=== PATIENT | female | born 1970 | race Caucasian/White ===

== ENCOUNTER 2023-08-29 09:25 | Outpatient (AMB) | payer OTHER, SELFPAY ==
--- NOTE | 2023-08-29 09:13 | A.OFFPC_ITS ---
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 Intake Note: New patient visit Allergies No Known Allergies Allergy (Verified 08/29/23 09:55) Medication List - Last Reconciled 08/29/23 by Jeanie Orantes PA-C calcium carbonate 1,200 mg PO DAILY magnesium citrate 100 mg PO DAILY multivitamin 1 tab PO DAILY Tobacco use date assessed: 08/29/23 Dental Screening Dental Screen Date: 08/29/23 Did you have a dental visit in the last 12 months?: Yes Did you have a dental problem in the last 6 months where you did not have access to dental care?: No Was dental information given to patient?: Patient has dentist 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 She is transferring from [facility]. She used to follow with N[facility]. She has a significant past medical history of alcohol abuse, thrombocytopenia, leukopenia, cirrhosis, oesteopenia, menopause, and insomnia. She states that she can not recall the she had labs. -she made this appointment today because she thinks she needs her blood checked. She does report easy bruising. She states in the last two months she has noted the increased easy bruising. She states that nothing will happen and she will wake up with bruising on her extremities. She will sometimes also get it around her pant lines. She does believe she has cirrhosis. She used to follow with GI at [facility] but states that she was lost to follow up a little over a year ago. -She does note a rash on the chest that started about 2 weeks. She denies any itching, inflammation or irritation. She has tried hydrocortisone cream without improvement. No pain with this rash. No changes in any products. -No spontaneous bloody noses, no fatigue . No blood in stool or urine. Psych: She does drink every day day. She was told to quit but has not. She has been drinking regularly since the age of 22. She states that she is currently following with a rehab counselor, [facility] and different support groups. She used to be on naltrexone which was somewhat effective but then she started drinking again. She states that she does have a good support system at home. Pap: due this coming year. Mammogram: overdue Bone density: osteopenia- completed in 2022- on calcium supplements Colonoscopy: 06/16/2022- due in7 years Mother has rectal ca PFSH Medical History Easy bruising Thrombocytopenia Menopause Loss of balance Hypersplenism Cytopenia ASCUS with positive high risk HPV cervical Alcoholic liver disease Alcohol abuse Family History (Updated 08/29/23 @ 09:20 by Sushma Aly CMA) Mother Cancer of rectum Father Hypertension Social History (Updated 08/29/23 @ 09:37 by Sushma Aly CMA) Housing: House (Two family house, second floor) Patient Tobacco Use Status: Never used Tobacco e-Cigarette/Vaping Use: Never Used Second Hand Smoke Exposure: Yes (Fiance vapes) service: No Current occupational status: employed 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 1. Little interest or pleasure in doing things: not at all 2. Feeling down, depressed, or hopeless: not at all 3. Trouble falling or staying asleep, or sleeping too much: more than half the days 4. Feeling tired or having little energy: several days 5. Poor appetite or overeating: more than half the days 6. Feeling bad about yourself - or that you are a failure or have let yourself or your family down: several days 7. Trouble concentrating on things, such as reading the newspaper or watching television: not at all 8. Moving or speaking so slowly that other people could have noticed. Or the opposite - being so fidgety or restless that you have been moving around a lot more than usual: not at all 9. Thoughts that you would be better off or of hurting yourself in some way: not at all Total score: 6 Depression Screening Interpretation: Positive Depression Screening Follow-up: Existing condition, In treatment, Community Mental Health Worker F/U and Declines treatment Depression Screening Done: Yes 92737 - PHQ-9 Billing: Yes Source: Developed by Drs. Hossein Dougherty, Song Carbajal and colleagues, with an educational marco a from [employer]. Thrive Questionnaire Date Thrive assessed: 08/29/23 I am a: Patient What is your living situation today?: I have a steady place to live Within the past 12 months, did the food you bought not last and you didn't have the money to get more?: Never true Within the past 12 months, did you worry whether your food would run out before you got money to buy more?: Never true Do you have trouble paying for medicines?: No Do you have trouble getting transportation to medical appointments?: No Do you have trouble paying your heating and electricity bill?: No Do you have trouble taking care of your child, family member or friend?: No Do you have trouble with day-to-day activities such as bathing, preparing meals, shopping, managing finances, etc.?: No Are you currently unemployed and looking for a job?: No Are you interested in more education?: No Please select the resources that you would like help with: None Currently or been in a relationship where the following occur: no concerns reported THRIVE Score: 0 AUDIT C Alcohol Use Questionnaire (AUDIT-C) 1. How often do you have a drink containing alcohol?: 2-3 times a week 2. How many drinks containing alcohol do you have on a typical day when you are drinking?: 3 or 4 3. How often do you have six or more drinks on one occasion?: Never Total Score: 4 Score Reviewed/Action Taken: Yes LETICIA-7 AMB Questionnaire LETICIA-7 Date LETICIA - 7 assessed: 08/29/23 Feeling nervous, anxious, or on edge: 1 = Several days Not being able to stop or control worryin = Several days Worrying too much about different things: 1 = Several days Trouble relaxin = Several days Being so restless that it is hard to sit still: 0 = Not at all Becoming easily annoyed or irritable: 0 = Not at all Feeling afraid as if something awful might happen: 0 = Not at all Total LETICIA-7 score (0-4 normal; 5-9 mild; 10-14 moderate; 15-21 severe): 4 Source: Developed by Starla Trevino Kurt Kroenke and colleagues, with an educational marco a from [employer]. LETICIA-7 Assessment Billing LETICIA-7 Assessment Tool: LETICIA-7 Assessment 34024 Physical exam (Primary Care) Vital Signs: Last Vital Signs Temp 98.4 F 08/29/23 09:34 Pulse 102 H 08/29/23 09:34 Resp 14 08/29/23 09:34 BP 100/60 08/29/23 09:34 Pulse Ox 96 08/29/23 09:34 Oxygen Delivery Method Room Air 08/29/23 09:34 BMI result Body Mass Index 22.3 Tobacco/Smoking Status: Tobacco use Status Tobacco use date assessed 08/29/23 08/29/23 09:37 Patient Tobacco Use Status Never used Tobacco 08/29/23 09:37 e-Cigarette/Vaping Use Never Used 08/29/23 09:37 PHQ-9: PHQ-9 Score PHQ-9: Total score 6 08/29/23 09:40 Depression Screening Interpretation: Positive Depression Screening Follow-up: Existing condition, In treatment, Community Mental Health Worker F/U and Declines treatment Thrive Assessment: Date of Thrive Assessment Date Thrive assessed 08/29/23 08/29/23 09:40 Currently or been in a relationship where the following occur: no concerns reported Const Orientation/consciousness: patient oriented x3 HENMT Ears: hearing grossly normal bilaterally Neck Thyroid: Thyroid normal Lymphatic: no lymphadenopathy noted Resp Auscultation: clear to auscultation bilaterally Cardio Rate: regular rate Rhythm: regular rhythm Heart sounds: S1 normal heart sound present and S2 normal heart sound present GI Inspection: Yes normal to inspection Palpation (GI): Soft to palpation and Other GI palpation findings present (nontender, no cva tenderness) Auscultation: normoactive bowel sounds Skin Other: There does appear to be a scattered petechial rash noted on her legs. She has a petechial rash along her bra strap line. She has purplish ecchymotic lesions throughout her lower extremities, 1 on her abdomen at the center belt line. Spider angiomas noted on the anterior upper chest wall. Neuro General: patient oriented x3, gait normal and no focal motor deficits Assessment and Plan Assessment & Plan (1) Alcoholic liver disease: Code(s): K70.9 - Alcoholic liver disease, unspecified Plan: Labs and ultrasound ordered. Referral to GI. (2) Thrombocytopenia: Code(s): D69.6 - Thrombocytopenia, unspecified Plan: We will check CBC. Strongly advised her to cut back on drinking. She is going to discuss this with her counselor and look for in addiction medicine specialist. She has not sure if she wants to do this yet but states that she will contact her insurance to see who she could see. She does understand that she can not just quit drinking cold turkey and we will need to cut back. We also discussed rehab facilities but she does not want to do this yet. (3) Easy bruising: Code(s): R23.3 - Spontaneous ecchymoses Plan: Labs ordered (4) Encounter to establish care: Code(s): Z76.89 - Persons encountering health services in other specified circumstances Plan: Labs ordered. Mammogram ordered. Referral to GI and mri tech placed. Requested records. Two week follow up. Sooner if needed. Patient understands and agrees with the plan. Orders: Orders Comprehensive Met. Panel Today D69.6 - Thrombocytopenia, unspecified, K70.9 - Alcoholic liver disease, unspecified, R23.3 - Spontaneous ecchymoses, Z76.89 - Persons encountering health services in other specified circumstances TSH reflex Free T4 Today D69.6 - Thrombocytopenia, unspecified, K70.9 - Alcoholic liver disease, unspecified, R23.3 - Spontaneous ecchymoses, Z76.89 - Persons encountering health services in other specified circumstances IRON PROFILE Today D69.6 - Thrombocytopenia, unspecified, K70.9 - Alcoholic liver disease, unspecified, R23.3 - Spontaneous ecchymoses, Z76.89 - Persons encountering health services in other specified circumstances Lipid Panel Today D69.6 - Thrombocytopenia, unspecified, K70.9 - Alcoholic liver disease, unspecified, R23.3 - Spontaneous ecchymoses, Z76.89 - Persons encountering health services in other specified circumstances MM screening mammo BI Today Z12.31 - Encounter for screening mammogram for malignant neoplasm of breast Complete Blood Count Auto Diff Today D69.6 - Thrombocytopenia, unspecified, K70.9 - Alcoholic liver disease, unspecified, R23.3 - Spontaneous ecchymoses, Z76.89 - Persons encountering health services in other specified circumstances Vitamin B12 and Folate Today D69.6 - Thrombocytopenia, unspecified, K70.9 - Alcoholic liver disease, unspecified, R23.3 - Spontaneous ecchymoses, Z76.89 - Persons encountering health services in other specified circumstances Ferritin Today D69.6 - Thrombocytopenia, unspecified, K70.9 - Alcoholic liver disease, unspecified, R23.3 - Spontaneous ecchymoses, Z76.89 - Persons encountering health services in other specified circumstances Referrals CUSTOMER PROJECT MANAGER Referral D69.6 - Thrombocytopenia, unspecified, K70.9 - Alcoholic liver disease, unspecified, Z01.419 - Encounter for gynecological examination (general) (routine) without abnormal findings Gastroenterology Referral D69.6 - Thrombocytopenia, unspecified, K70.9 - Alcoholic liver disease, unspecified Coding Level of Care Code New Pt Level 4 (21535) Complex EM visit Add On G2211 Diagnoses Alcoholic liver disease K70.9 Thrombocytopenia D69.6 Easy bruising R23.3 Encounter to establish care Z76.89 Additional Codes LETICIA-7 Assessment Billing - LETICIA-7 Assessment Tool: LETICIA-7 Assessment 62875 ([id number])
[2023-08-29 09:34] VITALS: BP 100/60; PULSE 102; RESP 14; TEMP 36.9; O2SAT 96; BMI 22.3
== END 2023-08-29 10:15 | disposition home or self-care (01) ==
PROVIDERS: PCP Family Medicine; Visit Provider Physician Assistant
DX: K70.9 Alcoholic liver disease, unspecified (principal); D69.6 Thrombocytopenia, unspecified; R23.3 Spontaneous ecchymoses; Z76.89 Persons encountering health services in other specified circumstances
CPT/HCPCS: 99204; G2211

== ENCOUNTER 2023-08-29 10:42 | Outpatient (REF) | payer OTHER, SELFPAY ==
[2023-08-29 15:37] LABS: Hemoglobin 11.1 g/dl (12.0-16.0); Imm Gran Abs Auto 0.03 X10*3/uL (0.00-0.03); Imm Gran Pct Auto 1.9 % (0.0-0.4); MANUAL DIFF FLAG SCAN; Red Cell Distribution Width 18.7 % (11.0-16.0); SCAN SMEAR FLAG 1
[2023-08-29 15:39] LABS: Basophils Percent Auto 2.6 % (0-2); Eosinophils Absolute Auto 0.1 X10*3/uL (0.0-0.4); Eosinophils Percent Auto 3.8 % (0-4); Hematocrit 33.2 % (37.0-47.0); Lymphocytes Absolute Auto 0.5 X10*3/uL (1.2-4.9); Lymphocytes Percent Auto 30.1 % (20-40); Mean Corpuscular HGB Conc 33.4 g/dl (31.0-35.0); Mean Corpuscular Hemoglobin 30.8 pg (27.0-33.0); Mean Corpuscular Volume 92.2 fL (80.0-98.0); Monocytes Absolute Auto 0.2 X10*3/uL (0.1-1.2); Monocytes Percent Auto 14.1 % (2-11); Neutrophils Absolute Auto 0.7 x10*3/uL (2.0-8.3); Neutrophils Percent Auto 47.5 % (45-73)
[2023-08-29 15:45] LABS: Alanine Aminotransferase 41 U/L (0-31); Albumin Level 3.9 g/dL (3.5-5.0); Alkaline Phosphatase 100 U/L (39-117); Anion Gap 11 (12-20); Aspartate Amino Transferase 180 U/L (5-31); Bilirubin Total 1.5 mg/dL (0.0-1.0); Blood Urea Nitrogen 3 mg/dL (9-16); Calcium 9.6 mg/dL (8.4-10.2); Carbon Dioxide 31 mmol/L (22-29); Chloride 105 mmol/L (96-108); Cholesterol 208 mg/dL (<200); Estimated Glomerular Filt Rate > 60; Glucose Random 104 mg/dL (60-115); HDL Cholesterol 105 mg/dL (>40); Iron 169 mcg/dL (30-160); LDL Cholesterol Calculated 92 mg/dL (<100); Percent Iron Saturation 53 % (15-50); Potassium 3.9 mmol/L (3.3-5.1); Sodium 143 mmol/L (135-145); Total Iron Binding Capacity 319 mcg/dL (228-428); Total Protein 7.7 g/dL (6.5-8.0); Triglycerides 59 mg/dL (<150); Unsaturated Iron Binding 150 ug/dL
[2023-08-29 15:59] LABS: Ferritin 82 ng/mL (10-250); TSH reflex Free T4 0.78 uIU/mL (0.32-4.0)
[2023-08-29 16:11] LABS: Folate > 20.0 ng/mL (> or = 4.0); Vitamin B12 866 pg/mL (200-900)
[2023-08-29 17:49] LABS: White Blood Count 1.6 X10*3/uL (4.8-10.8)
[2023-08-29 17:52] LABS: PLT ABN DIST 1; Platelet Count 12 X10*3/uL (160-400)
[2023-08-29 18:05] LABS: SLIDE REVIEW VERIFIED
== END 2023-08-29 10:43 | disposition home or self-care (01) ==
LOC: HO.WFDLDS 10:42
PROVIDERS: Visit Provider Physician Assistant
DX: R23.3 Spontaneous ecchymoses (principal); D69.6 Thrombocytopenia, unspecified; K70.9 Alcoholic liver disease, unspecified; Z76.89 Persons encountering health services in other specified circumstances
CPT/HCPCS: 36415; 80053; 80061; 82607; 82728; 82746; 83540; 84443; 85025

== ENCOUNTER 2023-08-30 10:41 | Inpatient (IN) | payer OTHER, SELFPAY ==
[2023-08-30] VITALS (8 sets, daily range): BP systolic 100–138; BP diastolic 56–71; PULSE 89–113; RESP 16–18; TEMP 36.8–37.1; O2SAT 96–99; BMI 22.5
--- NOTE | ~2023-08-30 | US_ITS ---
EXAMINATION: US ABDOMEN LIMITED CLINICAL INFORMATION: 53-year-old female with elevated LFTs questionable cirrhosis. COMPARISON: None available. TECHNIQUE: Real-time imaging of the right upper quadrant abdominal viscera. FINDINGS: PANCREAS: Normal. LIVER: Liver is heterogeneous with mildly nodular contour without intrahepatic masses, ductal dilatation. Not enlarged there is no ascites. There is hepatopetal flow in portal vein and hepatofugal flow and hepatic vein. GALLBLADDER: There is edematous wall of gallbladder measured 1.2 cm possibly fluid in the wall. There is no evidence of cholelithiasis. Sonographic Arboleda's sign reported positive. COMMON BILE DUCT: Normal in caliber measuring 0.7 cm in diameter. RIGHT KIDNEY: Normal. No hydronephrosis. No renal calculi or focal parenchymal lesions. The kidney measures 9.7 cm in maximum dimension. FREE FLUID: None. US/US abdomen limited IMPRESSION: Most likely acute acalculus cholecystitis with wall thickening, pericholecystic fluid collection and sonographic Arboleda's sign. This critical result was discussed with LUIZ Zavala on 06/04/2023 at 1318 hours and it was ascertained that the content and urgency of this report was understood at the time of direct communication.
--- NOTE | ~2023-08-30 | CT_ITS ---
EXAMINATION: CT HEAD WITHOUT CONTRAST CLINICAL INFORMATION: Headaches. Low platelet count COMPARISON: None available. TECHNIQUE: Contiguous axial imaging was performed from the skull base to vertex without intravenous administration of contrast. This CT examination was performed using dose optimization techniques as appropriate, variously including the following: *Automated exposure control *Adjustment of mA and/or kV according to patient size (this includes techniques or standardized protocols for targeted exams where dose is matched to indication/reason for exam; i.e. extremities or head) *Use of iterative reconstruction technique DLP: 567 mGy-cm FINDINGS: Sulci and ventricles are slightly prominent but there is no intra or extra-axial fluid collection or hemorrhage, mass, or mass effect. Calvarium intact. CT/CT head/brain wo IV con IMPRESSION: No intracranial hemorrhage.
--- NOTE | 2023-08-30 11:18 | ED.GENADULT ---
HPI - General Adult General Chief complaint: Recheck/Abnormal Lab/Rx Stated complaint: abnormal labs Time Seen by Provider: 08/30/23 12:34 Source: patient Mode of arrival: ambulatory Limitations: no limitations History of Present Illness ED Provider: DR. Joshi HPI narrative: 53-year-old female history of alcohol abuse, history of thrombocytopenia sent from her new PCP office for significant thrombocytopenia, patient report easy bruising and black and white lesion on her left lower extremity, patient also admit to drinking alcohol every day patient suffer from alcohol withdrawal symptoms including shakiness, withdrawal seizure. Patient admit to on and off black stool Today patient had a normal color bowel movement. Otherwise no bleeding from anywhere else. Related Data Home Medications ?Medication ?Instructions ?Recorded ?Confirmed calcium carbonate 1,200 mg PO DAILY 08/29/23 08/30/23 magnesium citrate 100 mg capsule 100 mg PO BEDTIME 08/29/23 08/30/23 multivitamin 1 tab PO DAILY 08/29/23 08/30/23 arnica 20 % topical tincture 1 ea topical TID 08/30/23 08/30/23 Allergies Allergy/AdvReac Type Severity Reaction Status Date / Time No Known Allergies Allergy Verified 08/30/23 11:20 Review of Systems Review of Systems: All other systems are reviewed and are negative Constitutional: Reports as per HPI and Reports no additional constitutional complaints Eyes: Reports as per HPI and Reports no additional eye complaints Reports system reviewed and no additional complaints, except as documented Cardiovascular: Reports as per HPI and Reports no additional cardiovascular complaints Respiratory: Reports as per HPI and Reports no additional respiratory complaints Gastrointestinal: Reports as per HPI and Reports no additional gastrointestinal complaints Genitourinary: Reports no additional female genitourinary complaints Musculoskeletal: Reports no additional musculoskeletal complaints Skin/Breast: Reports system reviewed and no additional complaints, except as docu Psychiatric: Reports no additional psychiatric complaints Endocrine: Reports no additional endocrine complaints Hematologic/Lymphatic: Reports no additional hematologic/lymphatic complaints Allergic/Immunologic: Reports no additional allergic/immunologic complaints Reports system reviewed and no additional complaints, except as documented and Reports Abnormal speech present PMFSH Past Medical History Medical History Easy bruising Thrombocytopenia Menopause Loss of balance Hypersplenism Cytopenia ASCUS with positive high risk HPV cervical Alcoholic liver disease Alcohol abuse Family History Family History Mother Cancer of rectum Father Hypertension Social History Social History Housing: House (Two family house, second floor) Alcohol intake: current Alcohol intake frequency: 3 or more drinks per day Alcohol type: beer and hard liquor Patient Tobacco Use Status: Never used Tobacco Smoked in Last 30 Days: No e-Cigarette/Vaping Use: Never Used Second Hand Smoke Exposure: Yes (Fiance vapes) Use of substances other than those prescribed or required for medical reasons: No Advance Directives: No Advance Directives Information Provided: Yes service: No Current occupational status: employed 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 Blood pressure elevated. Heart rate normal. Respiratory rate normal. Temperature normal. Oxygen saturation normal. Appearance: Alert. Oriented X3. No acute distress. Head: Normal external exam. Normocephalic. Atraumatic. No Long signs noted. No raccoon eyes noted Eyes: PERRLA. EOMI. Conjunctiva and sclera normal. Eyelids normal. ENT: TM's Normal. Pharynx normal. Uvula midline. Moist mucous membranes. No trismus noted. No drooling noted. No muffled voice noted. Neck: Normal inspection. Neck supple. FROM. No adenopathy. Thyroid Normal. No meningeal signs. No neck mass noted. CVS: Normal heart rate and rhythm. Heart sound normal. No murmurs noted. Pulses normal throughout. Respiratory: No respiratory distress. Painless inspiration. Breath sounds normal. No wheezes/rales/rhonchi noted. Chest nontender. No accessory muscle usage noted or decreased air movement noted. Abdomen: Soft and nontender. Bowel sounds normal in all 4 quadrants. No distention noted. No organomegaly noted. No visible injury noted. Rectal exam: Brown stool guaiac negative, no active bleeding. Back: No CVA tenderness. Full range of motion noted. Skin: Skin warm and dry. Normal skin color. Normal skin turgor. No rashes/lesions/lacerations noted. Extremities: Multiple random ecchymosis on both lower extremity. Neuro: Oriented X 3. Cranial nerve exam: II-XII are grossly intact No motor deficit. No sensory deficit. Reflexes normal. Course Course Course Narrative: This is an RME done by LUIZ Valladares: Additional HPI, ROS, PE not included below will be deferred to primary provider. 53 year old female pmh of thrombocytopenia, menopause, hypersplenism, cytopenia, alcoholic liver disease, alcohol abuse presents with concerns of low platelet count (12), according to her PCP. Reports she drinks about 5-6 beers a day, the last drink today before she came in. Denies pain, dizziness, nausea. She reports easy bruising. Chemistry results from 08/28 show pancytopenia. Appearance: Alert.? Oriented X3.? No acute cardiopulmonary distress distress.? Head: Normocephalic, atraumatic, no step-offs or deformities CVS: Pulses normal.? Respiratory: No respiratory distress.? Abdomen: Soft and nontender.? Skin: ? Normal skin color. Extremities: 5/5 strength to bilateral upper and lower extremities Neuro: Oriented X 3.? No motor deficit.? No sensory deficit. Reevaluation(s) Reevaluation #1: 53-year-old female report history of alcoholic liver cirrhosis and chronic thrombocytopenia, came in with platelet of 10,000 with on an of black stool, case discussed with Dr. Diaz who recommended transfuse 2 units of platelet. Patient will need admission and serial CBC because potential history of alcohol withdrawal will start the patient on phenobarb. Time: 13:15 Medications Administered Discontinued Medications Generic Name Dose Route Start Last Admin Trade Name Freq PRN Reason Stop Dose Admin Phenobarbital Sodium 168 mg 08/30/23 14:00 08/30/23 14:31 Phenobarbital Sodium 130 Mg/Ml Im Once IM 08/30/23 14:01 168 mg ONCE ONE Administration Medical Decision Making Differential Diagnosis Differential Diagnoses: The differential diagnosis associated with the presentation includes ( Active GI bleed, hematuria, coagulopathy, thrombocytopenia, severe anemia, electrolyte derangement, alcohol withdrawal, Intracranial bleed.) Admission/Observation Consideration of admission/observation: Escalation of care including admission/observation considered Consult Healthcare Provider Management of the patient was discussed with: Hospitalist ( Dr. Merchant ) Lab Data MDM Lab Attestation statement: I reviewed the patient's lab results. 08/30/23 12:02 08/30/23 12:02 Labs: Lab Results 08/30/23 08/30/23 08/30/23 Range/Units 12:02 13:18 14:23 WBC 1.7 L (4.8-10.8) X10*3/uL RBC 3.63 L (4.20-5.50) X10*6/uL Hgb 11.3 L (12.0-16.0) g/dl Hct 33.7 L (37.0-47.0) % MCV 92.8 (80.0-98.0) fL MCH 31.1 (27.0-33.0) pg MCHC 33.5 (31.0-35.0) g/dl RDW 18.7 H (11.0-16.0) % Plt Count 10 L* (160-400) X10*3/uL MPV 9.9 (9.4-12.3) fL Immature Gran % (Auto) 0.0 (0.0-0.4) % Neut % (Auto) 51.9 (45-73) % Lymph % (Auto) 27.5 (20-40) % Pen[place] % (Auto) 17.0 H (2-11) % Eos % (Auto) 1.8 (0-4) % Baso % (Auto) 1.8 (0-2) % Lymph # (Auto) 0.5 L (1.2-4.9) X10*3/uL [place] # (Auto) 0.3 (0.1-1.2) X10*3/uL Eos # (Auto) 0.0 (0.0-0.4) X10*3/uL Baso # (Auto) 0.0 (0.0-0.2) X10*3/uL Abs Immat Gran (auto) 0.00 (0.00-0.03) X10*3/uL Absolute Neuts (auto) 0.9 L (2.0-8.3) x10*3/uL Absolute Nucleated RBC 0.000 (0.0-0.012) X10*3/uL Nucleated RBC % (auto) 0.0 (0.0-0.2) /100WBC Smear Tech's Comments VERIFIED PT 15.4 H (11.1-13.3) SEC INR 1.3 H (0.9-1.1) Sodium 144 (135-145) mmol/L Potassium 4.0 (3.3-5.1) mmol/L Chloride 105 (96-108) mmol/L Carbon Dioxide 30 H (22-29) mmol/L Anion Gap 13 (12-20) BUN 4 L (9-16) mg/dL Creatinine 0.58 (0.5-1.4) mg/dL Estim Creat Clear Calc 93.8 Estimated GFR > 60 Random Glucose 100 (60-115) mg/dL Calcium 9.8 (8.4-10.2) mg/dL Magnesium 1.7 (1.6-2.6) mg/dL Total Bilirubin 1.5 H (0.0-1.0) mg/dL AST 184 H (5-31) U/L ALT 41 H (0-31) U/L Alkaline Phosphatase 103 (39-117) U/L Total Protein 7.8 (6.5-8.0) g/dL Albumin 4.0 (3.5-5.0) g/dL Stool Occult Blood NEGATIVE (NEGATIVE) Ethyl Alcohol 356 H* mg/dL Blood Type A Positive Antibody Screen NEGATIVE Independent Interpretation I performed an independent interpretation of an: CT Scan ( Head: No acute intracranial bleed.) Radiology Impression Discussion of test interpretation with radiology: I have reviewed the radiologist's reading. Critical Care Time Critical Care Time Critical Care Time: Yes Total Critical Care Time: 45 Attestation: The patient was critically ill with a high probability of imminent or life-threatening deterioration. I spent greater than 30 minutes of discontinuous time evaluating the patient, delivering critical care at the bedside, discussing evaluating data with consultants. Critical care time does not include time spent performing separately billable procedures or teaching. Time spent performing critical care was 45 minutes. Discharge Plan Discharge Clinical Impression: Thrombocytopenia, Alcohol withdrawal Patient Disposition: Admitted As Inpatient
[2023-08-30 12:11] LABS: Basophils Percent Auto 1.8 % (0-2); Eosinophils Percent Auto 1.8 % (0-4); Hematocrit 33.7 % (37.0-47.0); Hemoglobin 11.3 g/dl (12.0-16.0); Lymphocytes Absolute Auto 0.5 X10*3/uL (1.2-4.9); Lymphocytes Percent Auto 27.5 % (20-40); MANUAL DIFF FLAG SCAN; Mean Corpuscular HGB Conc 33.5 g/dl (31.0-35.0); Mean Corpuscular Hemoglobin 31.1 pg (27.0-33.0); Mean Corpuscular Volume 92.8 fL (80.0-98.0); Mean Platelet Volume 9.9 fL (9.4-12.3); Monocytes Absolute Auto 0.3 X10*3/uL (0.1-1.2); Neutrophils Absolute Auto 0.9 x10*3/uL (2.0-8.3); Neutrophils Percent Auto 51.9 % (45-73); Red Blood Count 3.63 X10*6/uL (4.20-5.50); Red Cell Distribution Width 18.7 % (11.0-16.0); SCAN SMEAR FLAG 1
[2023-08-30 12:12] LABS: White Blood Count 1.7 X10*3/uL (4.8-10.8)
[2023-08-30 12:14] LABS: INTERNATIONAL NORM RATIO 1.3 (0.9-1.1); Platelet Count 10 X10*3/uL (160-400); Prothrombin Time 15.4 SEC (11.1-13.3)
[2023-08-30 12:22] LABS: Alanine Aminotransferase 41 U/L (0-31); Alkaline Phosphatase 103 U/L (39-117); Anion Gap 13 (12-20); Aspartate Amino Transferase 184 U/L (5-31); Bilirubin Total 1.5 mg/dL (0.0-1.0); Blood Urea Nitrogen 4 mg/dL (9-16); Calcium 9.8 mg/dL (8.4-10.2); Carbon Dioxide 30 mmol/L (22-29); Chloride 105 mmol/L (96-108); Creatinine Clr Calc Pharmacy 93.8; Estimated Glomerular Filt Rate > 60; Ethanol 356 mg/dL; Glucose Random 100 mg/dL (60-115); Magnesium 1.7 mg/dL (1.6-2.6); Sodium 144 mmol/L (135-145); Total Protein 7.8 g/dL (6.5-8.0)
[2023-08-30 12:34] LABS: SLIDE REVIEW VERIFIED
--- NOTE | 2023-08-30 14:14 | PHA.MEDREC ---
Pharmacy Consult ? Medication Reconciliation Pharmacy has completed the medication reconciliation.
[2023-08-30] MEDS: PHENobarbitaL sodium 130 MG/ML IM ONCE 168 MG IM (14:31)
[2023-08-30 14:33] LABS: OBS Int Ctl Valid YES; OBS1 NEGATIVE (NEGATIVE)
--- NOTE | 2023-08-30 15:21 | P.HPHOSP_ITS ---
<Statement entered by Teresa Merchant MD - 09/03/23 14:30> the patient was seen and evaluated with LUIZ Zavala. I agree with her note, assessment and plan with the following. In summary, a 53 years old lady with PMH of alcohol use disorder, hepatic cirrhosis , portal hypertension, and pancytopenia presenting intoxicated with alcohol with severe pancytopenia Pancytopenia likely related to alcoholism. check retics, hep C,B and HIV get hematology eval CIWA protocol and PHenobarbital for the withdrawals Rest of evaluations by PA note. History of Present Illness Date of Service: 08/30/23 Attending physician on admission: Teresa Merchant Chief Complaint: low blood counts 53-year-old female with alcohol use disorder, hepatic cirrhosis complicated by portal hypertension, and pancytopenia presents to the ED at the recommendation of her PCP following CBC reflective of severe pancytopenia. The patient reports she has been drinking between 6-8 beers on a daily basis though her partner (yvonne Hook at bedside) notes that they are often additional nips consumed throughout the day. She has significant bruising throughout her body. She also reports several episodes of dark stool over the last few weeks but is also taking iron supplementation. No fevers, chills, abdominal pain, nausea, vomiting, diarrhea, hematochezia, shortness of breath, lightheadedness, syncope, chest pain. She denies any comorbid mood disorder and denies any SI/HI. Since arrival, patient tachycardic to 113, vital signs otherwise stable. She is pancytopenic with WBC 1.7, RBC 3.63, H/H 11.3/33.7% (stable from yesterday), platelets 10,000. Renal function within normal limits, electrolyte levels normal. Total bilirubin 1.5, AST 184, ALT 41. PT 15.4, INR 1.3. Ethyl alcohol level 356. Head CT pending but on my read appears to have some atrophy but negative for any acute intracranial abnormality. ED discuss case with hematology recommending transfusion of 2 units platelets. She has also been loaded with phenobarbital per protocol. Review of Systems 2 Review of Systems: Yes all other systems are reviewed and are negative PMFSH Medical History Easy bruising Thrombocytopenia Menopause Loss of balance Hypersplenism Cytopenia ASCUS with positive high risk HPV cervical Alcoholic liver disease Alcohol abuse Family History Mother Cancer of rectum Father Hypertension Social History Housing: House (Two family house, second floor) Alcohol intake: current Alcohol intake frequency: 3 or more drinks per day Alcohol type: beer and hard liquor Patient Tobacco Use Status: Never used Tobacco Smoked in Last 30 Days: No e-Cigarette/Vaping Use: Never Used Second Hand Smoke Exposure: Yes (Fiance vapes) Use of substances other than those prescribed or required for medical reasons: No Advance Directives: No Advance Directives Information Provided: Yes Nutrition Risks: No Nutritional Risk service: No Current occupational status: employed 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 [employer] Current occupational exposures/hazards: No Cognitive needs: No Hearing needs: No Vision needs: No Meds Allergies Allergy/AdvReac Type Severity Reaction Status Date / Time No Known Allergies Allergy Verified 08/30/23 11:20 Active Medications: Current Medications Acetaminophen (Acetaminophen 325 Mg Tablet) 650 mg PO Q6H PRN PRN Reason: Pain, Mild (Pain Scale 1-3) Sodium Chloride (Ns) 1,000 mls @ 100 mls/hr IVCONT .Q10H BOOM Thiamine HCl 100 mg/ Sodium (Chloride) 101 mls @ 202 mls/hr IV DAILY BOOM Folic Acid 1 mg/ Sodium (Chloride) 50.2 mls @ 100.4 mls/hr IV DAILY BOOM Stop: 09/01/23 09:29 Magnesium Hydroxide (Milk Of Magnesia 30 Ml Oral.Susp) 30 ml PO DAILY PRN PRN Reason: Constipation Ondansetron HCl (Ondansetron Hcl 4 Mg/2 Ml Vial) 4 mg IVPUSH Q8H PRN PRN Reason: Nausea and Vomiting Pharmacy Consult (Consult Rx Etoh Phenob Im/Po) 1 each MISCELLANE ONCE PRN; Protocol PRN Reason: Consult order Phenobarbital (Phenobarbital 15 Mg Tablet) 45 mg PO BID BOOM Stop: 09/01/23 21:01 Phenobarbital (Phenobarbital 30 Mg Tablet) 30 mg PO BID BOOM Stop: 09/03/23 21:01 Phenobarbital (Phenobarbital 30 Mg Tablet) 30 mg PO DAILY BOOM Stop: 09/05/23 09:01 Phenobarbital Sodium (Phenobarbital Sodium 65 Mg/Ml Vial Q3hx2) 126 mg IM Q3H BOOM Stop: 08/30/23 20:01 Sodium Chloride (0.9 % Sodium Chloride Flush 3 Ml Syringe) 3 ml IVFLUSH QSHIFT [facility] Home Medications ?Medication ?Instructions ?Recorded ?Confirmed ?Last Taken ?Type calcium carbonate 1,200 mg PO DAILY 08/29/23 08/30/23 08/30/23 History magnesium citrate 100 mg capsule 100 mg PO BEDTIME 08/29/23 08/30/23 08/29/23 History multivitamin 1 tab PO DAILY 08/29/23 08/30/23 Unknown History arnica 20 % topical tincture 1 ea topical TID 08/30/23 08/30/23 Unknown History Physical Exam 2 Vital Signs and Narrative: Vital Signs: Last Vital Signs Temp 98.2 F 08/30/23 14:51 Pulse 107 H 08/30/23 14:51 Resp 16 08/30/23 14:51 BP 121/68 08/30/23 14:51 Pulse Ox 97 08/30/23 14:45 O2 Del Method Room Air 08/30/23 14:45 BMI result Body Mass Index 22.5 Constitutional - Awake and Alert, No apparent distress Eyes - PERRLA, EOMI Cardiovascular - S1S2, RRR, No edema Respiratory - Normal lung expansion, Normal respiratory effort, No respiratory distress, CTA bilaterally Gastrointestinal - NT / ND; +BS; No rebound or guarding Extremities - no calf tenderness bilaterally, no swelling Skin - Warm/Dry Neurological - Alert & oriented to self and place (reports its 2014 but does correct herself), slurred speech, slight tremors. CN II-XII otherwise in tact. 5/5 strength bue and ble Psychological - Appropriate affect Results Labs 08/30/23 12:02 08/30/23 12:02 Labs: Laboratory Results - last 24 hr 08/30/23 08/30/23 08/30/23 12:02 13:18 14:23 MCV 92.8 MCH 31.1 MCHC 33.5 RDW 18.7 H Plt Count 10 L* MPV 9.9 Immature Gran % (Auto) 0.0 Neut % (Auto) 51.9 Lymph % (Auto) 27.5 [place] % (Auto) 17.0 H Eos % (Auto) 1.8 Baso % (Auto) 1.8 Lymph # (Auto) 0.5 L [place] # (Auto) 0.3 Eos # (Auto) 0.0 Baso # (Auto) 0.0 Abs Immat Gran (auto) 0.00 Absolute Neuts (auto) 0.9 L Absolute Nucleated RBC 0.000 Nucleated RBC % (auto) 0.0 Smear Tech's Comments VERIFIED PT 15.4 H INR 1.3 H Anion Gap 13 Estim Creat Clear Calc 93.8 Estimated GFR > 60 Random Glucose 100 Calcium 9.8 Magnesium 1.7 Total Bilirubin 1.5 H AST 184 H ALT 41 H Alkaline Phosphatase 103 Total Protein 7.8 Albumin 4.0 Stool Occult Blood NEGATIVE Ethyl Alcohol 356 H* Blood Type A Positive Antibody Screen NEGATIVE Assessment and Plan (1) Alcohol withdrawal: Status: Acute (2) Pancytopenia: Status: Acute (3) Easy bruising: Status: Acute (4) Alcoholic liver disease: Status: Acute Plan 53-year-old female with alcohol use disorder, hepatic cirrhosis complicated by portal hypertension, and pancytopenia admitted for further management of severe pancytopenia in the setting of alcoholic cirrhosis and alcohol intoxication with impending withdrawal. #severe pancytopenia- due to alcoholic liver disease -WBC 1.8, plt 10k -transfuse 2 units platelets per hematology -OOB with assist -hematology consult -head ct pending but appears negative for acute intracranial abnormality -follow cbc #Chronic normocytic anemia -h/h baseline, above transfusion threshold #Dark stool- ongoing weeks -stool occult blood negative -follow h/h closely, hold on gi consult for now -add po ppi # alcohol use disorder with impending withdrawal -intoxicated on arrival with ethyl alcohol level 356 -slightly tremulous on exam but continue slurring speech. Head CT pending -phenobarbital per protocol initiated by ED provider. Continue phenobarbital -monitor CIWA q.4h -IV thiamine, folic acid -addiction medicine consult -alcohol cessation advised #Sonography reported acute cholecystis -pt afebrile without RUQ ttp, no n/v -lipase wnl -continue ivf -monitor for now # alcoholic liver disease- with portal htn- probable cirrhosis -plan as above -had ultrasound elastography performed 10/2021- given elevated liver enzymes with vascular congetsion, stage of liver fibrosis was felt to possibly be overestimated. Liver elastography stiffness value 17.5, however consistent with cirrhosis -us abd rohit ordered dvt prophylaxis- scps full code Patient requires inpatient stay at least 2 midnights for management of severe pancytopenia requiring expert consultation and platelet transfusion with close monitoring of blood counts and will also require treatment with phenobarbital per protocol for impending alcohol withdrawal in patient who does desire detox Quality Stroke Does the patient have a stroke diagnosis?: No VTE Prior VTE?: No VTE Risk Level:: Medical - moderate - high VTE Device Contraindication: N/A - Device Ordered VTE Drug Contraindication: Treatment Not Indicated
[2023-08-30] MEDS: Folic Acid 1 MG in 0.9 % Sodium Chloride 50 ML 100.4 MG IV (16:43)
[2023-08-30] MEDS: 0.9 % Sodium Chloride 1,000 ML 100 ML IVCONT (17:27)
[2023-08-30] MEDS: Thiamine HCL 100 MG in 0.9 % Sodium Chloride 100 ML 202 MG IV (17:28)
[2023-08-30] MEDS: PHENobarbitaL sodium 65 MG/ML VIAL Q3Hx2 126 MG IM ×2 (17:43→20:35)
[2023-08-30 18:05] LABS: Amphetamine Screen Urine Not Detected (Not Detect); Appearance Urine Clear; Barbiturates, Urine POSITIVE (Not Detect); Benzodiazepines Screen Urine Not Detected (Not Detect); Buprenorphine Scr Not Detected (Not Detect); Cannabinoid Screen Urine Not Detected (Not Detect); Cocaine Screen Urine Not Detected (Not Detect); Color Urine Yellow; Fentanyl, urine Not Detected (Not Detect); Glucose Urine UA Negative (Negative); Leukocyte Esterase Urine Negative (Negative); Methadone Screen, Urine Not Detected (Not Detect); Nitrite Urine Negative (Negative); Opiate Screen Urine Not Detected (Not Detect); Oxycodone Screen Urine Not Detected (Not Detect); Phencyclidine Screen Urine Not Detected (Not Detect); Specific Gravity - Urine 1.015 (1.005-1.025); Urine Blood Negative (Negative); Urine Ketones Trace mg/dL (Negative); Urine Protein Negative (Neg-Trace)
[2023-08-30 20:02] LABS: Lipase 55 U/L (8-78)
--- NOTE | 2023-08-30 23:48 | PC.NURSE ---
pt resting comfortably with eyes closed, breathing even and unlabored, no apparent distress noted.
[2023-08-31 00:52] VITALS: BP 113/59; PULSE 93; RESP 16; TEMP 36.1; O2SAT 93
[2023-08-31 00:55] VITALS: BMI 24.1
[2023-08-31 03:11] VITALS: BP 116/68; PULSE 100; RESP 16; TEMP 36.7; O2SAT 95
[2023-08-31] MEDS: 0.9 % Sodium Chloride 1,000 ML 100 ML IVCONT ×3 (03:11→20:34)
[2023-08-31] MEDS: Omeprazole 20 MG CAPSULE.DR PO (05:31)
[2023-08-31 06:31] LABS: Basophils Percent Auto 1.6 % (0-2); Eosinophils Percent Auto 2.4 % (0-4); Hemoglobin 9.6 g/dl (12.0-16.0); Lymphocytes Absolute Auto 0.4 X10*3/uL (1.2-4.9); Lymphocytes Percent Auto 33.9 % (20-40); MANUAL DIFF FLAG SCAN; Mean Corpuscular HGB Conc 33.1 g/dl (31.0-35.0); Mean Corpuscular Hemoglobin 30.1 pg (27.0-33.0); Mean Corpuscular Volume 90.9 fL (80.0-98.0); Mean Platelet Volume 9.5 fL (9.4-12.3); Monocytes Absolute Auto 0.2 X10*3/uL (0.1-1.2); Monocytes Percent Auto 16.5 % (2-11); Neutrophils Absolute Auto 0.6 x10*3/uL (2.0-8.3); Neutrophils Percent Auto 45.6 % (45-73); Red Blood Count 3.19 X10*6/uL (4.20-5.50); Red Cell Distribution Width 18.6 % (11.0-16.0); SCAN SMEAR FLAG 1; White Blood Count 1.3 X10*3/uL (4.8-10.8)
[2023-08-31 06:35] LABS: Platelet Count 14 X10*3/uL (160-400)
--- NOTE | 2023-08-31 06:38 | PC.NURSE ---
Lab called for a critical WBC= 1.[address] =14, relayed to Dr. Feliciano.
[2023-08-31 06:43] LABS: Anion Gap 11 (12-20); Blood Urea Nitrogen 3 mg/dL (9-16); Calcium 8.8 mg/dL (8.4-10.2); Carbon Dioxide 26 mmol/L (22-29); Chloride 107 mmol/L (96-108); Creatinine Clr Calc Pharmacy 106.7; Estimated Glomerular Filt Rate > 60; Glucose Random 89 mg/dL (60-115); Potassium 3.7 mmol/L (3.3-5.1); Sodium 140 mmol/L (135-145)
[2023-08-31 07:35] VITALS: BP 141/72; PULSE 102; RESP 18; TEMP 36.9; O2SAT 98
[2023-08-31 07:38] LABS: SLIDE REVIEW VERIFIED
[2023-08-31] MEDS: 0.9 % Sodium Chloride Flush 3 ML SYRINGE IVFLUSH (09:15)
[2023-08-31] MEDS: PHENobarbitaL 15 MG TABLET 45 MG PO ×2 (09:16→20:34)
[2023-08-31] MEDS: Thiamine HCL 100 MG in 0.9 % Sodium Chloride 100 ML 202 MG IV (09:16)
[2023-08-31] MEDS: Multivitamin TABLET 1 TAB PO (09:16)
--- NOTE | 2023-08-31 09:31 | MHC.CM.PN ---
Patient from home w/ partner, Monster. Functionally independent. Denies use of DME or services. PCP Camron Molina MD Patient completed HCP naming HCA's: 1) mom Debo [phone] and 2) partner Monster Patient reports daily drinking. States she has community resources including a life skills coach and therapist at [facility] in [place]. She is aware of consult to addiction med and open to discussing w/ wheel and caster repairer. DP: Home self care vs addiction med intervention. Partner can provide transportation. CM will continue to follow.
[2023-08-31] MEDS: Folic Acid 1 MG in 0.9 % Sodium Chloride 50 ML 100.4 MG IV (11:29)
--- NOTE | 2023-08-31 11:59 | HO.PM.IMPN ---
Subjective Subjective Date of Service: 08/31/23 Interval History: Seen and evaluated this morning feels better overall but still tremelous denies fever or chills Review of Systems Review of Systems: Yes all other systems are reviewed and are negative Physical Exam Vital Signs: Vital Signs: Last Vital Signs Temp 98.4 F 08/31/23 07:35 Pulse 102 H 08/31/23 07:35 Resp 18 08/31/23 07:35 BP 141/72 H 08/31/23 07:35 Pulse Ox 98 08/31/23 07:35 O2 Del Method Room Air 08/31/23 07:35 BMI result Body Mass Index 24.1 Const: Other: Constitutional : Awake, interactive Neck : Normal inspection, Supple Cardiovascular : RRR, no JVP, no lower extremity edema Respiratory : good bilateral air entry, no crackles, wheezes or rhonchi Gastrointestinal: soft, lax, Normal bowel sounds, Non tender Skin : Warm, Dry Neurological : Alert & oriented x3, No focal deficit, tremors on rest worse with movement Objective Data Active Medications Acetaminophen (Acetaminophen 325 Mg Tablet) 650 mg PO Q6H PRN PRN Reason: Pain, Mild (Pain Scale 1-3) Calcium Carbonate (Calcium Carbonate 500 Mg Tablet) 1,000 mg PO DAILY [facility] Last Admin: 08/31/23 09:16 Dose: 1,000 mg Documented By: JM Sodium Chloride (Ns) 1,000 mls @ 100 mls/hr IVCONT .Q10H [facility] Last Admin: 08/31/23 03:11 Dose: 100 mls/hr Documented By: HERNAN Thiamine HCl 100 mg/ Sodium (Chloride) 101 mls @ 202 mls/hr IV DAILY [facility] Last Infusion: 08/31/23 10:21 Dose: Infused Documented By: JM Folic Acid 1 mg/ Sodium (Chloride) 50.2 mls @ 100.4 mls/hr IV DAILY [facility] Stop: 09/01/23 09:29 Last Admin: 08/31/23 11:29 Dose: 100.4 mls/hr Documented By: JM Magnesium Hydroxide (Milk Of Magnesia 30 Ml Oral.Susp) 30 ml PO DAILY PRN PRN Reason: Constipation Multivitamins/Vitamin C (Multivitamin Tablet) 1 tab PO DAILY [facility] Last Admin: 08/31/23 09:16 Dose: 1 tab Documented By: JM Omeprazole (Omeprazole 20 Mg Capsule.Dr) 20 mg PO DAILY@0630 [facility] Last Admin: 08/31/23 05:31 Dose: 20 mg Documented By: HERNAN Ondansetron HCl (Ondansetron Hcl 4 Mg/2 Ml Vial) 4 mg IVPUSH Q8H PRN PRN Reason: Nausea and Vomiting Pharmacy Consult (Consult Rx Etoh Phenob Im/Po) 1 each MISCELLANE ONCE PRN; Protocol PRN Reason: Consult order Phenobarbital (Phenobarbital 15 Mg Tablet) 45 mg PO BID [facility] Stop: 09/01/23 21:01 Last Admin: 08/31/23 09:16 Dose: 45 mg Documented By: JM Phenobarbital (Phenobarbital 30 Mg Tablet) 30 mg PO BID [facility] Stop: 09/03/23 21:01 Phenobarbital (Phenobarbital 30 Mg Tablet) 30 mg PO DAILY [facility] Stop: 09/05/23 09:01 Sodium Chloride (0.9 % Sodium Chloride Flush 3 Ml Syringe) 3 ml IVFLUSH QSHIFT [facility] Last Admin: 08/31/23 09:15 Dose: 3 ml Documented By: JM Labs 08/31/23 05:57 08/31/23 05:57 Labs: Laboratory Results - last 24 hr 08/30/23 08/30/23 08/30/23 12:02 13:18 14:23 MCV 92.8 MCH 31.1 MCHC 33.5 RDW 18.7 H Plt Count 10 L* MPV 9.9 Immature Gran % (Auto) 0.0 Neut % (Auto) 51.9 Lymph % (Auto) 27.5 [place] % (Auto) 17.0 H Eos % (Auto) 1.8 Baso % (Auto) 1.8 Lymph # (Auto) 0.5 L [place] # (Auto) 0.3 Eos # (Auto) 0.0 Baso # (Auto) 0.0 Abs Immat Gran (auto) 0.00 Absolute Neuts (auto) 0.9 L Absolute Nucleated RBC 0.000 Nucleated RBC % (auto) 0.0 Smear Tech's Comments VERIFIED PT 15.4 H INR 1.3 H Anion Gap 13 Estim Creat Clear Calc 93.8 Estimated GFR > 60 Random Glucose 100 Calcium 9.8 Magnesium 1.7 Total Bilirubin 1.5 H AST 184 H ALT 41 H Alkaline Phosphatase 103 Total Protein 7.8 Albumin 4.0 Lipase 55 Urine Color Urine Appearance Urine pH Ur Specific [place] Urine Protein Urine Glucose (UA) Urine Ketones Urine Blood Urine Nitrite Ur Leukocyte Esterase Stool Occult Blood NEGATIVE Urine Opiates Screen Ur Buprenorphine Scrn Ur Oxycodone Screen Urine Methadone Screen Urine Fentanyl Screen Ur Barbiturates Screen Ur Phencyclidine Scrn Ur Amphetamines Screen U Benzodiazepines Scrn Urine Cocaine Screen U Marijuana (THC) Screen Ethyl Alcohol 356 H* Blood Type A Positive Antibody Screen NEGATIVE 08/30/23 08/31/23 17:40 05:57 MCV 90.9 MCH 30.1 MCHC 33.1 RDW 18.6 H Plt Count 14 L* MPV 9.5 Immature Gran % (Auto) 0.0 Neut % (Auto) 45.6 Lymph % (Auto) 33.9 [place] % (Auto) 16.5 H Eos % (Auto) 2.4 Baso % (Auto) 1.6 Lymph # (Auto) 0.4 L [place] # (Auto) 0.2 Eos # (Auto) 0.0 Baso # (Auto) 0.0 Abs Immat Gran (auto) 0.00 Absolute Neuts (auto) 0.6 L Absolute Nucleated RBC 0.000 Nucleated RBC % (auto) 0.0 Smear Tech's Comments VERIFIED PT INR Anion Gap 11 L Estim Creat Clear Calc 106.7 Estimated GFR > 60 Random Glucose 89 Calcium 8.8 D Magnesium Total Bilirubin AST ALT Alkaline Phosphatase Total Protein Albumin Lipase Urine Color Yellow Urine Appearance Clear Urine pH 6.0 Ur Specific [place] 1.015 Urine Protein Negative Urine Glucose (UA) Negative Urine Ketones Trace Urine Blood Negative Urine Nitrite Negative Ur Leukocyte Esterase Negative Stool Occult Blood Urine Opiates Screen Not Detected Ur Buprenorphine Scrn Not Detected Ur Oxycodone Screen Not Detected Urine Methadone Screen Not Detected Urine Fentanyl Screen Not Detected Ur Barbiturates Screen POSITIVE H Ur Phencyclidine Scrn Not Detected Ur Amphetamines Screen Not Detected U Benzodiazepines Scrn Not Detected Urine Cocaine Screen Not Detected U Marijuana (THC) Screen Not Detected Ethyl Alcohol Blood Type Antibody Screen Assessment and Plan (1) Alcohol withdrawal: Status: Acute (2) Pancytopenia: Status: Acute (3) Alcoholic liver disease: Status: Acute (4) Thrombocytopenia: Status: Acute Plan 53-year-old female with alcohol use disorder, hepatic cirrhosis complicated by portal hypertension, and pancytopenia admitted for further management of severe pancytopenia in the setting of alcoholic cirrhosis and alcohol intoxication with impending withdrawal. #severe pancytopenia likely due to alcoholic liver disease no signs of infection or bleeding WBC 1.3, plt 14k transfused 2 units platelets per hematology hematology consult, Transfuse PLT if less than 10 or bleeding follow CBC #Chronic normocytic anemia h/h baseline, above transfusion threshold #Dark stool takes Iron supplement stool occult blood negative po ppi # alcohol use disorder with acute withdrawal Head CT negative for any acute findings intoxicated on admission but was started on PHenobarbital at that time More tremulous this morning Continue phenobarbital, add extra doses if needed CIWA q.4h IV thiamine, folic acid addiction medicine consult keep on IVF today #Sonography reported acute cholecystis afebrile without RUQ ttp, no n/v lipase wnl continue ivf monitor # alcoholic liver disease with portal htn The patient likely has cirrhosis as US showing heterogenicity and nodular surface of liver dvt prophylaxis- scps full code Patient requires inpatient stay overnight for management of severe pancytopenia requiring expert consultation and platelet transfusion with close monitoring of blood counts and will also require treatment with phenobarbital per protocol for alcohol withdrawal in patient who does desire detox Quality Stroke Does the patient have a stroke diagnosis?: No VTE Prior VTE?: No VTE Risk Level:: Medical - moderate - high VTE Device Contraindication: N/A - Device Ordered VTE Drug Contraindication: Treatment Not Indicated
--- NOTE | 2023-08-31 12:43 | PM.HEMONCCN ---
Subjective - Subjective Chief complaint: Consult for: Pancytopenia. Patient: new to practice Consult date: 08/31/23 Requesting Physician: Shonda Primary Care Provider: Camron Molina MD Family Provider: Jesse. Medical Summary: DIAGNOSIS: PANCYTOPENIA. LIVER CIRRHOSIS. HPI - Consult Narrative Reason for consult: Consult for: Pancytopenia. Narrative: Mimi Suarez is a 53 year old lady, with alcohol use disorder, hepatic cirrhosis complicated by portal hypertension, and pancytopenia presents to the ED at the recommendation of her PCP following CBC reflective of severe pancytopenia. She has been drinking between 6-8 beers on a daily basis though her partner (yvonne Hook at bedside) notes that they are often additional nips consumed throughout the day. She has significant bruising throughout her body. She also reports several episodes of dark stool over the last few weeks but is also taking iron supplementation. No fevers, chills, abdominal pain, nausea, vomiting, diarrhea, hematochezia, shortness of breath, lightheadedness, syncope, chest pain. She denies any comorbid mood disorder and denies any SI/HI. On arrival, she was tachycardic to 113, vital signs otherwise stable. DATABASE: She is pancytopenic with WBC 1.7, RBC 3.63, H/H 11.3/33.7% (stable from yesterday), platelets 10,000. Renal function within normal limits, electrolyte levels normal. Total bilirubin 1.5, AST 184, ALT 41. PT 15.4, INR 1.3. Ethyl alcohol level 356. Head CT pending but on my read appears to have some atrophy but negative for any acute intracranial abnormality. She was transfused 2 units platelets. She has also been loaded with phenobarbital per protocol. Review of Systems Review of Systems: Yes all other systems are reviewed and are negative PMFSH Medical History Easy bruising Thrombocytopenia Menopause Loss of balance Hypersplenism Cytopenia ASCUS with positive high risk HPV cervical Alcoholic liver disease Alcohol abuse Family History: Mother Cancer of rectum Father Hypertension Review of Systems - Constitutional Reports system reviewed and no additional complaints, except as documented, Reports anorexia, Reports body ache(s), Reports daytime sleepiness, Reports fatigue, Reports lack of energy, Reports malaise, Reports poor appetite, Reports weight loss - Eyes Reports system reviewed and no additional complaints, except as documented - ENT Reports system reviewed and no additional complaints, except as documented - Cardiovascular Reports system reviewed and no additional complaints, except as documented - Respiratory Reports no additional respiratory complaints - Gastrointestinal Reports system reviewed and no additional complaints, except as documented - Genitourinary Reports no additional female genitourinary complaints - Musculoskeletal Reports system reviewed and no additional complaints, except as documented - Integumentary/Breasts Skin/Breast: Reports no additional skin complaints - Neurologic Reports system reviewed and no additional complaints, except as documented - Psychiatric Reports system reviewed and no additional complaints, except as documented - Endocrine Reports no additional endocrine complaints - Hematologic/Lymphatic Reports system reviewed and no additional complaints, except as documented - Allergic/Immunologic Reports system reviewed and no additional complaints, except as documented Oncology Screenings - ECOG Performance Status ECOG Performance Status: 2 [facility] Medical History: Medical History (Last Reviewed 08/30/23 @ 15:34 by LUIZ Zavala) Alcohol abuse Alcoholic liver disease ASCUS with positive high risk HPV cervical Cytopenia Easy bruising Hypersplenism Loss of balance Menopause Thrombocytopenia Functional capacity: bed bound Patient : No Family History: Family History (Last Reviewed 08/30/23 @ 15:34 by LUIZ Zavala) Mother Cancer of rectum Father Hypertension Social History: Social History (Last Reviewed 08/30/23 @ 15:34 by LUIZ Zavala) Living Situation History: Household Members: Significant Other Housing: Apartment Tobacco History: Patient Tobacco Use Status: Never used Tobacco e-Cigarette/Vaping Use: Never Used Second Hand Smoke Exposure: Yes Second Hand Smoke Exposure comment: Fiance vapes Occupation Assessmet: service: No Current occupational status: employed 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[employer] Current occupational exposures/hazards: No Home Medications and Allergies Current Medications: Current Medications Acetaminophen (Acetaminophen 325 Mg Tablet) 650 mg PO Q6H PRN PRN Reason: Pain, Mild (Pain Scale 1-3) Calcium Carbonate (Calcium Carbonate 500 Mg Tablet) 1,000 mg PO DAILY BOOM Last Admin: 08/31/23 09:16 Dose: 1,000 mg Sodium Chloride (Ns) 1,000 mls @ 100 mls/hr IVCONT .Q10H [facility] Last Admin: 08/31/23 12:15 Dose: 100 mls/hr Thiamine HCl 100 mg/ Sodium (Chloride) 101 mls @ 202 mls/hr IV DAILY [facility] Last Infusion: 08/31/23 10:21 Dose: Infused Folic Acid 1 mg/ Sodium (Chloride) 50.2 mls @ 100.4 mls/hr IV DAILY [facility] Stop: 09/01/23 09:29 Last Infusion: 08/31/23 12:12 Dose: Infused Magnesium Hydroxide (Milk Of Magnesia 30 Ml Oral.Susp) 30 ml PO DAILY PRN PRN Reason: Constipation Multivitamins/Vitamin C (Multivitamin Tablet) 1 tab PO DAILY [facility] Last Admin: 08/31/23 09:16 Dose: 1 tab Omeprazole (Omeprazole 20 Mg Capsule.Dr) 20 mg PO DAILY@0630 [facility] Last Admin: 08/31/23 05:31 Dose: 20 mg Ondansetron HCl (Ondansetron Hcl 4 Mg/2 Ml Vial) 4 mg IVPUSH Q8H PRN PRN Reason: Nausea and Vomiting Pharmacy Consult (Consult Rx Etoh Phenob Im/Po) 1 each MISCELLANE ONCE PRN; Protocol PRN Reason: Consult order Phenobarbital (Phenobarbital 15 Mg Tablet) 45 mg PO BID [facility] Stop: 09/01/23 21:01 Last Admin: 08/31/23 09:16 Dose: 45 mg Phenobarbital (Phenobarbital 30 Mg Tablet) 30 mg PO BID [facility] Stop: 09/03/23 21:01 Phenobarbital (Phenobarbital 30 Mg Tablet) 30 mg PO DAILY [facility] Stop: 09/05/23 09:01 Phenobarbital Sodium (Phenobarbital Sodium 130 Mg/Ml Vial) 130 mg IM ONCE PRN PRN Reason: Alcohol Withdrawal Sodium Chloride (0.9 % Sodium Chloride Flush 3 Ml Syringe) [facility] Last Admin: 08/31/23 09:15 Dose: 3 ml Home Medications ?Medication ?Instructions ?Recorded ?Confirmed ?Type calcium carbonate 1,200 mg PO DAILY 08/29/23 08/30/23 History magnesium citrate 100 mg capsule 100 mg PO BEDTIME 08/29/23 08/30/23 History multivitamin 1 tab PO DAILY 08/29/23 08/30/23 History arnica 20 % topical tincture 1 ea topical TID 08/30/23 08/30/23 History Allergies Allergy/AdvReac Type Severity Reaction Status Date / Time No Known Allergies Allergy Verified 08/30/23 11:20 Physical Exam Vital signs: Vital Signs Temp 98.4 F 08/31/23 07:35 Pulse 102 H 08/31/23 07:35 Resp 18 08/31/23 07:35 BP 141/72 H 08/31/23 07:35 Pulse Ox 98 08/31/23 07:35 O2 Del Method Room Air 08/31/23 07:35 Intake & Output 08/30/23 08/31/23 08/31/23 18:59 06:59 18:59 Intake Total 524.2 / 2097.533 1573.333 / 2097.533 1057.867 / 1057.867 Balance 524.2 / 2097.533 1573.333 / 2097.533 1057.867 / 1057.867 Intake: Intake, Oral Amount 600 / 600 Intake (Blood Product) Amount 273 / 273 Plt Aph Pas Pathreduced(E8343) 273 / 273 Unit [id number] Intake, IV Amount 251.2 / 1224.533 973.333 / 6825.704 7891.867 / 1057.867 0.9 % Sodium Chloride 100 ml @ 100 / 100 100 mls/hr IV ONCE ONE Rx#: [id number] Folic Acid 1 mg In 0.9 % Sodium 50.2 / 50.2 50.2 / 50.2 Chloride 50 ml @ 100.4 mls/hr IV DAILY [facility] Rx#:[id number] Thiamine HCL 100 mg In 0.9 % 101 / 101 101 / 101 Sodium Chloride 100 ml @ 202 mls/hr IV DAILY [facility] Rx#: [id number] 0.9 % Sodium Chloride 1,000 ml 973.333 / 973.333 906.667 / 906.667 @ 100 mls/hr IVCONT .Q10H [facility] Rx#:[id number] Other: Number of Unmeasured Voids 2 Urine Bathroom Urine Color Yellow Last Bowel Movement 08/30/23 Weight 57.6 kg 61.6 kg [place] Weight in Grams 11691 Weight 61.6 kg - Constitutional Present: moderate distress - Routine HEENT Exam Head: Present: normal inspection, normocephalic Eye: Present: normal appearance ENT: Present: mucous membranes moist - Routine Neck Exam Present: supple - Routine Respiratory Exam Present: CTAB - Routine Cardiovascular Exam Cardiovascular: Present: RRR, S2 - Routine Abdominal Exam Present: soft, tenderness, nontender - Routine Skin Exam Present: normal turgor - Routine Neurological Exam Present: alert - Detailed Neurological Exam: Coma Scale Eye Opening: Spontaneous (4) Verbal Response: Oriented (5) Motor Response: Obeys commands (6) Doris Coma Scale Total: 15 Hem/Onc Consult Result - Labs CBC & Chem 7: 09/02/23 05:36 09/02/23 05:36 Labs: Short CBC 08/31/23 Range/Units 05:57 WBC 1.3 L (4.8-10.8) X10*3/uL Hgb 9.6 L (12.0-16.0) g/dl Hct 29.0 L (37.0-47.0) % Plt Count 14 L* (160-400) X10*3/uL BMP 08/31/23 05:57 Sodium 140 Potassium 3.7 Chloride 107 Carbon Dioxide 26 BUN 3 L Creatinine 0.51 Calcium 8.8 D Urine 08/30/23 Range/Units 17:40 Urine Color Yellow Urine Appearance Clear Urine pH 6.0 (5.0-9.0) Ur Specific [place] 1.015 (1.005-1.025) Urine Protein Negative (Neg-Trace) mg/dL Urine Glucose (UA) Negative (Negative) mg/dL Assessment and Plan Patient Active problem list reviewed?: Yes (1) Pancytopenia Status: Acute Assessment and plan: 53-year-old lady with chronic alcoholism, cirrhosis of the liver, presented with significant bruising and black stools. Noted to be pancytopenic, more so then baseline. DIFFERENTIAL DIAGNOSIS: 1. HYPERSPLENISM: From alcohol-related cirrhosis. Most Likely. 2. ACUTE ALCOHOL INTOXICATION: Contributing to the pancytopenia from toxic suppressive effect of alcohol. 3. UNDERLYING INFECTION: HIV versus hepatitis B or C. 4. COLLAGEN VASCULAR DISORDER: Lupus versus rheumatoid arthritis. 5. MYELO INFILTRATIVE DISORDER: MDS, lymphoma, multiple myeloma. Less likely, in this young girl with already known cirrhosis of the liver. PLAN: Will proceed with further evaluation. Check HIV and hepatitis-B and C profiles: Negative. Check collagen vascular profile: ESR 10, RA <13. Transfuse platelets if count less than 10 or in case of systemic bleeding. Avoid nonsteroidals and aspirin. Abstain from alcohol. Addiction medicine consult. Thank you for this consult, I will follow along with you, CC: Jesse. - Time Spent With Patient Time Spent with Patient (in minutes): 30
[2023-08-31 13:36] LABS: Lactate Dehydrogenase 304 U/L (122-220)
[2023-08-31 13:39] LABS: Rheumatoid Factor < 13.0 IU/mL (<15.0)
[2023-08-31 14:04] LABS: HBS Num1 1.98 mIU/mL (0-7.99); HBc Num1 0.11 S/CO (0.00-0.79); HIV AB/AG Nonreactive (Nonreactive); HIV Num 1 0.07 S/CO (0.00-0.99); Hepatitis B Core Antibody Nonreactive (Nonreactive); Hepatitis B Surface Antigen Negative (Negative); ~HepC Num1 0.12 S/CO (0.00-0.79); ~Hepatitis B Surface Antibody NONREACTIVE (Nonreactive); ~Hepatitis C Antibody Nonreactive (Nonreactive)
[2023-08-31 14:12] LABS: Erythrocyte Sedimentation Rate 10 MM/HR (0-20)
[2023-08-31] MEDS: PHENobarbitaL sodium 130 MG/ML VIAL IM (14:44)
[2023-08-31 15:10] VITALS: BP 138/71; PULSE 97; RESP 15; TEMP 36.6; O2SAT 96
--- NOTE | 2023-08-31 16:09 | MHC.RECOVRN ---
Met with pt in 369 after consult placed to Addiction Medicine for alcohol use. Pt had presented to the ED for low platelets and daily alcohol use with a history of seizures. Upon evaluation, pt admitted for alcohol withdrawal, pancytopenia, alcohol related liver disease, and easy bruising. Pt sitting in bed, awake, alert, easily engages in conversation, guarded at times regarding alcohol use. Pts fiance Monster at bedside with pts permission. Pt reports 6-8 beers daily plus nips, unable to determine how many daily. Pt states nips once in awhile, Monster states at least one a day. Pt reports she has been drinking x 2 years, since she had been admitted to [facility] for alcohol withdrawal. Pt reports this was the only other admission related to alcohol, denies hx ATS admissions. Pt reports she met Monster 6 years ago while attending AA. At that time, pt reports she had almost a year in recovery. Pt reports that is her longest period of abstinence. Pt does not currently go to meetings, is open to returning. Pt reports she has a therapist at the [facility] in [place] along with a defensive line coach through [facility]. Pt voices desire for Vivitrol injection. Pt reports she initiated naltrexone during [facility] admission but had difficulty taking it daily--would prefer long acting injectable. Educated pt regarding medication, initiation, and Vivitrol injection. Pt would like to be connected to the [facility]. Discussed other recovery resources and supports, provided pt with written information. Pt denies questions or concerns for t/w. Pt has [facility] appt on 09/05 at 2PM. Discussed with Shelli Mcmahan APRN.
[2023-08-31 20:00] VITALS: BP 134/64; PULSE 96; RESP 20; TEMP 37.3; O2SAT 96
[2023-09-01 04:00] VITALS: BP 134/69; PULSE 100; RESP 16; TEMP 36.9; O2SAT 97
[2023-09-01] MEDS: 0.9 % Sodium Chloride 1,000 ML 100 ML IVCONT (05:31)
[2023-09-01] MEDS: Omeprazole 20 MG CAPSULE.DR PO (05:31)
[2023-09-01 07:19] VITALS: BP 124/60; PULSE 82; RESP 16; TEMP 36.6; O2SAT 96
[2023-09-01 07:27] LABS: Hematocrit 28.5 % (37.0-47.0); Hemoglobin 9.5 g/dl (12.0-16.0); Mean Corpuscular HGB Conc 33.3 g/dl (31.0-35.0); Mean Corpuscular Volume 93.1 fL (80.0-98.0); Mean Platelet Volume 11.4 fL (9.4-12.3); Red Blood Count 3.06 X10*6/uL (4.20-5.50); Red Cell Distribution Width 18.6 % (11.0-16.0)
[2023-09-01 07:31] LABS: Anion Gap 11 (12-20); Blood Urea Nitrogen 5 mg/dL (9-16); Calcium 8.7 mg/dL (8.4-10.2); Carbon Dioxide 24 mmol/L (22-29); Chloride 109 mmol/L (96-108); Creatinine Clr Calc Pharmacy 100.8; Estimated Glomerular Filt Rate > 60; Glucose Random 87 mg/dL (60-115); Potassium 3.8 mmol/L (3.3-5.1); Sodium 140 mmol/L (135-145)
[2023-09-01] MEDS: Multivitamin TABLET 1 TAB PO (07:36)
[2023-09-01] MEDS: Thiamine HCL 100 MG in 0.9 % Sodium Chloride 100 ML 202 MG IV (07:36)
[2023-09-01] MEDS: PHENobarbitaL 15 MG TABLET 45 MG PO ×2 (07:36→20:46)
[2023-09-01] MEDS: Folic Acid 1 MG in 0.9 % Sodium Chloride 50 ML 100.4 MG IV (07:37)
[2023-09-01] MEDS: 0.9 % Sodium Chloride Flush 3 ML SYRINGE IVFLUSH ×3 (07:37→20:49)
[2023-09-01 07:54] LABS: White Blood Count 1.2 X10*3/uL (4.8-10.8)
[2023-09-01 07:56] LABS: Platelet Count 16 X10*3/uL (160-400)
--- NOTE | 2023-09-01 12:26 | P.PNIM_ITS ---
Subjective Subjective Date of Service: 09/01/23 Interval History: Seen and evaluated this morning feels better overall and less tremelous need extra dose of Phenobarb last 24 hrs tolerating diet denies fever or chills Review of Systems Review of Systems: Yes all other systems are reviewed and are negative Physical Exam 2 Vital Signs: Vital Signs: Last Vital Signs Temp 97.9 F 09/01/23 07:19 Pulse 82 09/01/23 07:19 Resp 16 09/01/23 07:19 BP 124/60 09/01/23 07:19 Pulse Ox 96 09/01/23 07:19 O2 Del Method Room Air 09/01/23 07:19 BMI result Body Mass Index 24.1 Const: Other: Constitutional : Awake, interactive Neck : Normal inspection, Supple Cardiovascular : RRR, no JVP, no lower extremity edema Respiratory : good bilateral air entry, no crackles, wheezes or rhonchi Gastrointestinal: soft, lax, Normal bowel sounds, Non tender Skin : Warm, Dry Neurological : Alert & oriented x3, No focal deficit, minimal tremors with movement Objective Data Active Medications Acetaminophen (Acetaminophen 325 Mg Tablet) 650 mg PO Q6H PRN PRN Reason: Pain, Mild (Pain Scale 1-3) Calcium Carbonate (Calcium Carbonate 500 Mg Tablet) 1,000 mg PO DAILY [facility] Last Admin: 09/01/23 07:36 Dose: 1,000 mg Documented By: JULISA Folic Acid (Folic Acid 1 Mg Tablet) 1 mg PO DAILY [facility] Last Admin: 09/01/23 10:27 Dose: Not Given Documented By: JULISA Non-Admin Reason: per MD, can start PO tomorrow Magnesium Hydroxide (Milk Of Magnesia 30 Ml Oral.Susp) 30 ml PO DAILY PRN PRN Reason: Constipation Multivitamins/Vitamin C (Multivitamin Tablet) 1 tab PO DAILY [facility] Last Admin: 09/01/23 07:36 Dose: 1 tab Documented By: JULISA Omeprazole (Omeprazole 20 Mg Capsule.) 20 mg PO DAILY@0630 [facility] Last Admin: 09/01/23 05:31 Dose: 20 mg Documented By: HERNAN Ondansetron HCl (Ondansetron Hcl 4 Mg/2 Ml Vial) 4 mg IVPUSH Q8H PRN PRN Reason: Nausea and Vomiting Pharmacy Consult (Consult Rx Etoh Phenob Im/Po) 1 each MISCELLANE ONCE PRN; Protocol PRN Reason: Consult order Phenobarbital (Phenobarbital 15 Mg Tablet) 45 mg PO BID [facility] Stop: 09/01/23 21:01 Last Admin: 09/01/23 07:36 Dose: 45 mg Documented By: JULISA Phenobarbital (Phenobarbital 30 Mg Tablet) 30 mg PO BID [facility] Stop: 09/03/23 21:01 Phenobarbital (Phenobarbital 30 Mg Tablet) 30 mg PO DAILY [facility] Stop: 09/05/23 09:01 Phenobarbital Sodium (Phenobarbital Sodium 130 Mg/Ml Vial) 130 mg IM ONCE PRN PRN Reason: Alcohol Withdrawal Sodium Chloride (0.9 % Sodium Chloride Flush 3 Ml Syringe) 3 ml IVFLUSH QSHIFT [facility] Last Admin: 09/01/23 07:37 Dose: 3 ml Documented By: JULISA Thiamine HCl (Thiamine Hcl 100 Mg Tablet) 100 mg PO DAILY [facility] Labs 09/01/23 05:57 09/01/23 05:57 Labs: Laboratory Results - last 24 hr 08/31/23 08/31/23 09/01/23 05:57 13:11 05:57 MCV 93.1 MCH 31.0 MCHC 33.3 RDW 18.6 H Plt Count 16 L* MPV 11.4 Absolute Nucleated RBC 0.000 Nucleated RBC % (auto) 0.0 ESR 10 Anion Gap 11 L Estim Creat Clear Calc 100.8 Estimated GFR > 60 Random Glucose 87 Calcium 8.7 Lactate Dehydrogenase 304 H Rheumatoid Factor < 13.0 Hep Bs Antigen Negative Hep Bs Antibody NONREACTIVE Hep B Core Total Ab Nonreactive Hepatitis C Ab (EIA) Nonreactive HIV 1&2 Ab/P24 Ag 4thGn Nonreactive Assessment and Plan (1) Alcohol withdrawal: Status: Acute (2) Pancytopenia: Status: Acute (3) Alcoholic liver disease: Status: Acute Plan 53-year-old female with alcohol use disorder, hepatic cirrhosis complicated by portal hypertension, and pancytopenia admitted for further management of severe pancytopenia in the setting of alcoholic cirrhosis and alcohol intoxication with impending withdrawal. #severe pancytopenia likely due to alcoholic liver disease no signs of infection or bleeding WBC 1.3, plt 16k transfused 2 units platelets per hematology Negative HIV, Hep B&C Pending immunofixation, collagen vascular profile hematology consult, Transfuse PLT if less than 10 or bleeding , avoid aspirin and NSAIDs follow CBC #Chronic normocytic anemia h/h baseline, above transfusion threshold #Dark stool stool occult blood negative po ppi # alcohol use disorder with acute withdrawal improving Continue phenobarbital, add extra doses if needed CIWA protocol po thiamine, folic acid addiction medicine following; Pt has [facility] appt on 09/05 at 2PM To start Naltrexone once done with withdrawal, for OP Vivitrol inj #Sonography reported acute cholecystis afebrile without RUQ ttp, no n/v # alcoholic liver disease with portal htn The patient likely has cirrhosis as US showing heterogenicity and nodular surface of liver dvt prophylaxis- scps full code Patient requires inpatient stay overnight for management of severe pancytopenia requiring expert consultation and platelet transfusion with close monitoring of blood counts and will also require treatment with phenobarbital per protocol for alcohol withdrawal in patient who does desire detox Quality Stroke Does the patient have a stroke diagnosis?: No VTE Prior VTE?: No VTE Risk Level:: Medical - moderate - high VTE Device Contraindication: N/A - Device Ordered VTE Drug Contraindication: Treatment Not Indicated
[2023-09-01 15:06] VITALS: BP 123/85; PULSE 106; RESP 18; TEMP 36.4; O2SAT 97
[2023-09-01 19:09] VITALS: BP 153/79; PULSE 115; RESP 16; TEMP 36.9; O2SAT 99
[2023-09-01 20:53] VITALS: PULSE 92
[2023-09-02 03:00] VITALS: BP 137/63; PULSE 110; RESP 16; TEMP 36.3; O2SAT 98
[2023-09-02] MEDS: Omeprazole 20 MG CAPSULE.DR PO (05:54)
[2023-09-02 07:14] LABS: Anion Gap 10 (12-20); Blood Urea Nitrogen 6 mg/dL (9-16); Calcium 9.2 mg/dL (8.4-10.2); Carbon Dioxide 25 mmol/L (22-29); Chloride 108 mmol/L (96-108); Creatinine Clr Calc Pharmacy 95.5; Estimated Glomerular Filt Rate > 60; Glucose Random 85 mg/dL (60-115); Potassium 3.6 mmol/L (3.3-5.1); Sodium 139 mmol/L (135-145)
[2023-09-02 07:15] VITALS: BP 135/68; PULSE 93; RESP 16; TEMP 36.5; O2SAT 99
[2023-09-02 07:18] LABS: Hemoglobin 10.1 g/dl (12.0-16.0); PLT CLUMP 1
[2023-09-02 07:20] LABS: Hematocrit 30.5 % (37.0-47.0); Mean Corpuscular HGB Conc 33.1 g/dl (31.0-35.0); Mean Corpuscular Hemoglobin 31.2 pg (27.0-33.0); Mean Corpuscular Volume 94.1 fL (80.0-98.0); Mean Platelet Volume 11.3 fL (9.4-12.3); Red Blood Count 3.24 X10*6/uL (4.20-5.50); Red Cell Distribution Width 18.5 % (11.0-16.0)
[2023-09-02 07:21] LABS: White Blood Count 1.5 X10*3/uL (4.8-10.8)
[2023-09-02 07:30] LABS: Platelet Count 17 X10*3/uL (160-400)
[2023-09-02] MEDS: Thiamine HCL 100 MG TABLET PO (07:53)
[2023-09-02] MEDS: Multivitamin TABLET 1 TAB PO (07:53)
[2023-09-02] MEDS: Folic Acid 1 MG TABLET PO (07:53)
[2023-09-02] MEDS: PHENobarbitaL sodium 130 MG/ML VIAL IM (07:54)
[2023-09-02] MEDS: PHENobarbitaL 30 MG TABLET PO (07:54)
[2023-09-02] MEDS: 0.9 % Sodium Chloride Flush 3 ML SYRINGE IVFLUSH (07:55)
--- NOTE | 2023-09-02 11:35 | P.DS_ITS ---
DS: Providers Provider Date of Service: 09/02/23 Date of admission: 08/30/23 15:16 Primary care physician: Camron Molina MD Consults: 08/30/23 15:14 Consult to Hematology / Oncology Routine Consulting Provider: Joe Diaz Reason for consultation: severe pancytopenia in setting of cirrhosis 08/30/23 15:19 Addiction Medicine Routine Consulting Provider: Addiction Covering Reason for consultation: etoh dependence 08/31/23 01:11 Addiction Medicine Routine Consulting Provider: Addiction Covering Reason for consultation: alcohol use daily DS: Diagnosis Discharge Diagnosis (1) Alcohol withdrawal: Status: Acute (2) Pancytopenia: Status: Acute (3) Alcoholic liver disease: Status: Acute (4) Cirrhosis, alcoholic: Status: Acute DS: Summary Hospital Course Hospital Course: Admission note HPI 53-year-old female with alcohol use disorder, hepatic cirrhosis complicated by portal hypertension, and pancytopenia presents to the ED at the recommendation of her PCP following CBC reflective of severe pancytopenia. The patient reports she has been drinking between 6-8 beers on a daily basis though her partner (yvonne Hook at bedside) notes that they are often additional nips consumed throughout the day. She has significant bruising throughout her body. She also reports several episodes of dark stool over the last few weeks but is also taking iron supplementation. No fevers, chills, abdominal pain, nausea, vomiting, diarrhea, hematochezia, shortness of breath, lightheadedness, syncope, chest pain. She denies any comorbid mood disorder and denies any SI/HI. Since arrival, patient tachycardic to 113, vital signs otherwise stable. She is pancytopenic with WBC 1.7, RBC 3.63, H/H 11.3/33.7% (stable from yesterday), platelets 10,000. Renal function within normal limits, electrolyte levels normal. Total bilirubin 1.5, AST 184, ALT 41. PT 15.4, INR 1.3. Ethyl alcohol level 356. Head CT pending but on my read appears to have some atrophy but negative for any acute intracranial abnormality. ED discuss case with hematology recommending transfusion of 2 units platelets. She has also been loaded with phenobarbital per protocol. Hospital course #severe pancytopenia likely due to alcoholic liver disease as no signs of infection or bleeding. stable WBC 1.3, plt 17k after 2 units platelets transfusion per hematology with no evidence of bleeding. Negative HIV, Hep B&C. Pending immunofixation, collagen vascular profile.hematology evaluated the patient and recommended to transfuse PLT if less than 10 or bleeding , avoid aspirin and NSAIDs. To follow with PCP. She did not require PRBCs transfusion as H&H above transfusion threshold and had negative occult stool test. # history of alcohol use disorder with acute withdrawal Had positive alcohol level on admission. started to show symptoms of withdrawal and started on phenobarbital protocol in ED. added extra doses for increasing tremors. kept on CIWA protocol. She was also started on IV then po thiamine, folic acid. addiction medicine following; Pt has [facility] appt on 09/05 at 2PM with a plan to start Naltrexone once done with withdrawal, and for OP Vivitrol inj #Sonography reported acute cholecystis afebrile without RUQ ttp, no n/v. tolerated diet well. # alcoholic liver disease with portal htn The patient likely has cirrhosis as US showing heterogenicity and nodular surface of liver secondary to chronic alcohol usage. Discharge plan Complete abstinence from Alcohol Take Phenobarbital as prescribed drink plenty of fluids come back to ED if any worsening tremors, nausea or vomiting Follow with PCP as outpatient for pending blood results To repeat CBC next week Time Attestation Discharge Coordination Time (in mins): 37 Quality: Safe Use of Opioids Does Pt have an Active Cancer Diagnosis on the Problem List?: No Quality: Stroke Does the patient have a stroke diagnosis?: No Physical Exam Vital Signs: Vital Signs: Last Vital Signs Temp 97.7 F 09/02/23 07:15 Pulse 93 09/02/23 07:15 Resp 16 09/02/23 07:15 BP 135/68 09/02/23 07:15 Pulse Ox 99 09/02/23 07:15 O2 Del Method Room Air 09/02/23 07:15 BMI result Body Mass Index 24.1 Const: Other: Constitutional : Awake, interactive Neck : Normal inspection, Supple Cardiovascular : RRR, no JVP, no lower extremity edema Respiratory : good bilateral air entry, no crackles, wheezes or rhonchi Gastrointestinal: soft, lax, Normal bowel sounds, Non tender Skin : Warm, Dry Neurological : Alert & oriented x3, No focal deficit, minimal tremors DS: Data Data Completed and Pending Labs on day of discharge: Laboratory Results - last 24 hr 09/02/23 05:36 WBC 1.5 L RBC 3.24 L Hgb 10.1 L Hct 30.5 L MCV 94.1 MCH 31.2 MCHC 33.1 RDW 18.5 H Plt Count 17 L* MPV 11.3 Absolute Nucleated RBC 0.000 Nucleated RBC % (auto) 0.0 Sodium 139 Potassium 3.6 Chloride 108 Carbon Dioxide 25 Anion Gap 10 L BUN 6 L Creatinine 0.57 Estim Creat Clear Calc 95.5 Estimated GFR > 60 Random Glucose 85 Calcium 9.2 Discharge Plan Discharge Anticipated Discharge Date/Time: 09/02/23 11:17 Patient Disposition: Home, Self-Care Discharge Diagnosis: Alcohol abuse and withdrawal Pancytopenia Referrals: aCmron Molina MD [Primary Care Provider] - 1 Week Discharge Medications: New phenobarbital 30 mg Tablet 30 mg PO BID Qty: 6 0RF folic acid 1 mg Tablet 1 mg PO DAILY Qty: 90 0RF thiamine mononitrate (vit B1) 100 mg Tablet 100 mg PO DAILY Qty: 90 0RF omeprazole 20 mg Capsule,Delayed Release(Dr/Ec) 20 mg PO DAILY@0630 Qty: 90 0RF Continued arnica 20 % Tincture 1 ea TOPICAL TID multivitamin Tablet 1 tab PO DAILY magnesium citrate 100 mg capsule 100 mg PO BEDTIME calcium carbonate 600 mg calcium (1,500 mg) tablet 1,200 mg PO DAILY Discharge Orders: Discharge Order (Routine); Ordered 09/02/23 Ordered By: Teresa Merchant Diet: Advance to usual diet Activity on Discharge: As tolerated Stand Alone Forms: Patient Portal Discharge page Print Language: Croatian Other Ambulatory Orders: Complete Blood Count Auto Diff (Routine) Timeframe: 3 Days Facility: [facility] - Location: Laboratory Ordered By: Teresa Merchant Care Plan Goals: Complete abstinence from Alcohol Take Phenobarbital as prescribed drink plenty of fluids come back to ED if any worsening tremors, nausea or vomiting Follow with PCP as outpatient for pending blood results To repeat CBC next week Health Concerns: Read below Plan of Treatment: Read below Assessment: Read below
--- NOTE | 2023-09-02 11:54 | MHC.CM.PN ---
PT WILL DC HOME TODAY VIA PRIVATE TRANSPORT
[2023-09-04 13:13] LABS: Anti Nuclear Antibody Screen NEGATIVE (NEGATIVE)
[2023-09-05 18:43] LABS: IgA 534 mg/dL (47-310); IgG 1402 mg/dL (600-1640); IgM 294 mg/dL (50-300)
== END 2023-09-02 12:05 | disposition home or self-care (01) | DRG 660 ==
LOC: HO.ED 13:10 → HO.EDOVER 15:23 → HO.S3 23:51
PROVIDERS: Internal Medicine Medical Oncology; Physician Assistant; Admitting Provider Physician Assistant; Emergency Provider Emergency Medicine; PCP Family Medicine; Visit Provider Student in an Organized Health Care Education/Training Program
DX: D61.818 Other pancytopenia (principal); K81.0 Acute cholecystitis; K70.30 Alcoholic cirrhosis of liver without ascites; K76.6 Portal hypertension; F10.129 Alcohol abuse with intoxication, unspecified; F10.139 Alcohol abuse with withdrawal, unspecified; Y90.8 Blood alcohol level of 240 mg/100 ml or more; Z79.899 Other long term (current) drug therapy
CPT/HCPCS: 36415; 70450; 76705; 80048; 80053; 80307; 81003; 82272; 82784; 83615; 83690; 83735; 85025; 85027; 85610; 85652; 86038; 86334; 86431; 86704; 86706; 86803; 86850; 86900; 86901; 87340; 87389; 99285; J2560; J3411; P9073

== ENCOUNTER → 2023-08-30 15:16 | Outpatient (BNV) | payer OTHER, SELFPAY | PROVIDERS: Admitting Provider Physician Assistant; Emergency Provider Emergency Medicine; PCP Family Medicine; Visit Provider Internal Medicine Medical Oncology | DX: D61.818 Other pancytopenia (principal) | CPT/HCPCS: 99222 ==

== ENCOUNTER → 2023-08-30 15:16 | Outpatient (BNV) | payer OTHER, SELFPAY | PROVIDERS: Admitting Provider Physician Assistant; Emergency Provider Emergency Medicine; PCP Family Medicine; Visit Provider Student in an Organized Health Care Education/Training Program | DX: K70.9 Alcoholic liver disease, unspecified (principal); D61.818 Other pancytopenia; R23.3 Spontaneous ecchymoses; F10.939 Alcohol use, unspecified with withdrawal, unspecified | CPT/HCPCS: 99222; 99232; 99233; 99239 ==

== ENCOUNTER 2023-09-06 13:54 | Outpatient (AMB) | payer OTHER, SELFPAY ==
--- NOTE | 2023-09-06 15:15 | A.OFFVISCC_ITS ---
Intake Visit Reasons: MAT Intake Allergies No Known Allergies Allergy (Verified 09/12/23 09:34) HPI HPI MAT Intake: Details: Patient presents for intake States she has been drinking about 8 beers daily and nips, unable to say how efraín quevedo Denies any other substance use PCP Dr. Molina Works f/t at [employer] Stably housed, lives with her family Longest period of recovery was for 1 years and this was 5 yrs ago HAs been to detox years ago Has no providers at this time Being followed by GI for cirrhosis She would like to start naltrexone and transition to vivitrol Her goal is to stop drinking HPI Comments Details: Patient presents for MAT visit [facility] Medical History Pancytopenia Easy bruising Thrombocytopenia Menopause Loss of balance Hypersplenism Cytopenia ASCUS with positive high risk HPV cervical Alcoholic liver disease Alcohol abuse Family History Mother Cancer of rectum Father Hypertension Social History Household Members: Significant Other Housing: Apartment Alcohol intake: current Alcohol intake frequency: 3 or more drinks per day Alcohol type: beer and hard liquor Patient Tobacco Use Status: Never used Tobacco e-Cigarette/Vaping Use: Never Used Second Hand Smoke Exposure: Yes (Fiance vapes) service: No Current occupational status: employed 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 Current occupational exposures/hazards: No Cognitive needs: No Hearing needs: No Vision needs: No Review of Systems Const Reports as per HPI Physical Exam Const General: cooperative and no acute distress Resp Effort & Inspection: normal respiratory effort and able to speak in complete sentences Psych Appearance: grossly normal Mental Status: mental status grossly normal Speech and movement: Normal speech and movement present Affect: normal affect Attitude: cooperative Thought process: Normal thought process present Assessment & Plan Assessment & Plan (1) Alcohol use disorder, severe, dependence: Code(s): F10.20 - Alcohol dependence, uncomplicated Category: Medical Plan: -Start naltrexone, medication information and education provided verbally and with written handout -Harm reduction discussed -Recovery supports discussed -Follow up 1 week Medications: New naltrexone Take 1/2 pill for the first 3-4 days, if well tolerated advance to full pill 50 mg PO DAILY 30 tabs 0RF
== END 2023-09-06 14:46 | disposition home or self-care (01) ==
PROVIDERS: PCP Family Medicine; Visit Provider Nurse Practitioner Family
DX: F10.20 Alcohol dependence, uncomplicated (principal)
CPT/HCPCS: 99204

== ENCOUNTER → 2023-09-06 13:54 | Outpatient (BNVA) | payer OTHER, SELFPAY | PROVIDERS: PCP Family Medicine; Visit Provider Nurse Practitioner Family | DX: F10.20 Alcohol dependence, uncomplicated (principal); Z79.899 Other long term (current) drug therapy | CPT/HCPCS: 99202 ==

== ENCOUNTER 2023-09-12 09:24 | Outpatient (AMB) | payer OTHER, SELFPAY ==
--- NOTE | 2023-09-12 09:16 | A.OFFPC_ITS ---
Vital Signs 09/12/23 09:37 Height 5 ft 3 in Weight 125 lb 6 oz BMI 22.2 BP 102/58 L Blood Pressure Location Rt brachial Position Sitting Respiration 14 Pulse 72 Pulse Source Pulse Oximeter Temp 98.3 F Temp Source Oral Pulse Oximetry (%) 98 Oxygen Delivery Method Room Air Intake Visit Reasons: physical Intake Note: Physical and F/U on ED visit on . Family Support Coordinator Required: No Allergies No Known Allergies Allergy (Verified 09/12/23 09:34) Medication List - Last Reconciled 09/12/23 by Jeanie Orantes PA-C arnica 20% 1 ea topical TID calcium carbonate 1,200 mg PO DAILY folic acid 1 mg PO DAILY magnesium citrate 100 mg PO BEDTIME multivitamin 1 tab PO DAILY naltrexone 50 mg PO DAILY naltrexone microspheres ER (Vivitrol) 380 mg IM Q4W thiamine mononitrate (vit B1) 100 mg PO DAILY Tobacco use date assessed: 09/12/23 Dental Screening Dental Screen Date: 09/12/23 Did you have a dental visit in the last 12 months?: Yes Did you have a dental problem in the last 6 months where you did not have access to dental care?: No Was dental information given to patient?: Patient has dentist HPI physical HPI Details Patient is a 53-year-old female who presents today for a hospital follow up. She was recently seen and was noted to have severe thrombocytopenia and referred to the hospital for admission. She has a significant past medical history of alcohol abuse, thrombocytopenia, portal hypertension, pancytopenia, cirrhosis, oesteopenia, menopause, and insomnia. She was admitted on 08/29 and discharged on 09/01. Patient had previously reported drinking about 6-8 beers daily however, her fiance [employer], notes that she also consumes additional nips throughout the day. She has now been sober for 13 days. Her severe pancytopenia found likely to be due to alcoholic liver disease. She did have a transfusion of platelets. Her ultrasound showing heterogenicity in nodular surface of liver secondary to chronic alcohol usage. She was also found to be in acute withdrawal in the hospital and followed up with [facility] on 09/05 to start naltrexone and Vivitrol. She is going back to [facility] sunday to start Vivitrol. She was told to repeat CBC in 3 days from discharge which has not been done yet She is seeing hematology 09/25/23. She does not yet have an appointment with GI. -She does wonder today if she has a UTI. she has noted increased urinary frequency without dysuria, abdominal pain, fever or chills. Pap: due this coming year.- was referred previously to auto radio mechanic (has yet to hear) Mammogram: overdue- booked for March 17 Bone density: osteopenia- completed in 2022- on calcium supplements Colonoscopy: 06/16/2022- due in7 years Mother has rectal ca PFSH Medical History Pancytopenia Easy bruising Thrombocytopenia Menopause Loss of balance Hypersplenism Cytopenia ASCUS with positive high risk HPV cervical Alcoholic liver disease Alcohol abuse Family History Mother Cancer of rectum Father Hypertension Social History Household Members: Significant Other Housing: Apartment Alcohol intake: current Alcohol intake frequency: 3 or more drinks per day Alcohol type: beer and hard liquor Patient Tobacco Use Status: Never used Tobacco e-Cigarette/Vaping Use: Never Used Second Hand Smoke Exposure: Yes (Fiance vapes) service: No Current occupational status: employed 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 How often do you have a drink containing alcohol?: Never 3. How often do you have six or more drinks on one occasion?: Never Total Score: 0 LETICIA-7 AMB Questionnaire LETICIA-7 Date LETICIA - 7 assessed: 08/29/23 Source: Developed by Drs. Hossein Dougherty, Starla Harmon, Song Fernandez and colleagues, with an educational marco a from [employer]. Physical exam (Primary Care) Vital Signs: Last Vital Signs Temp 98.3 F 09/12/23 09:37 Pulse 72 09/12/23 09:37 Resp 14 09/12/23 09:37 BP 102/58 L 09/12/23 09:37 Pulse Ox 98 09/12/23 09:37 Oxygen Delivery Method Room Air 09/12/23 09:37 BMI result Body Mass Index 22.2 Tobacco/Smoking Status: Tobacco use Status Tobacco use date assessed 09/12/23 09/12/23 09:17 Patient Tobacco Use Status Never used Tobacco 09/12/23 09:17 e-Cigarette/Vaping Use Never Used 09/12/23 09:17 Thrive Assessment: Date of Thrive Assessment Date Thrive assessed 08/31/23 09/12/23 09:17 Const Orientation/consciousness: patient oriented x3 HENMT Ears: hearing grossly normal bilaterally and TM's normal bilaterally General nose exam: No nasal polyps present Face and sinus: Yes sinuses nontender Mouth: Normal oral and palatal mucosa present Eyes Pupils: Equal, round and reactive pupils present EOM: EOMs intact bilaterally Neck Neck: Yes full ROM and Yes no lymphadenopathy Thyroid: Thyroid normal Chest Chest palpation & inspection: normal inspection of the chest Resp Auscultation: clear to auscultation bilaterally Cardio Rate: regular rate Rhythm: regular rhythm Heart sounds: S1 normal heart sound present and S2 normal heart sound present Peripheral pulses: Peripheral pulses 2+ throughout GI Other: Soft, nontender Auscultation: normal bowel sounds Rectal Exam - Female: deferred General: Yes no CVA tenderness Back/Spine/Pelvis Other: Nontender Back: no CVA tenderness Skin General skin exam: no rashes or lesions noted Neuro General: patient oriented x3, gait normal, CN's II-XI intact bilaterally and deep tendon reflexes 2+ bilaterally Cranial nerves: Yes Equal, round and reactive pupils present Motor exam (neuro): 5/5 motor strength present throughout Sensory Exam: double simultaneous stimulation for sensation normal Coordination: [id number] test normal and Romberg test negative Extrem General: Yes normal to inspection and Yes full ROM Psych Affect: normal affect Attitude: cooperative Thought process: Normal thought process present Thought content: Normal thought content present Insight: Good insight present (Psych) Judgement: Good judgement present (Psych) Results Reviewed Results Reviewed: Laboratory Tests 09/01/23 09/02/23 05:57 05:36 WBC 1.2 L 1.5 L RBC 3.06 L 3.24 L Hgb 9.5 L 10.1 L Hct 28.5 L 30.5 L RDW 18.6 H 18.5 H Plt Count 16 L* 17 L* Sodium 139 Potassium 3.6 Chloride 108 Carbon Dioxide 25 Anion Gap 10 L BUN 6 L Creatinine 0.57 Estim Creat Clear Calc 95.5 Estimated GFR > 60 Random Glucose 85 Calcium 9.2 EXAMINATION: US ABDOMEN LIMITED CLINICAL INFORMATION: 53-year-old female with elevated LFTs questionable cirrhosis. COMPARISON: None available. TECHNIQUE: Real-time imaging of the right upper quadrant abdominal viscera. FINDINGS: PANCREAS: Normal. LIVER: Liver is heterogeneous with mildly nodular contour without intrahepatic masses, ductal dilatation. Not enlarged there is no ascites. There is hepatopetal flow in portal vein and hepatofugal flow and hepatic vein. GALLBLADDER: There is edematous wall of gallbladder measured 1.2 cm possibly fluid in the wall. There is no evidence of cholelithiasis. Sonographic Arboleda's sign reported positive. COMMON BILE DUCT: Normal in caliber measuring 0.7 cm in diameter. RIGHT KIDNEY: Normal. No hydronephrosis. No renal calculi or focal parenchymal lesions. The kidney measures 9.7 cm in maximum dimension. FREE FLUID: None. US/US abdomen limited IMPRESSION: Most likely acute acalculus cholecystitis with wall thickening, pericholecystic fluid collection and sonographic Arboleda's sign. This critical result was discussed with LUIZ Zavala on 06/04/2023 at 1318 hours and it was ascertained that the content and urgency of this report was understood at the time of direct communication. Assessment and Plan Assessment & Plan (1) Routine general medical examination at health care facility: Code(s): Z00.00 - Encounter for general adult medical examination without abnormal findings Plan: Health maintenance reviewed. Referrals have already been placed at our previous visit. (2) Increased urinary frequency: Code(s): R35.0 - Frequency of micturition Plan: UA ordered today is neg. Culture ordered. (3) Pancytopenia: Code(s): D61.818 - Other pancytopenia Plan: Following with Heme-Onc. We will check CBC today (4) Cirrhosis, alcoholic: Code(s): K70.30 - Alcoholic cirrhosis of liver without ascites Qualifiers: Ascites presence: without ascites Qualified Code(s): K70.30 - Alcoholic cirrhosis of liver without ascites Plan: Has been referred to GI. She will call. (5) Alcohol use disorder, severe, dependence: Code(s): F10.20 - Alcohol dependence, uncomplicated Plan: Following with [facility]. Starting Vivitrol injections on Sunday. Orders: Orders AMB Urinalysis Dipstick Today D61.818 - Other pancytopenia, F10.20 - Alcohol dependence, uncomplicated, K70.30 - Alcoholic cirrhosis of liver without ascites, R35.0 - Frequency of micturition Urine Culture Today D61.818 - Other pancytopenia, F10.20 - Alcohol dependence, uncomplicated, K70.30 - Alcoholic cirrhosis of liver without ascites, N39.0 - Urinary tract infection, site not specified, R35.0 - Frequency of micturition Complete Blood Count Auto Diff Today D61.818 - Other pancytopenia, F10.20 - Alcohol dependence, uncomplicated, K70.30 - Alcoholic cirrhosis of liver without ascites, R35.0 - Frequency of micturition Comprehensive Met. Panel Today D61.818 - Other pancytopenia, F10.20 - Alcohol dependence, uncomplicated, K70.30 - Alcoholic cirrhosis of liver without ascites, R35.0 - Frequency of micturition Coding Level of Care Code Est Pt Prev Care 40-64y(42924) Diagnoses Routine general medical examination at health care facility Z00.00 Increased urinary frequency R35.0 Pancytopenia D61.818 Alcoholic cirrhosis of liver without ascites K70.30 Ascites presence: without ascites Alcohol use disorder, severe, dependence F10.20
[2023-09-12 09:37] VITALS: BP 102/58; PULSE 72; RESP 14; TEMP 36.8; O2SAT 98; BMI 22.2
== END 2023-09-12 10:33 | disposition home or self-care (01) ==
PROVIDERS: PCP Family Medicine; Visit Provider Physician Assistant
DX: Z00.00 Encounter for general adult medical examination without abnormal findings (principal); D61.818 Other pancytopenia; K70.30 Alcoholic cirrhosis of liver without ascites; F10.20 Alcohol dependence, uncomplicated; R35.0 Frequency of micturition
CPT/HCPCS: 81002; 99396

== ENCOUNTER 2023-09-12 10:38 | Outpatient (REF) | payer OTHER, SELFPAY ==
[2023-09-12 14:40] LABS: MANUAL DIFF FLAG NO
[2023-09-12 14:47] LABS: Basophils Absolute Auto 0.1 X10*3/uL (0.0-0.2); Basophils Percent Auto 2.7 % (0-2); Eosinophils Absolute Auto 0.1 X10*3/uL (0.0-0.4); Eosinophils Percent Auto 4.1 % (0-4); Hematocrit 38.2 % (37.0-47.0); Hemoglobin 12.1 g/dl (12.0-16.0); Imm Gran Abs Auto 0.02 X10*3/uL (0.00-0.03); Imm Gran Pct Auto 0.7 % (0.0-0.4); Lymphocytes Absolute Auto 0.6 X10*3/uL (1.2-4.9); Lymphocytes Percent Auto 21.1 % (20-40); Mean Corpuscular HGB Conc 31.7 g/dl (31.0-35.0); Mean Corpuscular Volume 97.9 fL (80.0-98.0); Mean Platelet Volume 10.4 fL (9.4-12.3); Monocytes Absolute Auto 0.5 X10*3/uL (0.1-1.2); Neutrophils Absolute Auto 1.6 x10*3/uL (2.0-8.3); Neutrophils Percent Auto 54.4 % (45-73); Platelet Count 57 X10*3/uL (160-400); Red Cell Distribution Width 17.4 % (11.0-16.0); White Blood Count 2.9 X10*3/uL (4.8-10.8)
[2023-09-12 15:01] LABS: Alanine Aminotransferase 26 U/L (0-31); Albumin Level 3.9 g/dL (3.5-5.0); Alkaline Phosphatase 84 U/L (39-117); Anion Gap 9 (12-20); Aspartate Amino Transferase 54 U/L (5-31); Bilirubin Total 0.9 mg/dL (0.0-1.0); Blood Urea Nitrogen 7 mg/dL (9-16); Calcium 9.9 mg/dL (8.4-10.2); Carbon Dioxide 31 mmol/L (22-29); Chloride 104 mmol/L (96-108); Estimated Glomerular Filt Rate > 60; Glucose Random 90 mg/dL (60-115); Potassium 3.7 mmol/L (3.3-5.1); Sodium 140 mmol/L (135-145); Total Protein 7.6 g/dL (6.5-8.0)
== END 2023-09-12 10:39 | disposition home or self-care (01) ==
LOC: HO.WFDLDS 10:38
PROVIDERS: Referring Provider Student in an Organized Health Care Education/Training Program; Visit Provider Physician Assistant
DX: D61.818 Other pancytopenia (principal); N39.0 Urinary tract infection, site not specified; R35.0 Frequency of micturition; F10.20 Alcohol dependence, uncomplicated; K70.30 Alcoholic cirrhosis of liver without ascites
CPT/HCPCS: 36415; 80053; 85025; 87086; 87147

== ENCOUNTER 2023-09-14 09:24 | Outpatient (AMB) | payer OTHER, SELFPAY ==
[2023-09-14 09:42] VITALS: BP 142/92; PULSE 73; O2SAT 96
--- NOTE | 2023-09-14 09:42 | MHC.AM.SUB ---
Vital Signs 09/14/23 09:42 BP 142/92 H Blood Pressure Location Lt brachial Position Sitting Pulse 73 Pulse Source Pulse Oximeter Pulse Oximetry (%) 96 Oxygen Delivery Method Room Air Intake Visit Reasons: MAT Visit Allergies No Known Allergies Allergy (Verified 09/12/23 09:34) HPI HPI MAT Visit: Details: Patient presents for AUD treatment and follow up Reports she has had cravings 1-2 x daily, usually when driving by package stores Has been keeping busy with work Has not had any ETOH since hospital discharge She has been tolerating the naltrexone well, denies any side effects, feels as though it has been helpful HPI Comments Details: Patient presents for MAT visit PFS Medical History Pancytopenia Easy bruising Thrombocytopenia Menopause Loss of balance Hypersplenism Cytopenia ASCUS with positive high risk HPV cervical Alcoholic liver disease Alcohol abuse Family History Mother Cancer of rectum Father Hypertension Social History Household Members: Significant Other Housing: Apartment Alcohol intake: current Alcohol intake frequency: 3 or more drinks per day Alcohol type: beer and hard liquor Patient Tobacco Use Status: Never used Tobacco e-Cigarette/Vaping Use: Never Used Second Hand Smoke Exposure: Yes (Fiance vapes) service: No Current occupational status: employed 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/hazards: No Cognitive needs: No Hearing needs: No Vision needs: No Review of Systems Const Reports as per HPI Physical Exam Const General: cooperative and no acute distress Resp Effort & Inspection: normal respiratory effort and able to speak in complete sentences Psych Appearance: grossly normal Mental Status: mental status grossly normal Speech and movement: Normal speech and movement present Affect: normal affect Attitude: cooperative Thought process: Normal thought process present Assessment & Plan Assessment & Plan (1) Alcohol use disorder, severe, dependence: Code(s): F10.20 - Alcohol dependence, uncomplicated Category: Medical Plan: -Continue naltrexone -Follow up 1 week for vivitrol injection -Encouraged her to call [facility] with any questions or concerns
== END 2023-09-14 10:02 | disposition home or self-care (01) ==
PROVIDERS: PCP Family Medicine; Visit Provider Nurse Practitioner Family
DX: F10.20 Alcohol dependence, uncomplicated (principal)
CPT/HCPCS: 99213

== ENCOUNTER → 2023-09-14 09:24 | Outpatient (BNVA) | payer OTHER, SELFPAY | PROVIDERS: PCP Family Medicine; Visit Provider Nurse Practitioner Family | DX: F10.20 Alcohol dependence, uncomplicated (principal) | CPT/HCPCS: 99212 ==

== ENCOUNTER 2023-09-18 14:51 | Outpatient (AMB) | payer OTHER, SELFPAY ==
--- NOTE | 2023-09-18 14:58 | AM.OFFVISNUR ---
Intake Intake Visit Reasons: Vivitrol Inj Allergies No Known Allergies Allergy (Verified 09/12/23 09:34) Nursing Note Pt arrived to visit for monthly vivitrol injection. T/W reviewed SE to monitor for and treatment of those SE along with injection site reactions and comfort for these issues. Pt has been taking oral Naltrexone for approx 2 weeks and reports tolerating well. Is reporting some muscle cramping in thigh area and T/W reviewed use of heat and topical for relief. Pt was given Vivitrol identification and educated on importance of carrying this on her at all times. She was also educated on Notifying her providers of this medication whenever she has visits. Pt received Vivitrol 380mg in upper outter quad of left gluteal muscle. She tolerated well and was instructed re: aftercare of area and when to notify [facility]. Pt will F/U in clinic in one month. Office Meds Vivitrol 380 mg intramuscular suspension,extended release Performing Provider: Shelli Mcmahan CNP Performing Location: [facility] Administered by: Qi Mojica RN on 09/18/23 15:01 Dose Route Admin Location Dispensed Lot Number Expiration Date [facility] [employer] 380 mg IM UOQ of [employer] 380 mg [id number] 08/30/25 31741-108-96 [place] Comments: Pt tolerated injection well. Instructed on SE and when to call [facility]. Pt to F/U in one month. Coding Assessment & Plan Assessment & Plan Orders: Orders AMB Naltrexone Injection Patient Supplied (NC) Today F10.20 - Alcohol dependence, uncomplicated
== END 2023-09-18 15:38 | disposition home or self-care (01) ==
PROVIDERS: PCP Family Medicine
DX: F10.20 Alcohol dependence, uncomplicated (principal)

== ENCOUNTER → 2023-09-18 14:51 | Outpatient (BNVA) | payer OTHER, SELFPAY | PROVIDERS: PCP Family Medicine | DX: F10.20 Alcohol dependence, uncomplicated (principal) | CPT/HCPCS: 96372; J2315 ==

== ENCOUNTER → 2023-09-25 10:11 | Outpatient (BNV) | payer OTHER, SELFPAY | PROVIDERS: PCP Family Medicine; Visit Provider Internal Medicine Medical Oncology | DX: D61.818 Other pancytopenia (principal) | CPT/HCPCS: 99213 ==

== ENCOUNTER 2023-10-16 09:51 | Outpatient (AMB) | payer OTHER, SELFPAY ==
--- NOTE | 2023-10-16 10:04 | AM.OFFVISNUR ---
Vital Signs 10/16/23 10:12 Respiration 22 H Pulse 101 H Pulse Source Pulse Oximeter Pulse Oximetry (%) 98 Oxygen Delivery Method Room Air Intake Visit Reasons: Vivitrol Inj Allergies No Known Allergies Allergy (Verified 09/25/23 10:18) Nursing Note Patient to clinic today for Vivitrol injection. Alert and oriented x4, denies any complications with previous injection, injection today given per orders in the RG. Will follow up in 4 weeks with RN. Patient acknowledged towards the end of the month , feeling the urge to drink again and feeling a little anxious . Patient stated she took her oral naltrexone when that happened and was able to obstain from drinking. I encouraged patient to call us if this happens again, she verbally agrees to understanding. Office Meds Vivitrol 380 mg intramuscular suspension,extended release Performing Provider: Shelli Mcmahan CNP Performing Location: [facility] Administered by: Preethi Hansen RN on 10/16/23 10:14 Dose Route Admin Location Dispensed Lot Number Expiration Date [facility] [employer] 380 mg IM RG 380 mg [id number] 01/30/26 [id number] weipass Assessment & Plan Assessment & Plan Orders: Orders AMB Naltrexone Injection Patient Supplied (NC) Today F10.20 - Alcohol dependence, uncomplicated Medications: New Vivitrol ER (naltrexone microspheres) 380 mg IM ONCE 1 ea 0RF NS F10.20 - Alcohol dependence, uncomplicated
[2023-10-16 10:12] VITALS: PULSE 101; RESP 22; O2SAT 98
== END 2023-10-16 10:13 | disposition home or self-care (01) ==
PROVIDERS: PCP Family Medicine
DX: F10.20 Alcohol dependence, uncomplicated (principal)

== ENCOUNTER → 2023-10-16 09:51 | Outpatient (BNVA) | payer OTHER, SELFPAY | PROVIDERS: PCP Family Medicine | DX: F10.20 Alcohol dependence, uncomplicated (principal); Z79.899 Other long term (current) drug therapy | CPT/HCPCS: 96372; J2315 ==

== ENCOUNTER 2023-11-02 09:39 | Outpatient (AMB) | payer OTHER, SELFPAY ==
--- NOTE | 2023-11-02 09:41 | A.OFFVIS_ITS ---
Vital Signs 11/02/23 09:48 Height 5 ft 3 in Weight 128 lb 6 oz BMI 22.7 BP 128/57 L Blood Pressure Location Lt brachial Position Sitting Pulse 80 Intake Visit Reasons: Acalculous cholecystitis Intake Note: Patient is seen in office for evaluation and treatment of cholecystitis. Pt c/o: was in ER due to low platelets and had some imaging done and that is when they told her about the gallbladder, she expresses no symptoms, denies n/v/d/c or abdomen cnadie CT: 08/30/23 Coal Cager Required: No Accompanied by: Self / Same As Patient Allergies No Known Allergies Allergy (Verified 11/02/23 09:48) Medication List - Last Reconciled 11/02/23 by Torito Jordan MD arnica 20% 1 ea topical TID calcium carbonate 1,200 mg PO DAILY folic acid 1 mg PO DAILY magnesium citrate 100 mg PO BEDTIME multivitamin 1 tab PO DAILY naltrexone microspheres ER (Vivitrol) 380 mg IM Q4W thiamine mononitrate (vit B1) 100 mg PO DAILY HPI Comments Details: 53-year-old female patient recently admitted for thrombocytopenia found to have a mildly elevated transaminase level. Ultrasound of the abdomen revealed e vidence of cirrhosis as well as possible thickened gallbladder wall with no gallstones. The possibility of acalculous cholecystitis was raised. Patient has a history of alcohol related cirrhosis, portal hypertension, and pancytopenia. She denies a history of abdominal pain especially in the right upper quadrant. She denies fatty food intolerance, nausea, vomiting, or diarrhea. PFSH Medical History Pancytopenia Easy bruising Thrombocytopenia Menopause Loss of balance Hypersplenism Cytopenia ASCUS with positive high risk HPV cervical Alcoholic liver disease Alcohol abuse Surgical History History of bilateral carpal tunnel release Family History Mother Cancer of rectum Father Hypertension Social History Household Members: Significant Other Housing: Apartment Alcohol intake: current Alcohol intake frequency: 3 or more drinks per day Alcohol type: beer and hard liquor Patient Tobacco Use Status: Never used Tobacco e-Cigarette/Vaping Use: Never Used Second Hand Smoke Exposure: Yes (Fiance vapes) [employer] service: No Current occupational status: employed 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/hazards: No Cognitive needs: No Hearing needs: No Vision needs: No Review of Systems Const All systems reviewed & are unremarkable except as noted in HPI and below Denies chills, Denies fever(s), Denies headache(s), Denies poor appetite and Denies weakness ENT Denies headache(s) Card Denies chest pain, Denies irregular heart rhythm, Denies palpitations and Denies dyspnea Resp Denies cough, Denies excessive phlegm production and Denies dyspnea GI Denies abdominal pain, Denies bloating, Denies change in bowel habits, Denies constipation, Denies heartburn, Denies diarrhea, Denies nausea and Denies vomiting Denies urinary frequency Musc Denies back pain, Denies muscle weakness and Denies numbness Skin/Breast Denies changing lesions and Denies unusual bruising Neuro Denies headache(s), Denies numbness, Denies paresthesias and Denies weakness Psych Denies anxiety and Denies depression Endo Denies palpitations Rey/Lymph Denies lymphadenopathy Physical Exam Const General: cooperative and no acute distress Nutritional Appearance: well nourished Orientation/consciousness: patient oriented x3 Limitations: no limitations HEENT Head: Yes normocephalic and Yes atraumatic Ears: hearing grossly normal bilaterally Resp Effort & Inspection: normal respiratory effort, no audible wheezes, no cough and no respiratory distress Cardio Jugular venous distension: no JVD GI Inspection: Yes normal to inspection Palpation (GI): Soft to palpation, nontender, no guarding and not rigid Percussion: Yes normal to percussion Auscultation: normal bowel sounds Rectal Exam - Female: deferred Skin Other: Warm, dry, no rash Neuro General: patient oriented x3 Extrem General: Yes no clubbing, cyanosis or edema Assessment & Plan Assessment & Plan (1) Acalculous cholecystitis: Code(s): K81.9 - Cholecystitis, unspecified Category: Medical Plan 53-year-old female patient with alcohol related cirrhosis found to have a thickened gallbladder wall by ultrasound with no gallstones. Patient denies a history of abdominal pain, nausea or vomiting. She denies a history of fatty food intolerance as well. Examination today revealed no tenderness in the right upper quadrant with a negative Arboleda sign. Patient does not have acute cholecystitis and does not require cholecystectomy. Ultrasound findings may be related to the underlying liver disease. We discussed the symptoms to be aware of for cholecystitis and she agrees to call should these symptoms develop. If her symptoms do develop a HIDA scan would be warranted. She should follow up as needed. Coding Level of Care Code New Pt Level 4 (19848) Diagnoses Acalculous cholecystitis K81.9
[2023-11-02 09:48] VITALS: BP 128/57; PULSE 80; BMI 22.7
== END 2023-11-02 09:51 | disposition home or self-care (01) ==
PROVIDERS: PCP Family Medicine; Visit Provider Surgery
DX: K81.9 Cholecystitis, unspecified (principal)
CPT/HCPCS: 99203

== ENCOUNTER → 2023-11-02 09:39 | Outpatient (BNVA) | payer OTHER, SELFPAY | PROVIDERS: PCP Family Medicine; Visit Provider Surgery | DX: K81.9 Cholecystitis, unspecified (principal) | CPT/HCPCS: 99202 ==

== ENCOUNTER 2023-11-23 08:38 | Outpatient (AMB) | payer OTHER, SELFPAY ==
--- NOTE | 2023-11-23 08:42 | MHC.PC.OV ---
Vital Signs 11/23/23 08:48 Height 5 ft 3 in Weight 122 lb 6 oz BMI 21.7 BP 110/60 Blood Pressure Location Lt brachial Position Sitting Respiration 12 Pulse 103 H Pulse Source Pulse Oximeter Temp 96.8 F Temp Source Tympanic Pulse Oximetry (%) 97 Oxygen Delivery Method Room Air Intake Visit Reasons: chronic prob review Intake Note: body rash off and on y6souron with no resolution pt states she just recovered from covid a5srwwm ago and is wondering if this just might be a reaction to covid and she states she has not change any soaps or shampoos Allergies No Known Allergies Allergy (Verified 11/23/23 08:46) Tobacco use date assessed: 09/12/23 Dental Screening Dental Screen Date: 09/12/23 HPI chronic prob review HPI Details Patient?with?a?history?of?alcoholic?cirrhosis?and?pancytopenia?presents?with?itchy?rash?on?torso She?has?tried?hydrocortisone?and?also?Benadryl?creams These?have?not?helped No?other?symptoms.??Patient?feels?well PFSH Medical History Pancytopenia Easy bruising Thrombocytopenia Menopause Loss of balance Hypersplenism Cytopenia ASCUS with positive high risk HPV cervical Alcoholic liver disease Alcohol abuse Surgical History History of bilateral carpal tunnel release Family History Mother Cancer of rectum Father Hypertension Social History Household Members: Significant Other Housing: Apartment Alcohol intake: current Alcohol intake frequency: 3 or more drinks per day Alcohol type: beer and hard liquor Patient Tobacco Use Status: Never used Tobacco e-Cigarette/Vaping Use: Never Used Second Hand Smoke Exposure: Yes (Fiance vapes) service: No Current occupational status: employed 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 Faustino, Song Fernandez and colleagues, with an educational marco a from [employer]. Review of Systems Const Denies chills, Denies fatigue, Denies fever(s), Denies headache(s) and Denies weakness ENT Denies dizziness and Denies headache(s) Card Denies dyspnea Resp Denies cough, Denies dyspnea, Denies wheezing and Denies other ( shortness of breath) Musc Denies numbness and Denies tingling Skin/Breast Reports rash Neuro Denies dizziness, Denies headache(s), Denies numbness, Denies tingling, Denies paresthesias and Denies weakness Psych Denies anxiety and Denies depression Endo Denies fatigue Aller/Immun Denies wheezing Physical exam (Primary Care) Vital Signs: Last Vital Signs Temp 96.8 F 11/23/23 08:48 Pulse 103 H 11/23/23 08:48 Resp 12 11/23/23 08:48 BP 110/60 11/23/23 08:48 Pulse Ox 97 11/23/23 08:48 Oxygen Delivery Method Room Air 11/23/23 08:48 BMI result Body Mass Index 21.7 Tobacco/Smoking Status: Tobacco use Status Tobacco use date assessed 09/12/23 11/23/23 08:43 Patient Tobacco Use Status Never used Tobacco 11/23/23 08:43 e-Cigarette/Vaping Use Never Used 11/23/23 08:43 Thrive Assessment: Date of Thrive Assessment Date Thrive assessed 08/31/23 11/23/23 08:43 Const General: no acute distress and well developed Nutritional Appearance: well nourished Orientation/consciousness: patient oriented x3 [facility] Head: Yes normocephalic and Yes atraumatic Eyes General: appearance normal, both eyes and all related structures Pupils: Equal, round and reactive pupils present EOM: EOMs intact bilaterally Resp Effort & Inspection: normal respiratory effort Skin Other: Rash?in?follicular?pattern?with?a?few?small?pustules. Neuro General: patient oriented x3 and gait normal Cranial nerves: Yes Equal, round and reactive pupils present Psych Affect: normal affect Assessment and Plan Assessment & Plan (1) Folliculitis: Code(s): L73.9 - Follicular disorder, unspecified Plan: Itchy?rash?in?follicular?pattern-Likely?bacterial?though?could?be?fungal She?has?already?tried?hydrocortisone?cream?and?also?Benadryl. Will?give?her?a?script?for?cephalexin?and?also?ketoconazole?shampoo Orders: Orders Comprehensive Met. Panel Today K70.30 - Alcoholic cirrhosis of liver without ascites Complete Blood Count Auto Diff Today D61.818 - Other pancytopenia, Z00.00 - Encounter for general adult medical examination without abnormal findings IRON PROFILE Today D61.818 - Other pancytopenia Vitamin B12 and Folate Today D61.818 - Other pancytopenia, E53.8 - Deficiency of other specified B group vitamins Medications: New cephalexin 500 mg PO Q12H 10 days 20 caps 0RF ketoconazole 2% 1 appl topical 2XW 14 days 120 mL 0RF Coding Level of Care Code New Pt Level 3 (08498) Diagnoses Folliculitis L73.9
[2023-11-23 08:48] VITALS: BP 110/60; PULSE 103; RESP 12; TEMP 36; O2SAT 97; BMI 21.7
== END 2023-11-23 09:34 | disposition home or self-care (01) ==
PROVIDERS: PCP Family Medicine; Visit Provider Family Medicine
DX: L73.9 Follicular disorder, unspecified (principal)
CPT/HCPCS: 99203

== ENCOUNTER 2023-11-26 15:30 | Outpatient (AMB) | payer OTHER, SELFPAY ==
--- NOTE | 2023-11-26 15:38 | A.OFFVISCC_ITS ---
Intake Visit Reasons: MAT Allergies No Known Allergies Allergy (Verified 11/23/23 08:46) HPI HPI MAT: Details: Patient presents for AUD treatment follow up Currently prescribed Naltrexone Has a quality assurance coach and therapist Drinking 3 beers daily ---cut down from 6-8 beers Asking if her mother can join visit as she has some questions mother asking about how to better support patient PFS Medical History Pancytopenia Easy bruising Thrombocytopenia Menopause Loss of balance Hypersplenism Cytopenia ASCUS with positive high risk HPV cervical Alcoholic liver disease Alcohol abuse Surgical History History of bilateral carpal tunnel release Family History Mother Cancer of rectum Father Hypertension Social History Household Members: Significant Other Housing: Apartment Alcohol intake: current Alcohol intake frequency: 3 or more drinks per day Alcohol type: beer and hard liquor Patient Tobacco Use Status: Never used Tobacco e-Cigarette/Vaping Use: Never Used Second Hand Smoke Exposure: Yes (Fiance vapes) service: No Current occupational status: employed 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 General: cooperative and healthy appearing Assessment & Plan Assessment & Plan (1) Alcohol use disorder, severe, dependence: Code(s): F10.20 - Alcohol dependence, uncomplicated Category: Medical Plan: * risk reduction discussion * naltrexone refilled * follow up as scheduled Medications: New naltrexone 50 mg PO DAILY 90 tabs 0RF
== END 2023-11-26 16:00 | disposition home or self-care (01) ==
PROVIDERS: PCP Family Medicine; Visit Provider Nurse Practitioner Psychiatric/Mental Health
DX: F10.20 Alcohol dependence, uncomplicated (principal)
CPT/HCPCS: 99214

== ENCOUNTER → 2023-11-26 15:30 | Outpatient (BNVA) | payer OTHER, SELFPAY | PROVIDERS: PCP Family Medicine; Visit Provider Nurse Practitioner Psychiatric/Mental Health | DX: F10.20 Alcohol dependence, uncomplicated (principal); Z79.899 Other long term (current) drug therapy | CPT/HCPCS: 99212 ==

== ENCOUNTER 2023-12-07 11:55 | Outpatient (AMB) | payer OTHER, SELFPAY ==
--- OUTSIDE RECORDS SUMMARY | 2023-12-07 11:56 | XMS_ITS | Continuity of Care Document ---
Author Organization [facility] Address [address] [place] [address]- Care Team Providers Care Router Setter Name Role Phone Will Isbell MD Primary Care Physician [phone] Encounter [facility] Date(s): 03/01/20 - 03/31/20 [facility] [address] [place] [address]- Attending Physician: Milan Orellana Admitting Physician: Milan Orellana Referring Physician: AdmtrMilan Allergies, Adverse Reactions, Alerts Substance Reaction Severity Status Pollen Persistent Moderate Active Medications Ibuprofen Refills 0, Maintenance, 04/28/19 10:07:00 EST Start Date: 04/28/19 Status: Ordered Melatonin = 10 mg, By Mouth, Daily at bedtime, 0 Refills, Maintenance, 03/31/19 16:52:00 EST Start Date: 03/31/19 Status: Ordered Multivitamin 1 tab, By Mouth, Daily, 0 Refills, Maintenance, 07/10/18 0:42:56 EDT Start Date: 07/10/18 Status: Ordered Zithromax 250 mg oral tablet 1 pack/packet, By Mouth, Once, # 6 tablet, 0 Refills, Maintenance, 05/26/19 13:07:00 EST, Tablet Start Date: 05/26/19 Stop Date: 05/31/19 Status: Ordered Problem List Condition Effective Dates Status Health Status Inform ant Alcoholic liver disease(Confirmed) 02/20/17 Active ASCUS with positive high ris k HPV cervical(Confirmed) Active Cytopenia(Confirmed) Active Hypersplenism(Confirmed) Active Loss of balance(Confirmed) Active Menopause(Confirmed) Active Social History Social History Type Response Smoking Status Never (less than 100 in lifetime) entered on: 07/09/18 Sex
--- OUTSIDE RECORDS SUMMARY | 2023-12-07 11:56 | XMS_ITS | Continuity of Care Document ---
Author Organization [facility] ter Address [address] [place] [id number]- Care Team Providers Care Training And Documentation Specialist Name Role Phone Will Isbell MD Primary Care Physician Encounter [facility] Date(s): 06/26/21 - 06/29/[address] [id number] Discharge Disposition: A-D/C Home Attending Physician: Bhavesh Olmstead DO Admitting Physician: Javi Zepeda MD Referring Physician: Not on Staff, Referring MD Allergies, Adverse Reactions, Alerts Substance Reaction Severity Status Pollen Persistent Moderate Active Immunizations Given and Recorded Vaccine Date Status Refusal Reason SARS-CoV-2 (COVID-19) mRNA-1273 vaccine 09/29/20 R ecorded SARS-CoV-2 (COVID-19) mRNA-1273 vaccine 09/01/20 R ecorded tetanus/diphtheria/pertussis, acel(Tdap) 09/02/20 Given influenza virus vaccine, inactivated 02/24/20 Kulwant rded influenza virus vaccine, inactivated 01/14/19 Kulwant rded pneumococcal 23-valent vaccine 08/29/17 Recorded Medications acamprosate 333 mg oral delayed release tablet 2 tablet = 666 mg, By Mouth, 2 times a day, # 120 tablet, 0 Refills, Maintenance, 06/29/21 7:26:00 EDT, CR Tablet, [facility], Partial fill upon patient request if the prescription is for a schedule II opioid drug., 160.02, cm, 06/27/21... Start Date: 06/29/21 Stop Date: 07/29/21 Status: Ordered folic acid 1 mg oral tablet 1 mg, 1, tablet, By Mouth, Daily, # 60 tablet, Refills 0, Tot. Refills 0, Maintenance, 06/29/21 7:27:00 EDT, Route to Pharmacy Electronically, [facility], Partial fill upon patient request if the prescription is for a schedule II opioid... Start Date: 06/29/21 Stop Date: 08/28/21 Status: Ordered Multiple Vitamins with Minerals and Essential Fatty Acids oral capsule 1 tablet, By Mouth, Daily, # 30 tablet, 0 Refills, Maintenance, 06/29/21 7:28:00 EDT, Capsule, [facility], Partial fill upon patient request if the prescription is for a schedule II opioid drug., 1 tablet By Mouth Daily,x30 days, 160.02,... Start Date: 06/29/21 Stop Date: 07/29/21 Status: Ordered thiamine 100 mg oral tablet 100 mg, 1, tablet, By Mouth, Daily, for 60 days, # 60 tablet, Refills 0, Tot. Refills 0, Acute 08/28/21 7:28:00 EDT, 06/29/21 7:28:00 EDT, Route to Pharmacy Electronically, [facility], Partial fill upon patient request if the prescriptio... Start Date: 06/29/21 Stop Date: 08/28/21 Status: Ordered Problem List Condition Effective Dates Status Health Status Inform ant Alcoholic liver disease(Confirmed) 02/20/17 Active ASCUS with positive high ris k HPV cervical(Confirmed) Active Cytopenia(Confirmed) Active Hypersplenism(Confirmed) Active Loss of balance(Confirmed) Active Menopause(Confirmed) Active Vital Signs Most recent to oldest [Reference Range]: 1 2 3 Height 160.02 cm (06/27/21 2:22 PM) Weight 55.4 kg (06/27/21 2:22 PM) Oxygen Saturation [94-100 %] 99 % (06/29/21 7:00 AM) 98 % (06/28/21 9:00 PM) 99 % (06/28/21 3:23 PM) Pulse Rate [55-90 bpm] 99 bpm *H* (06/29/21 7:00 AM) 97 bpm *H* (06/28/21 10:09 PM) 97 bpm *H* (06/28/21 9:00 PM) Body Mass Index [18.5-24.99] 21.64 (06/27/21 2:22 PM) Blood Pressure [90-138/55-84 mm Hg] 103/74mm Hg (06/29/21 7:00 AM) 123/72mm Hg (06/28/21 10:09 PM) 123/72mm Hg (06/28/21 9:00 PM) Respiratory Rate [16-30 br/min] 18 br/min (06/29/21 7:00 AM) 18 br/min (06/28/21 10:09 PM) 18 br/min (06/28/21 9:00 PM) Temperature [96.8-100.4 DegF] 97.9 DegF (06/29/21 7:00 AM) 98.7 DegF (06/28/21 9:00 PM) 98.2 DegF (06/28/21 3:23 PM) Mode of Delivery (Oxygen) Room air (06/29/21 7:00 AM) Room air (06/28/21 9:00 PM) Room air (06/28/21 3:23 PM) Blood pressure sites Arm, left (06/29/21 7:00 AM) Arm, left (06/28/21 9:00 PM) Arm, left (06/27/21 9:00 PM) Temperature Route Oral (06/29/21 7:00 AM) Oral (06/28/21 9:00 PM) Oral (06/28/21 3:23 PM) Dry Weight 55.4 kg (06/27/21 2:22 PM) Weight Obtained Via Bed scale (06/27/21 2:22 PM) Dry Weight Obtained Via Bed scale (06/27/21 2:22 PM) Social History Social History Type Response Smoking Status Never (less than 100 in lifetime) entered on: 06/26/21 Sex
--- OUTSIDE RECORDS SUMMARY | 2023-12-07 11:56 | XMS_ITS | Continuity of Care Document ---
Author Organization [facility] Address [address] [place] [address]- Care Team Providers Care Yarn Dumper Name Role Phone Carlos ARSHAD, Ailyn Primary Care Physician Encounter [facility] Date(s): 11/03/21 - 12/03/[address] [id number] Allergies, Adverse Reactions, Alerts Substance Reaction Severity Status Pollen Persistent Moderate Active Immunizations Given and Recorded Vaccine Date Status Refusal Reason SARS-CoV-2 (COVID-19) mRNA BNT-162b2 vac 04/05/21 Recorded Influenza Virus Vaccine (oldterm) 1 01/27/21 Recor ded Influenza Virus Vaccine (oldterm) 2 02/24/20 Recor ded Influenza Virus Vaccine (oldterm) 3 01/14/19 Recor ded influenza virus vaccine, inactivated 01/27/21 Kulwant rded influenza virus vaccine, inactivated 02/24/20 Kulwant rded influenza virus vaccine, inactivated 01/14/19 Kulwant rded SARS-CoV-2 mRNA ([id number]) vax 4 09/29/20 Recorded SARS-CoV-2 mRNA ([id number]) vax 5 09/01/20 Recorded SARS-CoV-2 (COVID-19) mRNA-1273 vaccine 09/29/20 R ecorded SARS-CoV-2 (COVID-19) mRNA-1273 vaccine 09/01/20 R ecorded tetanus/diphtheria/pertussis, acel(Tdap) 09/02/20 Given tetanus/diphtheria/pertussis, acel(Tdap) 6 09/02/20 Recorded pneumococcal 13-valent vaccine 7 08/29/17 Recorded pneumococcal 23-valent vaccine 08/29/17 Recorded 1Result Comment: Vending Attendant: [employer] 2Result Comment: Vending Attendant: [employer] 3Result Comment: Vending Attendant: [employer] 4Result Comment: Vending Attendant: [employer] 5Result Comment: Vending Attendant: [employer] 6Result Comment: Vending Attendant: [employer] 7Result Comment: Vending Attendant: [employer] Medications calcium (as carbonate and lactate)-vitamin D 200 mg-250 intl units oral tablet, chewable 2 tablet, By Mouth, 2 times a day, 0 Refills, Maintenance, 11/27/21 6:18:00 EDT, Partial fill upon patient request if the prescription is for a schedule II opioid drug. Start Date: 11/27/21 Status: Ordered Multiple Vitamins with Minerals and Essential Fatty Acids oral capsule 1 tablet, By Mouth, Daily, # 90 tablet, 3 Refills, Maintenance, 08/04/21 10:13:00 EDT, Capsule, [id number], Partial fill upon patient request if the prescription is for a schedule II opioid drug., 1 tablet By Mouth Daily, 160, cm, 08/04/21 9:5... Start Date: 08/04/21 Status: Ordered Sutab oral tablet See Instructions, Complete as per split prep instructions, # 1 kit, 0 Refills, Maintenance, 10/26/21 12:11:00 EDT, [id number], Partial fill upon patient request if the prescription is for a schedule II opioid drug., Complete as per split prep... Start Date: 10/26/21 Status: Ordered triamcinolone 0.025% topical cream Topically, 3 times a day, 0 Refills, Maintenance, 11/18/21 9:44:00 EDT, Partial fill upon patient request if the prescription is for a schedule II opioid drug. Start Date: 11/18/21 Status: Ordered Problem List Condition Effective Dates Status Health Status Inform ant Alcohol abuse(Confirmed) 02/13/21 Active Alcoholic liver disease(Confirmed) 02/20/17 Active ASCUS with positive high ris k HPV cervical(Confirmed) Active Cytopenia(Confirmed) Active Hypersplenism(Confirmed) Active Loss of balance(Confirmed) Active Leukopenia(Confirmed) Active Menopause(Confirmed) Active Thrombocytopenia(Confirmed) Active Social History Social History Type Response Smoking Status Never (less than 100 in lifetime) entered on: 06/26/21 Sex Care Team Personnel Name: Ailyn Gonzalez NP Address: [address] [place] [id number]
--- OUTSIDE RECORDS SUMMARY | 2023-12-07 11:56 | XMS_ITS | Continuity of Care Document ---
Author Organization [facility] ancer Care Address [address] [place] [address]- Care Team Providers Care Tool Lapper Hand Name Role Phone Carlos ARSHAD, Ailyn Primary Care Physician Encounter [facility] [place] Date(s): 07/21/21 - 08/20/[address] [id number] Allergies, Adverse Reactions, Alerts Substance Reaction Severity [...] vaccine, inactivated 01/14/19 Kulwant rded SARS-CoV-2 mRNA (juxmbdp-fgdy-hkmzx) vax 4 09/29/20 Recorded SARS-CoV-2 mRNA (esfrvgx-gmwy-sllzj) vax 5 09/01/20 Recorded SARS-CoV-2 (COVID-19) mRNA-1273 vaccine 09/29/20 R ecorded SARS-CoV-2 (COVID-19) mRNA-1273 vaccine 09/01/20 R ecorded tetanus/diphtheria/pertussis, acel(Tdap) 09/02/20 Given tetanus/diphtheria/pertussis, acel(Tdap) 6 09/02/20 Recorded pneumococcal 13-valent vaccine 7 08/29/17 Recorded pneumococcal 23-valent vaccine 5/30/18 Recorded 1Result Comment: Chicken Cleaner: Seafarer Adventurers [employer] 2Result Comment: Chicken Cleaner: Sanofi Pasteur 3Result Comment: Chicken Cleaner: Seqirus 4Result Comment: Chicken Cleaner: FileLifea Libra Entertainment[employer] Inc. 5Result Comment: Chicken Cleaner: Moderna Libra Entertainment, Inc. 6Result Comment: Chicken Cleaner: GlaxoSmithKline 7Result Comment: Chicken Cleaner: Merck and Co., Inc. Medications folic acid 1 mg oral tablet 1 mg, 1, tablet, By Mouth, Daily, # 60 tablet, Refills 0, Tot. Refills 0, Maintenance, 06/29/21 7:27:00 EDT, Route to Pharmacy Electronically, [facility], Partial fill upon patient request if the prescription is for a schedule II opioid... Start Date: 06/29/21 Stop Date: 08/28/21 Status: Ordered Multiple Vitamins with Minerals and Essential Fatty Acids oral capsule 1 tablet, By Mouth, Daily, # 90 tablet, 3 Refills, Maintenance, 08/04/21 10:13:00 EDT, Capsule, [facility]/pharmacy #[id number], Partial fill upon patient request if the prescription is for a schedule II opioid drug., 1 tablet By Mouth Daily, 160, cm, 08/04/21 9:5... Start Date: 08/04/21 Status: Ordered naltrexone 50 mg oral tablet 1 tablet = 50 mg, By Mouth, Daily, # 30 tablet, 0 Refills, Maintenance, 08/05/21 11:33:00 EDT, Tablet, [facility]/pharmacy #[id number], Partial fill upon patient request if the prescription is for a schedule II opioid drug., 160, cm, 08/04/21 9:53:00 EDT, Height,... Start Date: 08/05/21 Status: Ordered thiamine 100 mg oral tablet 100 mg, 1, tablet, By Mouth, Daily, for 60 days, # 60 tablet, Refills 0, Tot. Refills 0, Acute 08/28/21 7:28:00 EDT, 06/29/21 7:28:00 EDT, Route to Pharmacy Electronically, [facility] 3, Partial fill upon patient request if [...]
--- OUTSIDE RECORDS SUMMARY | 2023-12-07 11:56 | XMS_ITS | Continuity of Care Document ---
Author Organization [facility] an[facility] Address [address] [place] [address]- Care Team Providers Care Labor Contract Analyst Name Role Phone Carlos ARSHAD, Ailyn Primary Care Physician [place] [facility] [place]21 - 01/02/22 [facility] Care [address] [place] [address] Discharge Disposition: A-D/C Home Attending Physician: Tori CERNA(Hem/Onc), Christopher Bautista Admitting Physician: Reji Jones MD Referring Physician: Ailyn Gonzalez NP Allergies, Adverse Reactions, Alerts Substance Reaction Severity [...] vaccine, inactivated 01/14/19 Kulwant rded SARS-CoV-2 mRNA (epduxuw-okzb-iaxqu) vax 4 09/29/20 Recorded SARS-CoV-2 mRNA (bakllqs-qrio-ehkip) vax 5 09/01/20 Recorded SARS-CoV-2 (COVID-19) mRNA-1273 vaccine 09/29/20 R ecorded SARS-CoV-2 (COVID-19) mRNA-1273 vaccine 09/01/20 R ecorded tetanus/diphtheria/pertussis, acel(Tdap) 09/02/20 Given tetanus/diphtheria/pertussis, acel(Tdap) 6 09/02/20 Recorded pneumococcal 13-valent vaccine 7 08/29/17 Recorded pneumococcal 23-valent vaccine 08/29/17 Recorded 1Result Comment: Tank Setter: Kolo Technologies 2Result Comment: Tank Setter: Sanofi Pasteur 3Result Comment: Tank Setter: Seqirus 4Result Comment: Tank Setter: Osurv Inc. 5Result Comment: Tank Setter: Osurv Inc. 6Result Comment: Tank Setter: MediciNova 7Result Comment: Tank Setter: Merck and Co., Inc. Medications calcium (as [...] Date: 11/18/21 Status: Ordered Problem List Condition Confirmation Course Effective Dates Status H ealth Status Informant Alcohol abuse Confirmed 02/13/21 Active Alcoholic liver disease Confirmed 02/20/17 Active ASCUS with positive high risk HPV cervical Confirmed Active Cytopenia Confirmed Active Hypersplenism Confirmed Active Loss of balance Confirmed Active Leukopenia Confirmed Active Menopause Confirmed Active Thrombocytopenia Confirmed Active Vital Signs Most recent to oldest [Reference Range]: 1 Height 160.0 cm (11/02/21 9:04 AM) Weight 60.4 kg (11/02/21 9:04 AM) Pulse Rate [55-90 bpm] 92 bpm *H* (11/02/21 9:04 AM) Body Mass Index [18.5-24.99] 23.59 (11/02/21 9:04 AM) Blood Pressure [90-138/55-84 mm Hg] 136/ 83mm Hg (11/02/21 9:04 AM) Temperature [96.8-100.4 DegF] 97.5 DegF (11/02/21 9:04 AM) Blood pressure sites Arm, right (11/02/21 9:04 AM) Temperature Route Temporal (11/02/21 9:04 AM) Dry Weight 60.4 kg (11/02/21 9:04 AM) Weight Obtained Via Standing scale (11/02/21 9:04 AM) Dry Weight Obtained Via Standing scale (11/02/21 9:04 AM) Social History Social History Type Response Smoking Status Never (less than 100 in lifetime) entered on: 06/26/21 Sex Patient Care team information Personnel Name: Ailyn Gonzalez NP Address: Address: [address] [place] [id number]
--- OUTSIDE RECORDS SUMMARY | 2023-12-07 11:56 | XMS_ITS | Continuity of Care Document ---
Author Organization [facility] ancer Care Address [address] [place] [address]- Care Team Providers Care Collar Separator Name Role Phone Carlos ARSHAD, Ailyn Primary Care Physician Encounter [facility] [place] Date(s): 02/08/22 - 03/10/[address] [address] Allergies, Adverse Reactions, Alerts Substance Reaction Severity Status Pollen Persistent Moderate Active Immunizations Given and Recorded Vaccine Date Status Refusal Reason [id number] 12y+ bivalent booster vax 01/25/22 Recorded zoster vaccine, inactivated 01/20/22 Recorded influenza virus vaccine, inactivated 01/20/22 Kulwant rded influenza virus vaccine, inactivated 01/27/21 Kulwant rded influenza virus vaccine, inactivated 02/24/20 Kulwant rded influenza virus vaccine, inactivated 01/14/19 Kulwant rded SARS-CoV-2 (COVID-19) mRNA BNT-162b2 vac 04/05/21 Recorded Influenza Virus Vaccine (oldterm) 1 01/27/21 Recor ded Influenza Virus Vaccine (oldterm) 2 02/24/20 Recor ded Influenza Virus Vaccine (oldterm) 3 01/14/19 Recor ded SARS-CoV-2 mRNA (uzesytm-zgfq-axxve) vax 4 09/29/20 Recorded SARS-CoV-2 mRNA (ivphcck-jpxr-vrjlt) vax 5 09/01/20 Recorded SARS-CoV-2 (COVID-19) mRNA-1273 vaccine 09/29/20 R ecorded SARS-CoV-2 (COVID-19) mRNA-1273 vaccine 09/01/20 R ecorded tetanus/diphtheria/pertussis, acel(Tdap) 09/02/20 Given tetanus/diphtheria/pertussis, acel(Tdap) 6 09/02/20 Recorded pneumococcal 13-valent vaccine 7 08/29/17 Recorded pneumococcal 23-valent vaccine 08/29/17 Recorded 1Result Comment: Foundry Finisher: Rebelle 2Result Comment: Foundry Finisher: Sanofi Pasteur 3Result Comment: Foundry Finisher: Seqirus 4Result Comment: Foundry Finisher: Samba Ventures Inc. 5Result Comment: Foundry Finisher: Designqwest Platforms. 6Result Comment: Foundry Finisher: Denwa Communications 7Result Comment: Foundry Finisher: Merck and Co., Inc. Medications calcium (as [...] 3 Refills, Maintenance, 08/04/21 10:13:00 EDT, Capsule, [facility]/pharmacy #[id number], Partial fill upon patient request if the prescription is for a schedule II opioid drug., 1 tablet By Mouth Daily, 160, cm, 08/04/21 9:5... Start Date: 08/04/21 Status: Ordered NuLYTELY with Flavor Packs oral powder for reconstitution 240 mL, By Mouth, Every 10 minutes, half after 5pm evening before, finish remaing half 6 hours prior to procedure, # 1 each, 0 Refills, Maintenance, 02/02/22 14:28:00 EDT, REC Powder, [id number], Partial fill upon patient request if the prescr... Start Date: 02/02/22 Status: Ordered Sutab oral tablet See Instructions, Complete as per split prep instructions, # 1 kit, 0 Refills, Maintenance, 10/26/21 12:11:00 EDT, [id number], Partial fill upon patient request if the prescription is for a schedule II opioid drug., Complete as per split prep... Start Date: 10/26/21 Status: Ordered traZODone 50 mg oral tablet 50 mg, 1, tablet, By Mouth, Daily at bedtime, # 30 tablet, Refills 5, Tot. Refills 5, Maintenance, 01/30/22 6:21:00 EDT, Route to Pharmacy Electronically, [facility]/pharmacy #[id number], 160, cm, 01/04/22 10:37:00 EDT, Height, 61.5, kg, 11/27/21 6:03:00 EDT, Dry... Start Date: 01/30/22 Status: Ordered Valtrex 1 gm oral tablet 1 tablet = 1 Gm, By Mouth, 2 times a day, # 20 tablet, 0 Refills, Maintenance, 03/07/22 14:33:00 EST, Tablet, [facility]/pharmacy #[id number], Partial fill upon patient request if the prescription is for a schedule II opioid drug., 160, cm, 02/20/22 11:21:00 EST,... Start Date: 03/07/22 Stop Date: 03/17/22 Status: Ordered Problem List Condition Confirmation Course Effective Dates Status H ealth Status Informant Alcohol abuse Confirmed 02/13/21 Active Alcoholic liver disease Confirmed 02/20/17 Active ASCUS with positive high risk HPV cervical Confirmed Active Cytopenia Confirmed Active Hypersplenism Confirmed Active Loss of balance Confirmed Active Leukopenia Confirmed Active Menopause Confirmed Active Thrombocytopenia Confirmed Active Social History Social History Type Response Smoking Status Never (less than 100 in lifetime) entered on: 06/26/21 Sex Patient Care team information Care Team Personnel Name: Kanchan Bolivar RN Position: S RN Member Role: Primary Care Nurse Name: Ailyn Gonzalez NP Position: [facility] PCO Associate Professional Member Role: PCP Address: Address: [address] [place] [id number]- Name: Gardenia Chen RN Position: [facility] ED RN W/OE and Tasks Member Role: Primary Care Nurse Care Team Related Persons Name: YOLY MENENDEZ Address: [address] [address] Name: OUMAR PEGUERO Address: [address] [address]
--- OUTSIDE RECORDS SUMMARY | 2023-12-07 11:56 | XMS_ITS | Continuity of Care Document ---
Author Organization [facility] Un[facility] mary Address [address] [place] [address] [address] [place] [address]- Care Team Providers Care Computer Graphic Artist Name Role Phone Will Isbell MD Primary Care Physician Encounter [facility] Date(s): 04/24/19 - 05/04/19 [facility] [address] [place] [address]- [facility] Attending Physician: Milan Orellana Admitting Physician: AdmtrMilan Referring Physician: Admtr, ArLauren Allergies, Adverse Reactions, Alerts Substance Reaction Severity Status Pollen Persistent Moderate Active Medications Ibuprofen Refills 0, Maintenance, 04/28/19 10:07:00 EST Start Date: 04/28/19 Status: Ordered Melatonin = 10 mg, By Mouth, Daily at bedtime, 0 Refills, Maintenance, 03/31/19 16:52:00 EST Start Date: 03/31/19 Status: Ordered Multivitamin 1 tab, By Mouth, Daily, 0 Refills, Maintenance, 07/10/18 0:42:56 EDT Start Date: 07/10/18 Status: Ordered Problem List Condition Effective Dates Status Health Status Inform ant Alcoholic liver disease(Confirmed) 02/20/17 Active Cytopenia(Confirmed) Active Hypersplenism(Confirmed) Active Loss of balance(Confirmed) Active Menopause(Confirmed) Active Social History Social History Type Response Smoking Status Never (less than 100 in lifetime) entered on: 07/09/18 Sex
--- OUTSIDE RECORDS SUMMARY | 2023-12-07 11:56 | XMS_ITS | Continuity of Care Document ---
Author Organization [facility] Una [facility] Address [address] [place] [address] [address] [place] [address]- Care Team Providers Care Manager Of Corporate Name Role Phone Will Isbell MD Primary Care Physician [phone] [place] [facility] [place](s): 03/07/19 - 03/14/19 [facility] [address] [place] [address] Drive [address] [place] [address]- [facility] Attending Physician: Eric Russo MD Referring Physician: Will Isbell MD Allergies, Adverse Reactions, Alerts Substance Reaction Severity Status Pollen Persistent Moderate Active Medications folic acid 1 mg oral tablet See Instructions, # 30 tablet, Refills 2 Tot. Refills 2, TAKE 1 TABLET BY MOUTH EVERY DAY, [id number] Start Date: 10/28/18 Status: Ordered gabapentin 100 mg oral capsule See Instructions, TAKE 1 CAPSULE TWICE DAILY, # 60 capsule, Refills 1, Tot. Refills 1, Maintenance,12/23/18 17:59:19 EDT, Instructions Replace Required Details, Route to Pharmacy Electronically, [id number], [facility]/pharmacy #[id number] Start Date: 12/23/18 Status: Ordered MetroCream 0.75% topical cream 1 application, Topically, 2 times a day, # 45 Gm, 1 Refills, Maintenance, 09/04/18 11:13:56 EDT, Cream, 1 application Topically 2 times a day Start Date: 09/04/18 Status: Ordered Multivitamin 1 tab, By Mouth, Daily, 0 Refills, Maintenance, 07/10/18 0:42:56 EDT Start Date: 07/10/18 Status: Ordered Protonix 40 mg oral delayed release tablet ORAL, TABLET, DELAYED RELEASE, 3 Refill(s),, 0 Refills, 07/24/18 10:10:00 EDT Start Date: 07/24/18 Status: Ordered thiamine 100 mg oral tablet ORAL, TABLET, 3 Refill(s),, Refills 0, 07/24/18 10:10:00 EDT Start Date: 07/24/18 Status: Ordered Problem List Condition Effective Dates Status Health Status Inform ant Alcoholic liver disease(Confirmed) 02/20/17 Active Cytopenia(Confirmed) Active Hypersplenism(Confirmed) Active Loss of balance(Confirmed) Active Vital Signs Most recent to oldest [Reference Range]: 1 Height 160 cm (03/07/19 3:14 PM) Weight 56 kg (03/07/19 3:14 PM) Body Mass Index [18.5-24.99] 21.88 (03/07/19 3:14 PM) Social History Social History Type Response Smoking Status Never (less than 100 in lifetime) entered on: 07/09/18 Sex
--- OUTSIDE RECORDS SUMMARY | 2023-12-07 11:56 | XMS_ITS | Continuity of Care Document ---
Author Organization [facility] Un[facility] mary Address [address] [place] [address] [address] [place] [address]- Care Team Providers Care Elevated Motorman Name Role Phone Will Isbell MD Primary Care Physician Encounter [facility] [place] Date(s): 04/24/19 - 05/01/19 [facility] Surgery [address] [place] [address] Drive [address] [place] [address]- [facility] Attending Physician: Eric Russo MD [...] oldest [Reference Range]: 1 Height 160 cm (04/24/19 11:03 AM) Weight 59 kg (04/24/19 11:03 AM) Body Mass Index [18.5-24.99] 23.05 (04/24/19 11:03 AM) Social History Social History Type Response Smoking Status Never (less than 100 in lifetime) entered on: 07/09/18 Sex
--- OUTSIDE RECORDS SUMMARY | 2023-12-07 11:56 | XMS_ITS | Continuity of Care Document ---
Author Organization [facility] ter Address [address] [place] [address]- Care Team Providers Care Mechanical Cad Drafter Name Role Phone Akilah ECRNA, Will Jose Primary Care Physician [place] [facility] [place] - 05/16/[address] [address]- [facility] Attending Physician: Jazmine Coto NP Allergies, Adverse Reactions, Alerts Substance Reaction [...]
--- OUTSIDE RECORDS SUMMARY | 2023-12-07 11:56 | XMS_ITS | Continuity of Care Document ---
Author Organization [facility] ancer Care Address [address] [place] [address]- Care Team Providers Care Catechist Name Role Phone Carlos ARSHAD, Ailyn Primary Care Physician Encounter [facility] [place] Date(s): 02/03/22 - 03/05/22 [facility] Care [address] [place] [address] Attending Physician: Milan Orellana Admitting Physician: AdmtrMilan Referring Physician: Admtr, Ar8 Allergies, Adverse Reactions, Alerts Substance Reaction Severity Status Pollen Persistent Moderate Active Immunizations Given and Recorded Vaccine Date Status Refusal Reason [id number] 12y+ bivalent booster vax 01/25/22 Recorded zoster [...] (oldterm) 3 01/14/19 Recor ded SARS-CoV-2 mRNA (auoatlh-rqky-hkvsa) vax 4 09/29/20 Recorded SARS-CoV-2 mRNA (jkalmux-cspd-knntp) vax 5 09/01/20 Recorded SARS-CoV-2 (COVID-19) mRNA-1273 vaccine 09/29/20 R ecorded SARS-CoV-2 (COVID-19) mRNA-1273 vaccine 09/01/20 R ecorded tetanus/diphtheria/pertussis, acel(Tdap) 09/02/20 Given tetanus/diphtheria/pertussis, acel(Tdap) 6 09/02/20 Recorded pneumococcal 13-valent vaccine 7 08/29/17 Recorded pneumococcal 23-valent vaccine 08/29/17 Recorded 1Result Comment: Lacquer Pin Press Operator: iMOSPHERE 2Result Comment: Lacquer Pin Press Operator: Sanofi Pasteur 3Result Comment: Lacquer Pin Press Operator: Seqirus 4Result Comment: Lacquer Pin Press Operator: BlueSprig Inc. 5Result Comment: Lacquer Pin Press Operator: Rentlord. 6Result Comment: Lacquer Pin Press Operator: Rapid7 7Result Comment: Lacquer Pin Press Operator: Merck and Co., Inc. Medications calcium (as [...] 01/30/22 6:21:00 EDT, Route to Pharmacy Electronically, [facility]/pharmacy #[id number], 160, cm, 01/04/22 10:37:00 EDT, Height, 61.5, kg, 11/27/21 6:03:00 EDT, Dry... Start Date: 01/30/22 Status: Ordered Problem List Condition Confirmation Course [...] Team Personnel Name: Kanchan Bolivar RN Position: [facility] RN Member Role: Primary Care Nurse Name: Ailyn Gonzalez NP Position: [facility] PCO Associate Professional Member Role: PCP Address: Address: [address] [place] [address]- Name: Gardenia Chen RN Position: [facility] ED RN W/OE and Tasks Member Role: Primary Care Nurse Care Team Related Persons Name: YOLY MENENDEZ Address: home [address] [place] [address] Name: OUMAR PEGUERO Address: home [address], [place]
--- OUTSIDE RECORDS SUMMARY | 2023-12-07 11:56 | XMS_ITS | Continuity of Care Document ---
Author Organization [facility] ancer Care Address [address] [place] [address]- Care Team Providers Care Homicide Squad Commanding Officer Name Role Phone Carlos ARSHAD, Ailyn Primary Care Physician Encounter [facility] [place] Date(s): 07/28/21 - 08/27/[address] [address] Allergies, Adverse Reactions, Alerts Substance Reaction [...] vaccine, inactivated 01/14/19 Kulwant rded SARS-CoV-2 mRNA (qyyzpiy-yabt-vdzwn) vax 4 09/29/20 Recorded SARS-CoV-2 mRNA (yzimbky-cbib-fndvk) vax 5 09/01/20 Recorded SARS-CoV-2 (COVID-19) mRNA-1273 vaccine 09/29/20 R ecorded SARS-CoV-2 (COVID-19) mRNA-1273 vaccine 09/01/20 R ecorded tetanus/diphtheria/pertussis, acel(Tdap) 09/02/20 Given tetanus/diphtheria/pertussis, acel(Tdap) 6 09/02/20 Recorded pneumococcal 13-valent vaccine 7 08/29/17 Recorded pneumococcal 23-valent vaccine 08/29/17 Recorded 1Result Comment: Concert Pianist: ID [email or web address] 2Result Comment: Concert Pianist: Sanofi Pasteur 3Result Comment: Concert Pianist: Seqirus 4Result Comment: Concert Pianist: Buz[employer] Inc. 5Result Comment: Concert Pianist: Moderna MobSoc [employer], Inc. 6Result Comment: Concert Pianist: GlaxoSmithKline 7Result Comment: Concert Pianist: Merck and Co., Inc. Medications doxycycline hyclate 100 mg oral capsule 1 capsule = 100 mg, By Mouth, 2 times a day, for 10 days, # 20 capsule, 0 Refills, Acute 09/01/21 11:44:00 EDT, 08/22/21 11:44:00 EDT, Capsule, [facility]/pharmacy #[id number], Partial fill upon patient request if the prescription is for a schedule II opioid drug.... Start Date: 08/22/21 Stop Date: 09/01/21 Status: Ordered folic acid 1 mg oral tablet 1 mg, 1, tablet, By Mouth, Daily, # 60 tablet, Refills 0, Tot. Refills 0, Maintenance, 06/29/21 7:27:00 EDT, Route to Pharmacy Electronically, [facility], Partial fill upon patient request if the prescription is for a schedule II opioid... Start Date: 06/29/21 Stop Date: 08/28/21 Status: Ordered Multiple Vitamins with Minerals and Essential Fatty Acids oral capsule 1 tablet, By Mouth, Daily, # 90 tablet, 3 Refills, Maintenance, 08/04/21 10:13:00 EDT, Capsule, [facility]/pharmacy #[id number], Partial fill upon patient request if the prescription is for a schedule II opioid drug., 1 tablet By Mouth Daily, 160, cm, 08/04/21 9:5... Start Date: 08/04/21 Status: Ordered thiamine 100 mg oral tablet 100 mg, 1, tablet, By Mouth, Daily, for 60 days, # 60 tablet, Refills 0, Tot. Refills 0, Acute 08/28/21 7:28:00 EDT, 06/29/21 7:28:00 EDT, Route to Pharmacy Electronically, [facility], Partial fill upon patient request if the prescriptio... Start Date: 06/29/21 Stop Date: 08/28/21 Status: Ordered Problem List Condition Effective Dates Status Health Status Inform ant Alcohol abuse(Confirmed) 11/14/21 Active Alcoholic liver disease(Confirmed) 02/20/17 Active ASCUS with positive high ris k HPV cervical(Confirmed) Active Cytopenia(Confirmed) Active Hypersplenism(Confirmed) Active Loss of balance(Confirmed) Active Leukopenia(Confirmed) Active Menopause(Confirmed) Active Thrombocytopenia(Confirmed) Active Social History Social History Type Response Smoking Status Never (less than 100 in lifetime) entered on: 06/26/21 Sex
--- OUTSIDE RECORDS SUMMARY | 2023-12-07 11:56 | XMS_ITS | Continuity of Care Document ---
Author Organization [facility] ter Address [address] [place] [address]- Care Team Providers Care Svp Innovation Partnerships Name Role Phone Akilah CERNA, Will Jose Primary Care Physician [phone] [place] [facility] [place](s[place] 05/01/19 - 05/01/[address] [address]- [facility] Attending Physician: Christopher CERNA, Jose Carlos Allergies, Adverse Reactions, Alerts Substance Reaction Severity [...]
--- OUTSIDE RECORDS SUMMARY | 2023-12-07 11:56 | XMS_ITS | Continuity of Care Document ---
Author Organization [facility] ancer Care Address [address] [place] [address]- Care Team Providers Care Flute Grinder Name Role Phone Carlos ARSHAD, Ailyn Primary Care Physician [place] [facility] [place](s): 11/01/21 - 12/01/21 [facility] Care [address] [place] [id number] Attending Physician: Milan Orellana Admitting Physician: AdmtrMilan [...] vaccine, inactivated 01/14/19 Kulwant rded SARS-CoV-2 mRNA (lngtcnt-zcyl-wrnll) vax 4 09/29/20 Recorded SARS-CoV-2 mRNA (hnngzbj-souy-qnsqj) vax 5 09/01/20 Recorded SARS-CoV-2 (COVID-19) mRNA-1273 vaccine 09/29/20 R ecorded SARS-CoV-2 (COVID-19) mRNA-1273 vaccine 09/01/20 R ecorded tetanus/diphtheria/pertussis, acel(Tdap) 09/02/20 Given tetanus/diphtheria/pertussis, acel(Tdap) 6 09/02/20 Recorded pneumococcal 13-valent vaccine 7 08/29/17 Recorded pneumococcal 23-valent vaccine 08/29/17 Recorded 1Result Comment: Process Engineering Technician: Kylin Network 2Result Comment: Process Engineering Technician: Sanofi Pasteur 3Result Comment: Process Engineering Technician: Seqirus 4Result Comment: Process Engineering Technician: Belanit Inc. 5Result Comment: Process Engineering Technician: Expertcloud.dea Dianxin Inc. 6Result Comment: Process Engineering Technician: Tensilicaine 7Result Comment: Process Engineering Technician: Merck and Co., Inc. Medications calcium (as [...] Team Personnel Name: Ailyn Gonzalez NP Address: [address] [place] [address]
--- OUTSIDE RECORDS SUMMARY | 2023-12-07 11:56 | XMS_ITS | Continuity of Care Document ---
Author Organization [facility] ancer Care Address [address] [place] [address]- Care Team Providers Care Frog Or Oyster Farmworker Name Role Phone Carlos ARSHAD, Ailyn Primary Care Physician Encounter [facility] [place] [facility] Date(s): 07/28/21 - 08/27/[address] [id number] Allergies, Adverse Reactions, Alerts Substance Reaction Severity [...] vaccine, inactivated 01/14/19 Kulwant rded SARS-CoV-2 mRNA ([id number]) vax 4 09/29/20 Recorded SARS-CoV-2 mRNA ([id number]) vax 5 09/01/20 Recorded SARS-CoV-2 (COVID-19) mRNA-1273 vaccine 09/29/20 R ecorded SARS-CoV-2 (COVID-19) mRNA-1273 vaccine 09/01/20 R ecorded tetanus/diphtheria/pertussis, acel(Tdap) 09/02/20 Given tetanus/diphtheria/pertussis, acel(Tdap) 6 09/02/20 Recorded pneumococcal 13-valent vaccine 7 08/29/17 Recorded pneumococcal 23-valent vaccine 08/29/17 Recorded 1Result Comment: Golf Superintendent: [employer] 2Result Comment: Golf Superintendent: Sanofi Pasteur 3Result Comment: Golf Superintendent: [employer] 4Result Comment: Golf Superintendent: [employer] 5Result Comment: Golf Superintendent: [employer] 6Result Comment: Golf Superintendent: GlaxoSmithKline 7Result Comment: Golf Superintendent: Merck and [employer] Medications doxycycline hyclate 100 mg oral capsule 1 capsule = 100 mg, By Mouth, 2 times a day, for 10 days, # 20 capsule, 0 Refills, Acute 09/01/21 11:44:00 EDT, 08/22/21 11:44:00 EDT, Capsule, [facility]/pharmacy #[id number], Partial fill upon patient request if the prescription is for a schedule II opioid drug.... Start Date: 08/22/21 Stop Date: 09/01/21 Status: Ordered folic acid 1 mg oral tablet 1 mg, 1, tablet, By Mouth, Daily, # 60 tablet, Refills 0, Tot. Refills 0, Maintenance, 06/29/21 7:27:00 EDT, Route to Pharmacy Electronically, [facility], Partial fill upon patient request if the prescription is for a schedule II opioid... Start Date: 06/29/21 Stop Date: 08/28/21 Status: Ordered Multiple Vitamins with Minerals and Essential Fatty Acids oral capsule 1 tablet, By Mouth, Daily, # 90 tablet, 3 Refills, Maintenance, 08/04/21 10:13:00 EDT, Capsule, [facility]/pharmacy #[id number], Partial fill upon patient request [...] 06/29/21 7:28:00 EDT, Route to Pharmacy Electronically, [facility], Partial fill upon patient [...]
--- OUTSIDE RECORDS SUMMARY | 2023-12-07 11:56 | XMS_ITS | Continuity of Care Document ---
Author Organization [facility] ancer Care Address [address] [place] [address]- Care Team Providers Care Computer Systems Engineer Name Role Phone Carlos ARSHAD, Ailyn Primary Care Physician [place] [facility] [place] - 07/29/21 [facility] [address] [place] [id number] Attending Physician: Milan Orellana Admitting Physician: AdmMilan louise Referring Physician: AdmtrMilan Allergies, Adverse Reactions, Alerts [...] Refills, Maintenance, 06/29/21 7:26:00 EDT, CR Tablet, [facility], Partial fill upon patient request if the prescription is for a schedule II opioid drug., 160.02, cm, 06/27/21... Start Date: 06/29/21 Stop Date: 07/29/21 Status: Ordered folic acid 1 mg oral tablet 1 mg, 1, tablet, By Mouth, Daily, # 60 tablet, Refills 0, Tot. Refills 0, Maintenance, 06/29/21 7:27:00 EDT, Route to Pharmacy Electronically, [facility], Partial fill upon patient request if the prescription is for a schedule II opioid... Start Date: 06/29/21 Stop Date: 08/28/21 Status: Ordered Multiple Vitamins with Minerals and Essential Fatty Acids oral capsule 1 tablet, By Mouth, Daily, # 30 tablet, 0 Refills, Maintenance, 06/29/21 7:28:00 EDT, Capsule, [facility], Partial fill upon patient [...] 06/29/21 7:28:00 EDT, Route to Pharmacy Electronically, [facility], Partial fill upon patient [...]
--- OUTSIDE RECORDS SUMMARY | 2023-12-07 11:56 | XMS_ITS | Continuity of Care Document ---
Author Organization [facility] Address [address] [place] [address]- Care Team Providers Care Batterboard Setter Name Role Phone Carlos ARSHAD, Ailyn Primary Care Physician En[place] [facility] [place](s): 02/03/22 - 05/14/22 [facility] [address] [place] [id number] Discharge Disposition: A-D/C Home Attending Physician: Tori CERNA(Hem/Onc), Christopher Bautista Admitting Physician: Tori CERNA(Hem/Onc), Christopher Bautista Referring Physician: Ailyn Gonzalez NP Allergies, Adverse Reactions, Alerts Substance Reaction Severity Status Pollen Persistent Moderate Active Immunizations Given and Recorded Vaccine Date Status Refusal Reason [id number] 12y+ bivalent booster vax 01/25/22 Recorded zoster [...] (oldterm) 3 01/14/19 Recor ded SARS-CoV-2 mRNA (wztrygw-eayy-porxa) vax 4 09/29/20 Recorded SARS-CoV-2 mRNA (lylwylr-gpql-hyggm) vax 5 09/01/20 Recorded SARS-CoV-2 (COVID-19) mRNA-1273 vaccine 09/29/20 R ecorded SARS-CoV-2 (COVID-19) mRNA-1273 vaccine 09/01/20 R ecorded tetanus/diphtheria/pertussis, acel(Tdap) 09/02/20 Given tetanus/diphtheria/pertussis, acel(Tdap) 6 09/02/20 Recorded pneumococcal 13-valent vaccine 7 08/29/17 Recorded pneumococcal 23-valent vaccine 08/29/17 Recorded 1Result Comment: Denture Waxer: [employer] 2Result Comment: Denture Waxer: Sanofi Pasteur 3Result Comment: Denture Waxer: [employer] 4Result Comment: Denture Waxer: [employer] 5Result Comment: Denture Waxer: [employer]. 6Result Comment: Denture Waxer: [employer] 7Result Comment: Denture Waxer: [employer] Medications calcium (as carbonate [...] 01/30/22 6:21:00 EDT, Route to Pharmacy Electronically, [facility]/pharmacy #[id number], 160, cm, 01/04/22 10:37:00 EDT, Height, 61.5, kg, 11/27/21 6:03:00 EDT, Dry... Start Date: 01/30/22 Status: Ordered Valtrex 1 gm oral tablet 1 tablet = 1 Gm, By Mouth, 2 times a day, # 20 tablet, 0 Refills, Maintenance, 03/07/22 14:33:00 EST, Tablet, [facility]/pharmacy #[id number], Partial fill upon patient request [...] oldest [Reference Range]: 1 Height 160 cm (02/08/22 8:01 AM) Weight 59.3 kg (02/08/22 8:01 AM) Oxygen Saturation [94-100 %] 100 % (02/08/22 8:01 AM) Pulse Rate [55-90 bpm] 98 bpm *H* (02/08/22 8:01 AM) Body Mass Index [18.5-24.99 kg/m2] 23.16 kg/m2 (02/08/22 8:01 AM) Blood Pressure [90-138/55-84 mm Hg] 129/ 78mm Hg (02/08/22 8:01 AM) Temperature [96.8-100.4 DegF] 97.4 DegF (02/08/22 8:01 AM) Blood pressure sites Arm, left (02/08/22 8:01 AM) Temperature Route Oral (02/08/22 8:01 AM) Dry Weight 59.3 kg (02/08/22 8:01 AM) Weight Obtained Via Standing scale (02/08/22 8:01 AM) Dry Weight Obtained Via Pediatric scale (02/08/22 8:01 AM) Social History Social History Type Response Smoking Status Never (less than 100 in lifetime) entered on: 06/26/21 Sex Cytogenetics study * Tori CERNA(Hem/Onc)Christopher: ENDORSE Event Display: Cytogenetics Report Authored Date: Patient Name: SUPRIYA BOJORQUEZ Lab Accesssion #: [id number] Patient : 1970 (Age: 51) Collection Date: 02/08/2022 Accession Date: 02/08/2022 Sign Out Date: 03/13/2022 Tissue Source: 1: FLT3 ITD AND TKD MUTATION ANALYSIS 2: CEBPA Final Diagnosis: Bone marrow ([id number]) from this patient was sent to [facility] for FLT3 (ITD and TKD) analysis, CEBPA mutation analysis. A summary of reported results is as follows: TEST: FLT3 ITD and TKD Mutation Analysis, CEBPA Mutation Analysis RESULTS: FLT3 Internal Tandem Duplication (ITD): Not Detected FLT3 TKD Mutation: Not Detected CEBPA Mutations: Negative COMMENT: The FLT3 Internal Tandem Duplication (ITD) was not detected. The FLT3 Tyrosine Kinase Domain (TKD) mutation was not detected. Results should be interpreted in conjunction with all other clinical, molecular, and cytogenetic findings for the most accurate interpretation. No CEBPA mutation was identified in the provided specimen of this individual. Results should be interpreted in conjunction with clinical and other laboratory findings for the most accurate interpretation. If a copy of the [facility] report is needed, contact [facility] at . Testing performed at [facility], [address] [place] [address] Primary Pathologist: Noel Massey M.D. Phone #: [phone], On-Call Pathologist: [id number] * Tori CERNA(Hem/Onc)Christopher: ENDORSE Event Display: Cytogenetics Report Authored Date: Patient Name: SUPRIYA BOJORQUEZ Lab Accesssion #: [id number] Patient : 1970 (Age: 51) Collection Date: 02/08/2022 Accession Date: 02/08/2022 Sign Out Date: 02/17/2022 Tissue Source: 1: CHROMOSOME ANALYSIS BONE MARROW Final Diagnosis: TEST: Chromosome analysis (karyotype, GTW banding), Hematologic, BM ([id number]) performed at [facility] Result: NORMAL Nomenclature: 46,XX[20] Interpretation: Normal female chromosome complement observed in all cells examined. There was no evidence of a chromosome abnormality within the limits of the technology utilized. Method: Culture without mitogens. Cells Analyzed: 20 Cells Counted: 20 Cells Karyotyped: 2 Band Level: 400 Note: If a copy of the [facility] report is needed, contact [facility] at . Testing performed at [facility], [facility], [address] [place] [address] Report Date: 02/15/2022 Primary Pathologist: Noel Massey M.D. Phone #: [phone], On-Call Pathologist: [id number] Note * Tori CERNA(Hem/Onc), Christopher Bautista: ENDORSE Event Display: Molecular Biology Authored Date: [id number] Patient Name: SUPRIAY BOJORQUEZ Lab Accesssion #: [id number] Patient : 1970 (Age: 51) Collection Date: 02/08/2022 Accession Date: 02/08/2022 Sign Out Date: 02/14/2022 Tissue Source: 1: Bone Marrow for DNA extraction 2: NGS [facility] Myeloid Panel Final Diagnosis: SOURCE: Bone Marrow ([id number]) TEST PERFORMED: [facility] Myeloid NGS Panel TEST INCLUDES targeted regions of the following genes: ABL1, ASXL1, ATRX, BCOR, BCORL1, BRAF, CALR,CBL, CBLB, CBLC, CDKN2A, CEBPA, CSF3R, CUX1, DNMT3A, ETV6/TEL, EZH2, FBXW7, FLT3, GATA1, GATA2, GNAS, HRAS, IDH1, IDH2, IKZF1, JAK2, JAK3, KDM6A, KIT, KRAS, MLL, MPL, MYD88, NOTCH1, NPM1, NRAS, PDGFRA, PHF6, PTEN, PTPN11, RAD21, RUNX1, SETBP1, SF3B1, SMC1A, SMC3, SRSF2, STAG2, TET2, TP53, U2AF1, WT1, and ZRSR2. FLT3 ITD and certain regions of the CEBPA gene are subject to suboptimal coverage withthis assay and will be assessed and reported separately, if requested. NO PATHOGENIC VARIANTS DETECTED NO VARIANTS OF UNCERTAIN SIGNIFICANCE DETECTED * A Negative result does not preclude the presence of a variant outside of the targeted regions because results depend on percent mutant sequences, adequate sample integrity, absence of inhibitors,and sufficient DNA to be detected. FLT3 and CEBPA testing were performed by [facility] and are reported separately ([id number]) Note: The following nucleotide regions did not meet the quality requirements of the assay in this specimen. Variants within these regions could not be detected with optimal sensitivity. BCOR chrX:[id number] CDKN2A chr9:[id number] CUX1 chr7:[id number], [id number], [id number] DNMT3A chr2:[id number] GATA2 exon 5 chr3:[id number] HRAS exon 2 chr11:219327-122370, exon 3 chr11:499953-739705 JAK3 exon 13 chr19: [id number] SMC3 chr10:[id number] STAG2 chrX:[id number] TET2 exon 9 chr4:[id number] ZRSR2 chrX:[id number] Methods: Highly purified genomic DNA was extracted from bone marrow or peripheral blood using the BioEx[employer] Specialty Proteins 96. Next Generation Sequencing was performed utilizing the Illumina [employer] Myeloid Sequencing Panel to detect the presence of a variant within the targeted regions of the following genes: ABL1 (exons 4-6), ASXL1 (exon 12), ATRX (exons 8-10, 17-31), BCOR, BCORL1, BRAF (exon 15), CALR(exon 9), CBL (exons 8, 9), CBLB (exons 9, 10), CBLC (exons 9, 10), CDKN2A, CEBPA, CSF3R (exons 14-17), CUX1, DNMT3A, ETV6/TEL, EZH2, FBXW7 (exons 9-11), FLT3 (exons, 14, 15, 20), GATA1 (exon 2), GATA2 (exons 2-6), GNAS (exons 8, 9) , HRAS (exons 2, 3), IDH1 (exon 4), IDH2 (exon 4), IKZF1, JAK2 (exons 12, 14), JAK3 (exon 13), KDM6A, KIT (exons 2, 8-11, 13, 17), KRAS (exons 2, 3), MLL (exons 5-8),MPL (exon 10), MYD88 (exons 3-5), NOTCH1 (exons 26-28, 34), NPM1 (exon 12), NRAS (exons 2,3), PDGFRA (exons 12, 14, 18), PHF6, PTEN (exons 5, 7), PTPN11 (exons 3, 13), RAD21, RUNX1, SETBP1 (exon 4, partial), SF3B1 (exons 13- 16), SMC1A (exons 2, 11, 16, 17), SMC3 (exons 10, 13, 19, 23, 25, 28), SRSF2 (exon 1), STAG2, TET2 (exons 3-11), TP53 (exons 2-11), U2AF1 (exons 2, 6), WT1 (exons 7, 9), and ZRSR2. FLT3 ITD and certain regions of the CEBPA gene are subject to suboptimal coverage with this assay and will be assessed and reported separately, if requested. The [employer] Pipeline v1.02 is aligned tothe reference genome UCSC Hg19 and includes the use of [employer] for variant analysisand interpretation. Interpretations provided are based on a diagnosis of myeloid neoplasm, unless adiagnosis of AML is provided. For more information regarding test performance, please contact the laboratory. This assay was determined to detect variants down to 5% allele frequency at a minimum read depth [id number]. Known polymorphisms and germline mutations will not be reported. While DNA testing is very accurate, rare diagnostic errors due to various pre- and post-analytical variables do occur. Findings in this report should be interpreted in the context of clinical findings and therapeutic therapy selections based on the independent medical judgement of the treating physician. This test was developed, and its performance characteristics determined by the Molecular Genetics Laboratory at the [facility]. It has not been cleared or approved by the U.S. Food and Drug Administration (FDA). The FDA has determined that such clearance or approval is not necessary. This test is used for clinical purposes. It should not be regarded as investigational or for research. This laboratory is certified under the Clinical Laboratory Improvement Amendments of 1988 ( CLIA ) as qualified to perform high-complexity clinical laboratory testing. Tier system: Tier I-A- Biomarker predicts response or resistance to an FDA or CAIO approved therapy, according todrug label or professional guidelines for this diagnosis. Biomarker included in professional guidelines is prognostic or diagnostic for this diagnosis. Tier I-B- Biomarker predicts response or resistance to a therapy for this diagnosis based on well-powered studies. Biomarker is prognostic or diagnostic for this diagnosis based on well-powered studies. Tier II-C- Biomarker is associated with response or resistance to an FDA or CAIO approved therapy, according to drug label or professional guidelines but only for different diagnosis. Biomarker is an inclusion criterion for an active clinical trial. Biomarker is prognostic or diagnostic based on multiple small studies Tier II-D- Biomarker shows plausible response or resistance based on case or preclinical studies. Biomarker may assist in disease diagnosis or prognosis based on small studies. Tier III (VUS)- Biomarker has uncertain clinical significance. Tier IV- Benign or likely benign variants (not included in the report). References: Forest et al. Standards and Guidelines for Validating Next-Generation Sequencing Bioinformatics Pipelines. A Joint Recommendation of the Association for Molecular Pathology and the College of [place] Pathologists. JMD 2017, 20(1):4-27. Awa et al. Standards and Guidelines for the Interpretation and Reporting of Sequence Variants in Cancer. A Joint Consensus Recommendation of the Association for Molecular Pathology, [place] Society of Clinical Oncology, and College of [place] Pathologists. JMD 2017, 19(1):p4-23.. Tyson et al. Guidelines for Validation of Next-Generation Sequencing- Based Oncology Panels. A Joint Consensus Recommendation of the Association for Molecular Pathology and the College of [place] Pathologists. JMD 2018, 19(3):341-365. Cliff SPEAR, Naomi A, Isabelle R, Sudhakar J, Alvin MJ, Rose Carranza MM, Milan CD, Rohini M, Jeny JW (2016) The 2016 revision to the World Health Organization classification of myeloid neoplasmsand acute leukemia. Blood. 2016 August 18;127(20):2391-405. Epub 2015Jul 11 (PMID: 44807051) Isrrael Pacheco, Kirill Gil, Hossein Flowers, Ravi Jose, Rosa Elena Goodrich, Sapphire Bautista, Jerardo Turner, Roseanne BOYLE, Dav Salinas, Scot HUYNH (2011) Clinical effect of point mutations in myelodysplastic syndromes.N Engl J Med. 2010Sep 29;364(26):2496-506 (PMID: 69103957) Isrrael Pacheco, Carolina BA, Kirill Gil, Rey MCGOVERN, Hossein Flowers, Jerardo Turner, Sapphire Bautista, Roseanne BOYLE, Dav Salinas, Rosa Elena Goodrich, Scot HUYNH (2012) Validation of a prognostic model and the impact of mutations in patients with lower-risk myelodysplastic syndromes. J Clin Oncol. 2011Dec 20;30(27):3376-82. Epub 2011Nov 05 (PMID: 40602819) Elieser Flood, Rita??hner K, D??hner H (2017) Genomics of Acute Myeloid Leukemia Diagnosis and Pathways.J Clin Oncol 2017 Jun 19;35(9):934-946 (PMID: 58263095) Kiesha F, Yina O, Lathai-Meg V, Josefina A, Romanuccia N, Clarke-Antelmo C, Anusha Bustamante V, Couronn?? L, Franco L, Adrisshyams V, Kwadwo- Tito A, Soy B, Faith-Mildred O, Emily-Eric A, Natasha A, Norma F, Pr??jason T, de Bren S, Александр N, Bert MA, Tom NC, Allegra C, Kelley D, Pan BATES, Serjio Tan, e Rc libby My??yahir (2012) Mutations affecting mRNA splicing define distinct clinical phenotypes and correlate with patient outcome in myelodysplastic syndromes. Blood. 2012 Jul 05;119(14):3211-8. Ep2011May 19 (PMID: 79326364) D??hner H, Schuyler E, Jose D, Amadorsinan S, Appelbaum FR, Delon T, Forest H, Scot BL, Viri P, Juan RA, Roseanne RL, Lo-Mary F, Naoe T, Luz D, Jah GJ, Александр M, Luciana J, Елена MS, Jalil HF, Mikel AH, L??alanis B, Milan CD (2016) Diagnosis and management of AML in adults: 2017 ELN recommendations from an international expert panel. Blood. 2017 Apr 27;129(4):424-447. Epub 2015Feb 27 (PMID: 55901483) Genesis T, Nagata Y, Grossmann V, Okuno Y, Janeth U, Nagbenito G, Adalid S, Sanada M, Thomas A, Alpermann T, Dalila K, Haimer A, Nadarajah N, Shiraishi Y, Shiozawa Y, Chiba K, David H, Heber HP, Gilmore HU, Traci M, Aburatani H, Kohlmmanny A, Miyano S, Genesis C, Barton W, Ogawa S (2013) Landscape of genetic lesions in 944 patients with myelodysplastic syndromes. Leukemia. 2013;28(2):241-7. Epub 2012Feb 12 (PMID: 96530100) Nusrat MO, Mickey , Ugo R, Liam J, Caesar E, Michael J (2018) Genetic Landscape of Acute Myeloid Leukemia Interrogated by Nextgeneration Sequencing: A Large Cancer Center Experience. Cancer Genomics Proteomics 2018 May-Jul;15(2):121-126 (PMID: 82783761) Powers L, Ruel Y, Pak S, White L, Ma L, Gilmore H, James C, Emmanuel W, Agus Y, Peguero X, Emma C, Ye L, Luu W, Emmanuel H, Leatha C, Selvin J, Diomedes H (2019) Mutation status and burden can improve prognostic prediction of patients with lower-risk myelodysplastic syndromes. Cancer Sci. 2019;111(2):580-591. Epub 2018Mar 25 (PMID: 10632721) Camacho FAM, Liz CERNA, Gilmar Solano, Sara RL, Elgin M, Kavita R, Leidy (2018) Clinical Significance of DNA Variants in Chronic Myeloid Neoplasms: A Report of the Association for MolecularPathology. J Mol Diagn. 2018 Jan;20(6):717-737. Epub 2017Nov 19 (PMID: 46673784) Michael KH, Charles T, Mike M, Fatouer S, Aris MC, G??rlich D, Sauceda S, Semajin BIAZZI NITRATOR OPERATOR, Ara A, Br??undl K, Henry B, Raheelllfara E, Jarrod L, Toni PA, Fiegl M, Jomarklewe M, Patoer SK, Gurvinder U, Faldum A, Berdel WE, W??elza B, Buchner T, Hiddemann W, Rama J, Jason K, AMLCG Study Group (2016) Spectrum and prognostic relevance of driver merchandiser gene mutations in acute myeloid leukemia. Blood. 2016 Nov 03;128(5):686-98. Epub 2016 Sep 09 (PMID: 42324167) Michael J, Nusrat M, Mando H, Ricki H, Summer D, Mando X, Mahi Z, Alan Landeros SM, Mando Flood, Jhoana PETERSEN(2017) Comparison of the Mutational Profiles of Primary Myelofibrosis, Polycythemia Vera, and Essential Thrombocytosis. Am J Clin Pathol 2017 July 31;147(5):444-452 (PMID: 79343259) (2019) Myeloproliferative Neoplasms NCCN Clinical Practice Guidelines in Oncology (NCCN Guidelines)for Myeloproliferative Neoplasms V.3.2019 https://www.nccn.org/professionals/physician_gls/pdf/mpn.pdf (2019) Acute Myeloid Leukemia NCCN Clinical Practice Guidelines in Oncology (NCCN Guidelines) for Acute Myeloid Leukemia V. https://www.nccn.org/professionals/physician_gls/pdf/aml.pdf Testing performed at [facility], [place] [address]. CLIA [id number]. A complete report with references is available, call the Molecular Laboratory at if needed. Primary Pathologist: Isai Gongora M.D., Ph.D. Phone #: [phone], On-Call Pathologist: [id number] * Jackie Hernandez: PERFORM, SIGN, VERIFY Event Display: Patient Education/Instruction Authored Date: [id number] [facility] *Heme/Onc Adult Clinical Summary Name SUPRIYA BOJORQUEZ Age 51 Years 1970 PCP Ailyn Gonzalez NP PCP Visit Date 02/03/2022 16:32:00 Additional Instructions: Scheduled Appointments?? Future Appointments ?[facility] ?Phone:??--?Fax:??-- ?Appt. Date:??03/10/2022?9:00 AM ?Scheduled Provider:??Devonte Mercer DO Follow-Up Instructions ?? With: Address: When: Reji Karen [address] [place] [address] [place] [address] Business (1) 05/10/2022 10:00 AM Comments: 3400 Diagnosis Medications: Please continue your medications until treatment is completed or stopped by your provider. Discuss any questions related to medications with your provider. Medications to Continue with No Changes These medications were not printed or sent to your pharmacy Calcium And Vitamin D Combination (calcium (as carbonate and lactate)-vitamin D 200 mg-250 intl units oral tablet, chewable) 2 tab(s) Oral twice a day. Next Dose: magnesium sulfate/potass Cl/sodium sulf (Sutab oral tablet) Complete as per split prep instructions. Refills: 0. Next Dose: Multivitamin With Minerals (Multiple Vitamins with Minerals and Essential Fatty Acids oral capsule)1 tab(s) Oral Daily. Refills: 3. Next Dose: PEG Electrolyte Solution (NuLYTELY with Flavor Packs oral powder for reconstitution) 240 MilliliterOral every 10 minutes. half after 5pm evening before, finish remaing half 6 hours prior to procedure. Refills: 0. Next Dose: Trazodone (traZODone 50 mg oral tablet) 1 tab(s) Oral Daily at Bedtime. Refills: 5. Next Dose: No Longer Take the Following Medications Triamcinolone Topical (triamcinolone 0.025% topical cream) Topically 3 times a day. Allergy Info:?? Pollen Medications Given This Visit Future Orders ?No future orders Vital Signs Height 160 cm Weight 59.3 kg BMI 23.16 kg/m2 Blood Pressure 129 mm Hg/78 mm Hg Temperature 97.4 DegF Pulse Rate 98 bpm Respiratory Rate 02 Sat Mode of Delivery 100 %/ You can now view a summary of your hospital visit from the comfort of your home through a free online portal called [employer]. [employer] is a website that allows you to securely view your medical information including discharge summary, medications and follow-up visits. ??You can alsosend a secure electronic message to your doctor???s office to request appointments, renew medications or just ask a question. You can enroll at [email or web address] or register during your next office visit. Disclaimer:?? The information provided is of a general nature and is intended to be used in conjunction with the recommendations and advice of your health care practitioner. ??Every effort has been made to ensure that the information provided is accurate and complete at the time it is provided to you however, as your needs change, or, as new ??information becomes available, different or additional instructions may be required. If you have questions, please consult with your primary care provider or pharmacist, as appropriate. ??This information is not intended to serve as substitution for assessment and evaluation by a qualified health care provider. If you do not have a primary care provider, you may find a [facility] provider by calling [facility] at [phone]. For information about the plan of care including goals and instructions for your diagnosis, please see the patient education orders section of this document. Patient Education Materials?? The content of this educational material or handout may have been modified, supplemented, or adapted from its original content and format to support your individualized medical care. Patient Care team information Care Team Personnel Name: Kanchan Bolivar RN Position: S RN Member Role: Primary Care Nurse Name: Ailyn Gonzalez NP Position: [facility] PCO Associate Professional Member Role: PCP Address: Address: [address] [place] [id number] Name: Gardenia Chen RN Position: [facility] MONA RN W/OE and Tasks Member Role: Primary Care Nurse Care Team Related Persons Name: YOLY MENENDEZ Address: [address] Name: OUMAR PEGUERO Address: [address] [address]
--- NOTE | 2023-12-07 12:13 | MHC.OFFWIV ---
Intake Vital Signs 12/07/23 12:17 Height 5 ft 3 in Weight 121 lb 6 oz BMI 21.5 BP 112/62 Blood Pressure Location Rt brachial Position Sitting Pulse 103 H Pulse Source Pulse Oximeter Pulse Oximetry (%) 96 Intake Visit Reasons: est/ left arm pain from fall Intake Note: Left arm pain. Fell at work ([employer]) on Sunday. She is going to work today to get information for workman's comp. Has not been seen anywhere else for this problem. 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 Required: No Allergies No Known Allergies Allergy (Verified 12/07/23 12:36) Medication List - Last Reconciled 12/07/23 by ADAN Arevalo-ORA calcium carbonate 1,200 mg PO DAILY folic acid 1 mg PO DAILY ketoconazole 2% 1 appl topical 2XW 14 days magnesium citrate 100 mg PO BEDTIME multivitamin 1 tab PO DAILY naltrexone 50 mg PO DAILY naltrexone microspheres ER (Vivitrol) 380 mg IM Q4W thiamine mononitrate (vit B1) 100 mg PO DAILY Do you need a note to return to daycare/school/sports/work: Yes Return to daycare/school/sports/work/other note: work HPI HPI Comments History of Present Illness Details 53-year-old female here today with complaints of an injury that occurred as a result of a workman's comp case. While at work 12/05/23 at [employer], she was walking and slipped on grapes that were on the floor and fell onto L elbow and right knee. Witnessed by coworker. Since this time, has had bruising, pain and swelling to left arm/elbow. Has a skin tear to right knee. Knee itself is ok, able to walk and bear wt. Using APAP to help the pain Missed shift 12/06/23 d/t the pain in her arm. Her next shift is today at 1530. No medical treatment rendered until today. Plan Check imaging of the left arm today to rule out a fracture. Although this seems unlikely given the exam today. If there is a fracture, we will refer to orthopedics. We will give her a note to keep her out of work today until we get the x-ray results. We will also excuse her from her missed shift yesterday. She can continue to use Tylenol as needed to help the pain. Also recommended heat alternating with ice. Gentle range of motion and stretching exercises. Reviewed with her physical requirements of work. Does not feel like she needs any restrictions placed at this time. Educated on reasons to return to the office. At the close of this note the x-rays are pending. This note is constructed using voice recognition software. While every effort has been made to ensure accuracy in ec teacher, still errors may have been included Sometimes, these errors may affect the content or meaning of the given sentence . Total time spent caring for the patient today was 30 minutes. This includes time spent before the visit reviewing the chart, time spent during the visit, and time spent after the visit on documentation [facility] Medical History Pancytopenia Easy bruising Thrombocytopenia Menopause Loss of balance Hypersplenism Cytopenia ASCUS with positive high risk HPV cervical Alcoholic liver disease Alcohol abuse Surgical History History of bilateral carpal tunnel release Family History Mother Cancer of rectum Father Hypertension Social History Household Members: Significant Other Housing: Apartment Alcohol intake: current Alcohol intake frequency: 3 or more drinks per day Alcohol type: beer and hard liquor Patient Tobacco Use Status: Never used Tobacco e-Cigarette/Vaping Use: Never Used Second Hand Smoke Exposure: Yes (Fiance vapes) service: No Current occupational status: employed 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 Normal strength. Normal tone. Pain over the areas that are bruised. Neurovascularly intact. Skin tear to the right knee is not infected. Elbow/forearm/wrist images: 1. ecchymosis edema 2. superficial skin tear Assessment & Plan Assessment & Plan (1) Encounter related to worker's compensation claim: Code(s): Z02.6 - Encounter for examination for insurance purposes (2) Skin tear of right lower leg without complication: Code(s): S81.811A - Laceration without foreign body, right lower leg, initial encounter Qualifiers: Encounter type: initial encounter Qualified Code(s): S81.811A - Laceration without foreign body, right lower leg, initial encounter Plan: . (3) Left elbow pain: Code(s): M25.522 - Pain in left elbow Plan: . (4) Left arm pain: Code(s): M79.602 - Pain in left arm Plan: . (5) Fall: Code(s): W19.XXXA - Unspecified fall, initial encounter Qualifiers: Encounter type: initial encounter Qualified Code(s): W19.XXXA - Unspecified fall, initial encounter Plan: . Plan . Orders: Orders XR elbow LT min 3V Today M25.522 - Pain in left elbow, M79.602 - Pain in left arm, S81.811A - Laceration without foreign body, right lower leg, initial encounter, W19.XXXA - Unspecified fall, initial encounter XR forearm LT 2V Today M25.522 - Pain in left elbow, M79.602 - Pain in left arm, S81.811A - Laceration without foreign body, right lower leg, initial encounter, W19.XXXA - Unspecified fall, initial encounter XR humerus LT Today M25.522 - Pain in left elbow, M79.602 - Pain in left arm, S81.811A - Laceration without foreign body, right lower leg, initial encounter, W19.XXXA - Unspecified fall, initial encounter Medications: New acetaminophen ER 650 mg PO Q8H PRN 30 tabs 0RF pain Coding Level of Care Code Est Pt Level 4 (44882) Diagnoses Encounter related to worker's compensation claim Z02.6 Skin tear of right lower leg without complication, initial encounter S81.811A Encounter type: initial encounter Left elbow pain M25.522 Left arm pain M79.602 Fall, initial encounter W19.XXXA Encounter type: initial encounter
[2023-12-07 12:17] VITALS: BP 112/62; PULSE 103; O2SAT 96; BMI 21.5
== END 2023-12-07 17:05 | disposition home or self-care (01) ==
PROVIDERS: PCP Family Medicine; Visit Provider Nurse Practitioner Family
DX: S81.811A Laceration without foreign body, right lower leg, initial encounter (principal); M25.522 Pain in left elbow; M79.602 Pain in left arm; Z04.2 Encounter for examination and observation following work accident; W19.XXXA Unspecified fall, initial encounter
CPT/HCPCS: 99214

== ENCOUNTER 2023-12-07 14:10 | Outpatient (REF) | payer OTHER, SELFPAY ==
--- NOTE | ~2023-12-07 | XR_ITS ---
EXAMINATION: XR FOREARM, LEFT CLINICAL INFORMATION: Fall COMPARISON: None available. TECHNIQUE: AP and lateral views of the left forearm were obtained. FINDINGS: The bones and soft tissues are normal. No fracture. Imaged portions of the elbow and wrist are unremarkable. XR/XR forearm LT 2V IMPRESSION: Normal left forearm. Electronically signed by: Ansley Hogan MD 12/08/2023 05:19 PM EDT RP
--- NOTE | ~2023-12-07 | XR_ITS ---
EXAMINATION: XR ELBOW, LEFT CLINICAL INFORMATION: Fall COMPARISON: None available. TECHNIQUE: AP, lateral, and oblique views of the left elbow. FINDINGS: Slight abnormality along the lateral epicondyle. Possible small joint effusion. Alignment is anatomic. Joint spaces are maintained. XR/XR elbow LT min 3V IMPRESSION: 1. Possible small joint effusion. 2. Slight abnormality along the lateral epicondyle. Recommend correlation with point tenderness. Electronically signed by: Ansley Hogan MD 12/08/2023 05:22 PM EDT
--- NOTE | ~2023-12-07 | XR_ITS ---
EXAMINATION: XR HUMERUS, LEFT CLINICAL INFORMATION: Fall COMPARISON: None available. TECHNIQUE: AP and lateral views of the left humerus. FINDINGS: The bones and soft tissues are normal. No fracture. Imaged portions of the shoulder and elbow are unremarkable. XR/XR humerus LT IMPRESSION: Normal left humerus. Electronically signed by: Ansley Hogan MD 12/08/2023 05:19 PM EDT
== END 2023-12-07 14:11 | disposition home or self-care (01) ==
LOC: HO.XRAY 14:10
PROVIDERS: PCP Family Medicine; Visit Provider Nurse Practitioner Family
DX: M79.602 Pain in left arm (principal); M25.522 Pain in left elbow; S81.811A Laceration without foreign body, right lower leg, initial encounter; W19.XXXA Unspecified fall, initial encounter
CPT/HCPCS: 73060; 73080; 73090

== ENCOUNTER 2023-12-11 10:02 | Outpatient (AMB) | payer OTHER, SELFPAY ==
--- NOTE | 2023-12-11 10:45 | AM.OFFVISNUR ---
Intake Visit Reasons: Vivitrol Injection Allergies No Known Allergies Allergy (Verified 12/07/23 12:36) Nursing Note Patient Presents for Vivitrol Injection. Current Dose 380 mg. Given in the LG with no noted or stated complication. Denies any issues with previous injection. Patient acknowldges she did drink 2 days ago, was very tearful. Last appt with provider was last month, will follow up with RN in 4 weeks for injection. Will need to see provider for check in January. Patient states she will be attending a group tonight that focuses on anxiety and depression , and has been seeing her therapist more regularly. Office Meds Vivitrol 380 mg intramuscular suspension,extended release Performing Provider: Shelli Mcmahan CNP Performing Location: [facility] Administered by: Preethi Hansen RN on 12/11/23 10:48 Dose Route Admin Location Dispensed Lot Number Expiration Date [facility] Banking Services Officer 380 mg IM LG 380 mg [id number] 04/01/26 74280-791-01 [employer] Assessment & Plan Assessment & Plan Orders: Orders AMB Naltrexone Injection Patient Supplied (NC) Today F10.20 - Alcohol dependence, uncomplicated
== END 2023-12-11 10:37 | disposition home or self-care (01) ==
PROVIDERS: PCP Family Medicine
DX: F10.20 Alcohol dependence, uncomplicated (principal)

== ENCOUNTER → 2023-12-11 10:02 | Outpatient (BNVA) | payer OTHER, SELFPAY | PROVIDERS: PCP Family Medicine | DX: F10.20 Alcohol dependence, uncomplicated (principal) | CPT/HCPCS: 96372; J2315 ==

== ENCOUNTER 2024-01-03 10:02 | Outpatient (AMB) | payer OTHER, SELFPAY ==
--- NOTE | 2024-01-03 10:06 | MHC.OFFVIS ---
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 Patient reports while she slipped on grapes causing her to fall forward. For the past week her pain has been radiating from her thumb to her elbow. She has a tingling sensation in her elbow that travels down to all her fingers. Finds no relief with icing or a compression sleeve. She continues to work with no restrictions. 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 She reports her pain has been radiating from her thumb to her elbow for the past week. She also experiences tingling sensation in her elbow that radiates down to all her fingers. She finds no relief with icing and compression sleeve. She continues to work with no restrictions. PFSH Medical History Pancytopenia Easy bruising Thrombocytopenia Menopause Loss of balance Hypersplenism Cytopenia ASCUS with positive high risk HPV cervical Alcoholic liver disease Alcohol abuse Surgical History History of bilateral carpal tunnel release Family History Mother Cancer of rectum Father Hypertension Social History Household Members: Significant Other Housing: Apartment Alcohol intake: current Alcohol intake frequency: 3 or more drinks per day Alcohol type: beer and hard liquor Patient Tobacco Use Status: Never used Tobacco e-Cigarette/Vaping Use: Never Used Second Hand Smoke Exposure: Yes (Fiance vapes) service: No Current occupational status: employed 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[employer] Current occupational exposures/hazards: No Cognitive needs: No Hearing needs: No Vision needs: No Review of Systems Const All systems reviewed & are unremarkable except as noted in HPI and below Physical Exam Const General: cooperative, healthy appearing, comfortable, no acute distress, well developed and alert Orientation/consciousness: patient oriented x3 HEENT Head: Yes normal to inspection, Yes normocephalic and Yes atraumatic Eyes General: appearance normal, both eyes and all related structures Resp Effort & Inspection: normal respiratory effort and able to speak in complete sentences Cardio Rate: regular rate Peripheral pulses: Peripheral pulses 2+ throughout GI Palpation (GI): Soft to palpation Skin Lesions: no lesions Rashes: no rashes Neuro General: patient oriented x3 Extrem Other: Left elbow: Normal to inspection. She does have tenderness over the medial and lateral epicondyle and pain with valgus stress testing. She has some bruising over the medial epicondyle which extends to the forearm with a palpable hematoma. She has full ROM, supination and pronation without pain. She does experience some dense over the median nerve distribution of the hand. Results Reviewed Results Reviewed: xrays of the left forearm, humerus and elbow obtained in the ED on 12/07/23 are negative for acute fractures or dislocations. Assessment & Plan Assessment & Plan (1) Left elbow contusion: Code(s): S50.02XA - Contusion of left elbow, initial encounter Category: Medical (2) Cubital tunnel syndrome on left: Code(s): G56.22 - Lesion of ulnar nerve, left upper limb Category: Medical (3) Sprain of elbow, left: Code(s): S53.402A - Unspecified sprain of left elbow, initial encounter Category: Medical Plan We discussed options today which include occupational therapy for the left elbow and an MRI to further evaluate the ligamentous structures of elbow. She can return to work however she should limit any type of lifting, pushing, pulling, or carrying greater than 5 pounds till I see her back with the MRI results, at that point she we can determine the next step in her treatment. Patient Instructions: Scribed for Michael Moore PA-C, by Collins Luong, ophthalmic medical technician, on 01/03/2024 at 10:00 AM EST.? I, Michael Moore PA-C, have personally reviewed and agree with the information entered by the scribe. Coding Level of Care Code New Pt Level 3 (77749) Complex EM visit Add On G2211 Diagnoses Left elbow contusion S50.02XA Cubital tunnel syndrome on left G56.22 Sprain of elbow, left S53.402A
[2024-01-03 11:24] VITALS: BMI 21.4
== END 2024-01-03 10:43 | disposition home or self-care (01) ==
PROVIDERS: PCP Family Medicine; Visit Provider Physician Assistant
DX: S50.02XA Contusion of left elbow, initial encounter (principal); S53.402A Unspecified sprain of left elbow, initial encounter; W01.0XXA Fall on same level from slipping, tripping and stumbling without subsequent striking against object, initial encounter; Z04.2 Encounter for examination and observation following work accident
CPT/HCPCS: 99203; G2211

== ENCOUNTER → 2024-01-03 10:02 | Outpatient (BNVA) | payer OTHER, SELFPAY | PROVIDERS: PCP Family Medicine; Visit Provider Physician Assistant | DX: S50.02XA Contusion of left elbow, initial encounter (principal); S53.402A Unspecified sprain of left elbow, initial encounter; G56.22 Lesion of ulnar nerve, left upper limb | CPT/HCPCS: 99202 ==

== ENCOUNTER 2024-01-08 09:09 | Outpatient (AMB) | payer OTHER, SELFPAY ==
--- NOTE | 2024-01-08 11:09 | AM.OFFVISNUR ---
Intake Visit Reasons: Vivitrol Injection Allergies No Known Allergies Allergy (Verified 01/03/24 10:11) Nursing Note Patient Presents for vivitrol Injection. Current Dose is 380mg/vial. Given in the RG with no noted or stated complication. Denies any issues with previous injection. Denies symptoms, and denies any break through cravings. Last appt with provider was last month, will follow up with RN in 4 weeks for injection. Will need to see provider for check in March . Office Meds Vivitrol 380 mg intramuscular suspension,extended release Performing Provider: Shelli Mcmahan CNP Performing Location: [facility] Administered by: Preethi Hansen RN on 01/08/24 11:23 Dose Route Admin Location Dispensed Lot Number Expiration Date [facility] [place] [facility] Paramedic 380 mg IM RG 380 mg [id number] 05/02/26 63862-313-91 Shared Performance Assessment & Plan Assessment & Plan Orders: Orders AMB Naltrexone Injection Patient Supplied (NC) Today F10.20 - Alcohol dependence, uncomplicated Medications: New Vivitrol ER (naltrexone microspheres) 380 mg IM ONCE 1 ea 0RF NS F10.20 - Alcohol dependence, uncomplicated
== END 2024-01-08 09:28 | disposition home or self-care (01) ==
PROVIDERS: PCP Family Medicine
DX: F10.20 Alcohol dependence, uncomplicated (principal)

== ENCOUNTER → 2024-01-08 09:09 | Outpatient (BNVA) | payer OTHER, SELFPAY | PROVIDERS: PCP Family Medicine | DX: F10.20 Alcohol dependence, uncomplicated (principal) | CPT/HCPCS: 96372; J2315 ==

== ENCOUNTER 2024-01-20 09:52 | Outpatient (REF) | payer OTHER, SELFPAY ==
--- NOTE | ~2024-01-20 | MR_ITS ---
EXAMINATION: MR ELBOW WITHOUT CONTRAST, LEFT CLINICAL INFORMATION: Left elbow pain, swelling, numbness. COMPARISON: Left elbow radiographs dated 12/07/2023. TECHNIQUE: MRI of the elbow was performed using routine sequences on a high-field scanner. FINDINGS: Ulnar collateral ligament: Intact. Common flexor tendon: Mildly increased T2 signal associated with common flexor tendon, consistent with mild tendinosis. Radial collateral ligament: Intact. Common extensor tendon: Mild common extensor tendinosis with a small focus of proximal interstitial partial tearing measuring up to 0.6 cm in craniocaudal dimension. No transverse tendon tear or tendon retraction. Biceps/triceps tendon: Mild distal biceps tendinosis. No biceps or triceps tendon tear. Articular cartilage/bone: Intact articular cartilage. No osteochondral lesion. No fracture or dislocation. No marrow edema or evidence of acute osseous injury. Ulnar nerve: Intact. Joint fluid/soft tissues: Trace elbow joint effusion. Medial subcutaneous edema. No soft tissue mass or organized fluid collection. MR/MR elbow LT wo con IMPRESSION: 1. Mild common extensor tendinosis with a small focus of proximal interstitial partial tearing. No transverse tendon tear or tendon retraction. 2. Mild common flexor tendinosis. 3. Mild distal biceps tendinosis. 4. Trace elbow joint effusion. Medial subcutaneous edema. Electronically signed by: Harley Corona MD 01/29/2024 11:13 AM EDT
== END 2024-01-20 09:53 | disposition home or self-care (01) ==
LOC: HO.MRI 09:52
PROVIDERS: PCP Family Medicine; Visit Provider Physician Assistant
DX: G56.22 Lesion of ulnar nerve, left upper limb (principal); S50.02XA Contusion of left elbow, initial encounter; S53.402A Unspecified sprain of left elbow, initial encounter
CPT/HCPCS: 73221

== ENCOUNTER 2024-02-05 10:02 | Outpatient (AMB) | payer OTHER, SELFPAY ==
--- NOTE | 2024-02-05 10:09 | AM.OFFVISNUR ---
Intake Visit Reasons: Vivitrol Injection Allergies No Known Allergies Allergy (Verified 01/03/24 10:11) Nursing Note Patient Presents for vivitrol Injection. Current Dose 380mg. Given in LG the with no noted or stated complications. Denies any issues with previous injection. Denies symptoms, and denies any break through cravings, states she hasnt had a drink in 2 weeks. Will follow up with RN in 4 weeks for injection. Will need to see provider for check in March . Office Meds Vivitrol 380 mg intramuscular suspension,extended release Performing Provider: Shelli Mcmahan CNP Performing Location: [facility] Administered by: Preethi Hansen RN on 02/05/24 10:16 Dose Route Admin Location Dispensed Lot Number Expiration Date [facility] Physical Therapist 380 mg IM LG 380 mg [id number] 06/30/26 56513-115-26 [employer] Assessment & Plan Assessment & Plan Orders: Orders AMB Naltrexone Injection Patient Supplied (NC) Today F10.20 - Alcohol dependence, uncomplicated Medications: New Vivitrol ER (naltrexone microspheres) 380 mg IM ONCE 1 ea 0RF NS F10.20 - Alcohol dependence, uncomplicated
== END 2024-02-05 10:33 | disposition home or self-care (01) ==
LOC: HO.HCC 10:03
PROVIDERS: PCP Family Medicine
DX: F10.20 Alcohol dependence, uncomplicated (principal)

== ENCOUNTER → 2024-02-05 10:02 | Outpatient (BNVA) | payer OTHER, SELFPAY | PROVIDERS: PCP Family Medicine | DX: F10.20 Alcohol dependence, uncomplicated (principal); Z79.899 Other long term (current) drug therapy | CPT/HCPCS: 96372; J2315 ==

== ENCOUNTER 2024-02-18 11:01 | Outpatient (RCR) | payer OTHER, SELFPAY ==
--- NOTE | 2024-01-08 10:52 | MHC.OT.EP ---
[address] [phone] Occupational Therapy Plan of Care Patient Name: Mimi Suarez Date of Evaluation: 01/08/24 Diagnosis: L elbow contusion Pain Location: Elbow to wrist; pulling on radial side of wrist Pain Score: 4 Pain Scale Used: Numeric (0 - 10) Aggravating Factors: movement / use of UE Alleviating Factors: at rest - Tylenol helps Assessment: Pt is a 53 yr. old L hand dominant female who fell and injured her L elbow when she slipped on grapes while working at [employer] on 12/05/23. She went to the MD the following day when sx's worsened. She had an X-ray of her UE which was negative for fractures. Pt presents with a hematoma and ecchymosis on ulnar/ lateral side of elbow. She had a follow up recently w/ the MD and they discussed scheduling an MRI (pt. is waiting approval from workman's comp). She is currently working an average of 32 hrs. a week and is on light duty (MD instructed her to avoid heavy lifting/ gripping) She has been referred to skilled OT therapy to decrease pain, increase strength and functional use of her dominants UE. 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 Thank you once again for your referral.
--- NOTE | 2024-02-18 11:24 | MHC.OT.DC ---
[address] [phone] F: [phone] Occupational Therapy Discharge Note Patient Name: Mmii Suarez Provider: Michael Moore Diagnosis: L elbow contusion Date of Surgery: Date of Evaluation: 01/08/24 Date of Discharge: Treatments to Date: 10 Cancellations to Date: No Shows to Date: Discharge Status: Independent with HEP Discharge Summary: Pt tolerated therapy well today. She has a great understanding of her HEP and stretching program. There is still concern w/ bruising on her R UE which she denies trauma to her UE (told to discuss w/ MD today). 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
== END 2024-02-18 11:25 | disposition home or self-care (01) ==
LOC: HO.OT 11:01
PROVIDERS: PCP Family Medicine; Visit Provider Physician Assistant
DX: S50.02XD Contusion of left elbow, subsequent encounter (principal); S53.402D Unspecified sprain of left elbow, subsequent encounter; G56.22 Lesion of ulnar nerve, left upper limb
CPT/HCPCS: 97110; 97140; 97166; 97535

== ENCOUNTER 2024-02-18 13:00 | Outpatient (AMB) | payer OTHER, SELFPAY ==
--- NOTE | 2024-02-18 12:57 | MHC.OFFVIS ---
Intake Visit Reasons: Tel- Left Elbow MRI review Intake Note: Mimi a 53 year old female who is scheduled for a telephone visit to discuss MRI review of left elbow s/p WC injury on 12/05/23. Patient reports her pain has been radiating up into her shoulder as well as a tingling sensation in her fingers. Allergies No Known Allergies Allergy (Verified 02/18/24 13:03) HPI HPI Tel- Left Elbow MRI review: Details: 53 yo female returns for telehealth left elbow. She states she has pain around the thumb and finger that goes into the elbow. She feels it is worse with movement or lifting of the left arm which is affected at work. PFSH Medical History Pancytopenia Easy bruising Thrombocytopenia Menopause Loss of balance Hypersplenism Cytopenia ASCUS with positive high risk HPV cervical Alcoholic liver disease Alcohol abuse Surgical History History of bilateral carpal tunnel release Family History Mother Cancer of rectum Father Hypertension Social History Household Members: Significant Other Housing: Apartment Alcohol intake: current Alcohol intake frequency: 3 or more drinks per day Alcohol type: beer and hard liquor Patient Tobacco Use Status: Never used Tobacco e-Cigarette/Vaping Use: Never Used Second Hand Smoke Exposure: Yes (Fiance vapes) service: No Current occupational status: employed 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 occupational 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/hazards: No Cognitive needs: No Hearing needs: No Vision needs: No Review of Systems Const All systems reviewed & are unremarkable except as noted in HPI and below Physical Exam Resp Effort & Inspection: normal respiratory effort and able to speak in complete sentences Telehealth Telehealth Telehealth Platform: Telephone Location of provider rendering services: practice address Location of patient: address on file Patient Identification confirmed using: Name, : Yes Telehealth method: voice only Patient verbally consented to treatment: Yes Patient verbally consented to billing insurance company: Yes Patient informed of any privacy concerns related to visit: Yes Minutes spent on Phone/Video with Pt.: 10 Results Reviewed Results Reviewed: MR elbow LT wo con IMPRESSION: 1. Mild common extensor tendinosis with a small focus of proximal interstitial partial tearing. No transverse tendon tear or tendon retraction. 2. Mild common flexor tendinosis. 3. Mild distal biceps tendinosis. 4. Trace elbow joint effusion. Medial subcutaneous edema. Assessment & Plan Assessment & Plan (1) Tendinitis of extensor tendon of left hand: Code(s): M77.8 - Other enthesopathies, not elsewhere classified Category: Medical (2) Left elbow tendinitis: Code(s): M77.8 - Other enthesopathies, not elsewhere classified Category: Medical Plan I discussed with the patient over the phone her MRI results. We are going to continue with occupational therapy as she has seen some relief with this. We also put in a restriction at work no lifting pushing pulling or carrying greater than 10 lb for the next 4 weeks and then she can resume normal duty. I stressed the importance of maintaining her exercises and use anti-inflammatories for occasional flare-ups. She is content with these recommendations and will call if there is any questions or concerns. Coding Level of Care Code Tele Est Pt Level 3 (15695) Complex EM visit Add On G2211 Diagnoses Tendinitis of extensor tendon of left hand M77.8 Left elbow tendinitis M77.8
--- OUTSIDE RECORDS SUMMARY | 2024-02-22 13:06 | XMS_ITS | Continuity of Care Document ---
Author Organization [facility] Address [address] [place] [address]- Care Team Providers Care Management Tech Name Role Phone Carlos ARSHAD, Ailyn Primary Care Physician Encounter [facility] Date(s): 06/29/21 - 10/31/21 [facility] [address] [place] [id number] Discharge Disposition: A-D/C Home Attending Physician: Tori CERNA(Hem/Onc), Christopher Bautista Admitting Physician: Tori CERNA(Hem/Onc), Christopher Bautista Referring Physician: Will Isbell MD Allergies, Adverse [...] vaccine, inactivated 01/14/19 Kulwant rded SARS-CoV-2 mRNA ([id number]) vax 4 09/29/20 Recorded SARS-CoV-2 mRNA ([id number]) vax 5 09/01/20 Recorded SARS-CoV-2 (COVID-19) mRNA-1273 vaccine 09/29/20 R ecorded SARS-CoV-2 (COVID-19) mRNA-1273 vaccine 09/01/20 R ecorded tetanus/diphtheria/pertussis, acel(Tdap) 09/02/20 Given tetanus/diphtheria/pertussis, acel(Tdap) 09/02/20 Recorded pneumococcal 13-valent vaccine 7 08/29/17 Recorded pneumococcal 23-valent vaccine 08/29/17 Recorded 1Result Comment: Glass Sagger: ViaWest 2Result Comment: Glass Sagger: Sanofi Pasteur 3Result Comment: Glass Sagger: Seqirus 4Result Comment: Glass Sagger: [employer] 5Result Comment: Glass Sagger: [employer] 6Result Comment: Glass Sagger: GlaxCold Crate 7Result Comment: Glass Sagger: Merck and Co., Inc. Medications folic acid 1 mg oral tablet 1 mg, 1, tablet, By Mouth, Daily, # 60 tablet, Refills 0, Tot. Refills 0, Maintenance, 06/29/21 7:27:00 EDT, Route to Pharmacy Electronically, [facility], Partial fill upon patient request if the prescription is for a schedule II opioid... Start Date: 06/29/21 Stop Date: 08/28/21 Status: Ordered Multiple Vitamins with Minerals and Essential Fatty Acids oral capsule 1 tablet, By Mouth, Daily, # 90 tablet, 3 Refills, Maintenance, 08/04/21 10:13:00 EDT, Capsule, [facility]/pharmacy #[id number], Partial fill upon patient request if the prescription is for a schedule II opioid drug., 1 tablet By Mouth Daily, 160, cm, 08/04/21 9:5... Start Date: 08/04/21 Status: Ordered Sutab oral tablet See Instructions, Complete as per split prep instructions, # 1 kit, 0 Refills, Maintenance, 10/26/21 12:11:00 EDT, [facility]/pharmacy #[id number], Partial fill upon patient request if the prescription is for a schedule II opioid drug., Complete as per split prep... Start Date: 10/26/21 Status: Ordered Vitamin B1 Daily, 0 Refills, Maintenance, 09/14/21 10:06:00 EDT, Partial fill upon patient request if the prescription is for a schedule II opioid drug. Start Date: 09/14/21 Status: Ordered Problem List Condition Effective Dates Status Health Status Inform ant Alcohol abuse(Confirmed) 02/13/21 Active Alcoholic liver disease(Confirmed) 02/20/17 Active ASCUS with positive high ris k HPV cervical(Confirmed) Active Cytopenia(Confirmed) Active Hypersplenism(Confirmed) Active Loss of balance(Confirmed) Active Leukopenia(Confirmed) Active Menopause(Confirmed) Active Thrombocytopenia(Confirmed) Active Vital Signs Most recent to oldest [Reference Range]: 1 Height 160.02 cm (07/28/21 11:18 AM) Weight 61.4 kg (07/28/21 11:18 AM) Pulse Rate [55-90 bpm] 103 bpm *H* (07/28/21 11:18 AM) Body Mass Index [18.5-24.99] 23.98 (07/28/21 11:18 AM) Blood Pressure [90-138/55-84 mm Hg] 131/ 70mm Hg (07/28/21 11:18 AM) Temperature [96.8-100.4 DegF] 97.4 DegF (07/28/21 11:18 AM) Blood pressure sites Arm, right (07/28/21 11:18 AM) Temperature Route Temporal (07/28/21 11:18 AM) Dry Weight 61.4 kg (07/28/21 11:18 AM) Weight Obtained Via Standing scale (07/28/21 11:18 AM) Dry Weight Obtained Via Standing scale (07/28/21 11:18 AM) Social History Social History Type Response Smoking Status Never (less than 100 in lifetime) entered on: 06/26/21 Sex
== END 2024-02-18 13:06 | disposition home or self-care (01) ==
LOC: HO.HOS 13:00
PROVIDERS: PCP Family Medicine; Visit Provider Physician Assistant
DX: M77.8 Other enthesopathies, not elsewhere classified (principal)
CPT/HCPCS: 99213; G2211

== ENCOUNTER 2024-03-05 09:57 | Outpatient (AMB) | payer OTHER, SELFPAY ==
--- NOTE | 2024-03-05 10:10 | MHC.AM.SUB ---
Vital Signs 03/06/24 11:47 BP 130/70 Blood Pressure Location Rt radial Position Sitting Pulse 85 Pulse Source Pulse Oximeter Pulse Oximetry (%) 95 Intake Visit Reasons: MAT/ Vivitrol Injection Allergies No Known Allergies Allergy (Verified 02/18/24 13:03) HPI HPI MAT/ Vivitrol Injection: Details: Patient presents for follow up and vivitrol injection Discussed injection--feels it is very effective, but does note at the end of the month it feels less effective with regards to managing cravings Encouraged to take PO doses the last week Bright affect Reporting drinking has decreased significantly States she is having 1-2 beers 1-2x/week. I'm not even sure why I am having them, I don't actually want them She states that she feels cleared and noted her sleep has improved Shared that she feels her family has been more supportive and on Thanksgi, no one had any alcohol Review of Systems Const Reports as per HPI and Reports no additional complaints Physical Exam Const General: cooperative, healthy appearing and well groomed Nutritional Appearance: thin Orientation/consciousness: patient oriented x3 Limitations: no limitations Neuro General: patient oriented x3 Assessment & Plan Assessment & Plan (1) Alcohol use disorder, severe, dependence: Code(s): F10.20 - Alcohol dependence, uncomplicated Category: Medical Plan: risk reduction discussion and safety planning for the holidays tolerated injection reminded of lab work to be completed [facility] Medical History Pancytopenia Easy bruising Thrombocytopenia Menopause Loss of balance Hypersplenism Cytopenia ASCUS with positive high risk HPV cervical Alcoholic liver disease Alcohol abuse Surgical History History of bilateral carpal tunnel release Family History Mother Cancer of rectum Father Hypertension Social History Household Members: Significant Other Housing: Apartment Alcohol intake: current Alcohol intake frequency: 3 or more drinks per day Alcohol type: beer and hard liquor Patient Tobacco Use Status: Never used Tobacco e-Cigarette/Vaping Use: Never Used Second Hand Smoke Exposure: Yes (Fiance vapes) service: No Current occupational status: employed 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
[2024-03-06 11:47] VITALS: BP 130/70; PULSE 85; O2SAT 95
== END 2024-03-05 10:34 | disposition home or self-care (01) ==
PROVIDERS: PCP Family Medicine; Visit Provider Nurse Practitioner Psychiatric/Mental Health
DX: F10.20 Alcohol dependence, uncomplicated (principal)
CPT/HCPCS: 99213

== ENCOUNTER → 2024-03-05 09:57 | Outpatient (BNVA) | payer OTHER, SELFPAY | PROVIDERS: PCP Family Medicine; Visit Provider Nurse Practitioner Psychiatric/Mental Health | DX: F10.20 Alcohol dependence, uncomplicated (principal) | CPT/HCPCS: 99212 ==

== ENCOUNTER 2024-03-17 10:50 | Outpatient (REF) | payer OTHER, SELFPAY | END 2024-03-17 10:51 | disposition home or self-care (01) | LOC: HO.MAMMO 10:50 | PROVIDERS: PCP Family Medicine; Visit Provider Physician Assistant | DX: Z13.89 Encounter for screening for other disorder (principal) ==

== ENCOUNTER 2024-03-27 10:51 | Outpatient (REF) | payer OTHER, SELFPAY ==
--- NOTE | ~2024-03-27 | MM_ITS ---
EXAMINATION: MM DIAGNOSTIC DIGITAL BREAST TOMOSYNTHESIS, BILATERAL Limited right breast ultrasound. CLINICAL INFORMATION: Follow-up for right breast calcifications from outside imaging. COMPARISON: Mammography: Comparison is made with relevant prior exams. TECHNIQUE: Digital breast mammography with tomosynthesis is performed in both the craniocaudal and mediolateral oblique views along with computer-aided detection (CAD). Limited right breast ultrasound. FINDINGS: The breasts are heterogeneously dense, which may obscure small masses (ACR BI-RADS breast composition Category c). Previously seen grouped calcifications in the lower inner breast posterior depth are slightly increased compared with priors dating back to 202104/21/2019. There are new grouped amorphous calcifications in the retroareolar region which have increased from prior's. An area of focal asymmetry in the upper central breast middle to posterior depth is seen and could represent an island of normal fibronodular breast tissue versus focal asymmetry. No other abnormal findings are seen. Targeted color Doppler ultrasound scanning in the superior breast from 10-2 o'clock demonstrates normal fibronodular breast tissue. Results are provided to the patient at time of visit by the technologist. MM/MM tomosynthesis diagnostic BI IMPRESSION: 1. New grouped amorphous calcifications in the retroareolar region. Recommend stereotactic core needle biopsy for further confirmation. 2. Grouped coarse heterogeneous calcifications in the lower inner breast which have increased from prior's. Recommend stereotactic core needle biopsy for confirmation at this time. 3. Focal asymmetry in the upper central breast without sonographic correlate. Recommend management pending biopsy of the other 2 areas to include a six-month follow-up. ASSESSMENT: BI-RADS BI-RADS 4 - Suspicious finding RECOMMENDATION: Biopsy recommended This patient's information was entered into a reminder system with a target due date for their next mammogram. Electronically signed by: Kellie Dwyer DO 03/27/2024 12:33 PM EST
== END 2024-03-27 10:52 | disposition home or self-care (01) ==
LOC: HO.MAMMO 10:51
PROVIDERS: PCP Family Medicine; Visit Provider Family Medicine
DX: R92.1 Mammographic calcification found on diagnostic imaging of breast (principal)
CPT/HCPCS: 76642; 77062; 77066

== ENCOUNTER → 2024-03-27 11:15 | Outpatient (BNV) | payer OTHER, SELFPAY | PROVIDERS: PCP Family Medicine; Visit Provider Internal Medicine | DX: R92.1 Mammographic calcification found on diagnostic imaging of breast (principal); R92.333 Mammographic heterogeneous density, bilateral breasts; R92.321 Mammographic fibroglandular density, right breast | CPT/HCPCS: 76642; 77062; 77066 ==

== ENCOUNTER 2024-04-10 09:54 | Outpatient (AMB) | payer OTHER, SELFPAY ==
--- NOTE | 2024-04-10 11:20 | AM.OFFVISNUR ---
Intake Visit Reasons: Vivitrol Injection Allergies No Known Allergies Allergy (Verified 02/18/24 13:03) Nursing Note Patient Presents for vivitrol Injection. Current Dose 380mg. Given in RG the with no noted or stated complications. Denies any issues with previous injection. Denies symptoms, and denies any break through cravings. Will follow up with RN in 4 weeks for injection. Will need to see provider for check in May. Patient disclosed today that during her scheduled mammogram, two lumps were found and she has a biopsy scheduled next week . She was tearful and acknowledged being extremely fearful, I encouraged her to come see us as a walk in if needed. Office Meds Vivitrol 380 mg intramuscular suspension,extended release Performing Provider: Shelli Mcmahan CNP Performing Location: [facility] Administered by: Preethi Hansen RN on 04/10/24 16:20 Dose Route Admin Location Dispensed Lot Number Expiration Date [facility] Composition Teacher 380 mg IM RG 380 mg [id number] 08/30/26 41123-436-89 [employer] [place] Assessment & Plan Assessment & Plan Orders: Orders AMB Naltrexone Injection Patient Supplied (NC) Today F10.20 - Alcohol dependence, uncomplicated
== END 2024-04-10 10:19 | disposition home or self-care (01) ==
PROVIDERS: PCP Family Medicine
DX: F10.20 Alcohol dependence, uncomplicated (principal)

== ENCOUNTER → 2024-04-10 09:54 | Outpatient (BNVA) | payer OTHER, SELFPAY | PROVIDERS: PCP Family Medicine | DX: F10.20 Alcohol dependence, uncomplicated (principal) | CPT/HCPCS: 96372; J2315 ==

== ENCOUNTER 2024-04-17 10:39 | Outpatient (AMB) | payer OTHER, SELFPAY ==
--- NOTE | 2024-04-17 10:54 | A.OFFPC_ITS ---
Vital Signs 04/17/24 10:57 Height 5 ft 3 in Weight 121 lb 2 oz BMI 21.5 BP 108/60 Blood Pressure Location Lt brachial Position Sitting Respiration 12 Pulse 96 Pulse Source Pulse Oximeter Temp 98.4 F Temp Source Oral Pulse Oximetry (%) 96 Oxygen Delivery Method Room Air Intake Visit Reasons: rash around eye Intake Note: bilateral eye rash she also states she has been experiencing excessive eye watering and chills Allergies No Known Allergies Allergy (Verified 04/17/24 10:55) Tobacco use date assessed: 09/12/23 Dental Screening Dental Screen Date: 09/12/23 HPI rash around eye HPI Details 53 y/o female presents with complaints o f a rash around her eye. PFSH Medical History Pancytopenia Easy bruising Thrombocytopenia Menopause Loss of balance Hypersplenism Cytopenia ASCUS with positive high risk HPV cervical Alcoholic liver disease Alcohol abuse Surgical History History of bilateral carpal tunnel release Family History Mother Cancer of rectum Father Hypertension Social History Household Members: Significant Other Housing: Apartment Alcohol intake: current Alcohol intake frequency: 3 or more drinks per day Alcohol type: beer and hard liquor Patient Tobacco Use Status: Never used Tobacco e-Cigarette/Vaping Use: Never Used Second Hand Smoke Exposure: Yes (Fiance vapes) service: No Current occupational status: employed 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 1. Little interest or pleasure in doing things: nearly every day 2. Feeling down, depressed, or hopeless: nearly every day 3. Trouble falling or staying asleep, or sleeping too much: several days 4. Feeling tired or having little energy: several days 5. Poor appetite or overeating: several days 6. Feeling bad about yourself - or that you are a failure or have let yourself or your family down: not at all 7. Trouble concentrating on things, such as reading the newspaper or watching television: not at all 8. Moving or speaking so slowly that other people could have noticed. Or the opposite - being so fidgety or restless that you have been moving around a lot more than usual: not at all 9. Thoughts that you would be better off or of hurting yourself in some way: not at all Total score: 9 Source: Developed by Drs. Hossein Dougherty, Starla Harmon, Song Fernandez and colleagues, with an educational marco a from [employer]. Thrive Questionnaire Date Thrive assessed: 08/31/23 I am a: Patient What is your living situation today?: I have a steady place to live Within the past 12 months, did the food you bought not last and you didn't have the money to get more?: Never true Within the past 12 months, did you worry whether your food would run out before you got money to buy more?: Never true Do you have trouble paying for medicines?: No Do you have trouble getting transportation to medical appointments?: No Do you have trouble paying your heating and electricity bill?: No Do you have trouble taking care of your child, family member or friend?: No Do you have trouble with day-to-day activities such as bathing, preparing meals, shopping, managing finances, etc.?: No Are you currently unemployed and looking for a job?: No Are you interested in more education?: No Please select the resources that you would like help with: None Currently or been in a relationship where the following occur: No concerns reported THRIVE Score: 0 AUDIT C Alcohol Use Questionnaire (AUDIT-C) 1. How often do you have a drink containing alcohol?: 2-3 times a week 2. How many drinks containing alcohol do you have on a typical day when you are drinking?: 1 or 2 3. How often do you have six or more drinks on one occasion?: Never Total Score: 3 LETICIA-7 AMB Questionnaire LETICIA-7 Date LETICIA - 7 assessed: 08/29/23 Feeling nervous, anxious, or on edge: 0 = Not at all Not being able to stop or control worryin = Not at all Worrying too much about different things: 0 = Not at all Trouble relaxin = Not at all Being so restless that it is hard to sit still: 0 = Not at all Becoming easily annoyed or irritable: 0 = Not at all Feeling afraid as if something awful might happen: 0 = Not at all Total LETICIA-7 score (0-4 normal; 5-9 mild; 10-14 moderate; 15-21 severe): 0 Source: Developed by Drs. Hossein Dougherty, Starla Harmon, Song Fernandez and colleagues, with an educational marco a from [employer]. Review of Systems Const Denies chills, Denies fatigue, Denies fever(s), Denies headache(s) and Denies weakness ENT Denies dizziness and Denies headache(s) Card Denies dyspnea Resp Denies cough, Denies dyspnea, Denies wheezing and Denies other (shortness of breath) Musc Denies numbness and Denies tingling Skin/Breast Reports rash (Rash on both eyelids and under her eyes) Neuro Denies dizziness, Denies headache(s), Denies numbness, Denies tingling and Denies weakness Psych Denies anxiety and Denies depression Endo Denies fatigue Aller/Immun Denies wheezing Physical exam (Primary Care) Vital Signs: Last Vital Signs Temp 98.4 F 04/17/24 10:57 Pulse 96 04/17/24 10:57 Resp 12 04/17/24 10:57 BP 108/60 04/17/24 10:57 Pulse Ox 96 04/17/24 10:57 Oxygen Delivery Method Room Air 04/17/24 10:57 BMI result Body Mass Index 21.5 Tobacco/Smoking Status: Tobacco use Status Tobacco use date assessed 09/12/23 04/17/24 11:01 Patient Tobacco Use Status Never used Tobacco 04/17/24 11:01 e-Cigarette/Vaping Use Never Used 04/17/24 11:01 PHQ-9: PHQ-9 Score PHQ-9: Total score 9 04/17/24 11:01 Thrive Assessment: Date of Thrive Assessment Date Thrive assessed 08/31/23 04/17/24 11:01 Currently or been in a relationship where the following occur: No concerns reported Const General: well developed; No acute distress Nutritional Appearance: well nourished Orientation/consciousness: patient oriented x3 HENMT Head: Yes normocephalic and Yes atraumatic Eyes General: appearance normal, both eyes and all related structures Pupils: Equal, round and reactive pupils present EOM: EOMs intact bilaterally Resp Effort & Inspection: normal respiratory effort Auscultation: clear to auscultation bilaterally Cardio Rate: regular rate Rhythm: regular rhythm Heart sounds: S1 normal heart sound present, S2 normal heart sound present, no gallops, no murmurs and no rubs Skin Other: Rash on both eyelids and under her eyes and on forehead between her eyebrows. Some rash between her collarbones Neuro General: patient oriented x3 and gait normal Cranial nerves: Yes Equal, round and reactive pupils present Psych Affect: normal affect Coding Level of Care Code Est Pt Level 3 (26510) Diagnoses Rash R21 Assessment & Plan Assessment & Plan (1) Rash: Code(s): R21 - Rash and other nonspecific skin eruption Category: Medical Plan: Appears?allergic She?has?already?been?taking?a?daytime?antihistamine?recommended?at?a?prior?urgen t?care?visit. Will?have?her get?some?labs?drawn?today Will?have?her?continue?daytime?antihistamine?and?she?can?use?some?Benadryl?night Will?start?a?prednisone?taper Call?or?return?to?office?if?worsening?or?not?improving. Patient?says?she?has?had?this?happen?before.??Referring?her?to?immunology Orders: Orders Complete Blood Count Auto Diff Today R21 - Rash and other nonspecific skin eruption, Z00.00 - Encounter for general adult medical examination without abnormal findings MELO Reflex Titer and Pattern Today R21 - Rash and other nonspecific skin eruption Comprehensive Met. Panel Today R21 - Rash and other nonspecific skin eruption TSH reflex Free T4 Today R21 - Rash and other nonspecific skin eruption, Z00.00 - Encounter for general adult medical examination without abnormal findings Erythrocyte Sedimentation Rate Today R21 - Rash and other nonspecific skin eruption CRP High Sensitivity Today R21 - Rash and other nonspecific skin eruption Referrals Allergy & Immunology Referral R21 - Rash and other nonspecific skin eruption Medications: New prednisone 4 tabs daily for 4 days, 3 tabs daily for 2 days, 2 tabs daily for 2 days, 1 tab daily for 2 days PO daily; 10 days 28 tabs 0RF
[2024-04-17 10:57] VITALS: BP 108/60; PULSE 96; RESP 12; TEMP 36.9; O2SAT 96; BMI 21.5
== END 2024-04-17 11:52 | disposition home or self-care (01) ==
PROVIDERS: PCP Family Medicine; Visit Provider Family Medicine
DX: R21 Rash and other nonspecific skin eruption (principal)

== ENCOUNTER 2024-04-17 12:56 | Outpatient (REF) | payer OTHER, SELFPAY ==
[2024-04-17 14:14] LABS: Eosinophils Percent Auto 1.4 % (0-4); Hematocrit 35.1 % (37.0-47.0); Hemoglobin 11.8 g/dl (12.0-16.0); Lymphocytes Absolute Auto 0.4 X10*3/uL (1.2-4.9); Lymphocytes Percent Auto 29.1 % (20-40); MANUAL DIFF FLAG SCAN; Mean Corpuscular HGB Conc 33.6 g/dl (31.0-35.0); Mean Corpuscular Hemoglobin 31.6 pg (27.0-33.0); Mean Corpuscular Volume 94.1 fL (80.0-98.0); Monocytes Absolute Auto 0.2 X10*3/uL (0.1-1.2); Monocytes Percent Auto 13.5 % (2-11); Neutrophils Absolute Auto 0.8 x10*3/uL (2.0-8.3); Red Blood Count 3.73 X10*6/uL (4.20-5.50); Red Cell Distribution Width 14.3 % (11.0-16.0); SCAN SMEAR FLAG 1
[2024-04-17 14:37] LABS: White Blood Count 1.5 X10*3/uL (4.8-10.8)
[2024-04-17 14:41] LABS: Alanine Aminotransferase 36 U/L (0-31); Alkaline Phosphatase 85 U/L (39-117); Anion Gap 10 (12-20); Aspartate Amino Transferase 142 U/L (5-31); Blood Urea Nitrogen 5 mg/dL (9-16); Calcium 8.7 mg/dL (8.4-10.2); Carbon Dioxide 28 mmol/L (22-29); Chloride 105 mmol/L (96-108); Estimated Glomerular Filt Rate > 60; Glucose Random 91 mg/dL (60-115); Potassium 3.4 mmol/L (3.3-5.1); Sodium 140 mmol/L (135-145); Total Protein 8.1 g/dL (6.5-8.0)
[2024-04-17 14:46] LABS: Mean Platelet Volume 10.2 fL (9.4-12.3); Platelet Count 12 X10*3/uL (160-400)
[2024-04-17 14:48] LABS: SLIDE REVIEW VERIFIED
[2024-04-17 14:55] LABS: Erythrocyte Sedimentation Rate 17 MM/HR (0-20)
[2024-04-17 14:56] LABS: TSH reflex Free T4 0.58 uIU/mL (0.32-4.0)
[2024-04-18 19:28] LABS: CRP High Sensitivity 1.1 mg/L
[2024-04-22 13:39] LABS: Anti Nuclear Antibody Screen NEGATIVE (NEGATIVE)
== END 2024-04-17 12:57 | disposition home or self-care (01) ==
LOC: HO.WFDLDS 12:56
PROVIDERS: Visit Provider Family Medicine
DX: R21 Rash and other nonspecific skin eruption (principal); Z00.00 Encounter for general adult medical examination without abnormal findings
CPT/HCPCS: 36415; 80053; 84443; 85025; 85652; 86038; 86141; 99212

== ENCOUNTER 2024-04-22 08:26 | Outpatient (AMB) | payer OTHER, SELFPAY ==
[2024-04-22 08:29] VITALS: BP 117/60; PULSE 85; BMI 22.1
--- NOTE | 2024-04-22 08:29 | A.OFFVIS_ITS ---
Vital Signs 3 04/22/24 08:29 Height 5 ft 3 in Weight 124 lb 8 oz BMI 22.1 BP 117/60 Blood Pressure Location Lt brachial Position Sitting Pulse 85 Intake Visit Reasons: Rt breast Stereo Bx, cals x2 areas Intake Note: This patient presents for right breast Stereotactic biopsy for calcifications x2 areas. Pt c/o: occasional soreness right breast. Bonbon Dipper Required: No Accompanied by: Spouse Allergies No Known Allergies Allergy (Verified 04/22/24 08:41) HPI Comments Details: 53-year-old female patient presenting for evaluation of a recent mammogram and ultrasound performed on 03/27/2024 which revealed 2 areas of grouped calcifications which have increased in numbers, 1 located in the right retroareolar location and a 2nd located in the lower inner quadrant. Both areas were felt to be suspicious for malignancy and stereotactic guided core biopsy was recommended for each. [facility]. She reports some soreness in the breast but denies any palpable mass. She denies a previous history of breast problems or breast surgery. Menarche at age 14, with twin daughters when she was 31 years old. She denies hormone replacement therapy. Family history is negative for breast or ovarian cancer. Her mother was treated for rectal cancer with and now has a colostomy. She denies any palpable mass in the breast but does have some pain in the right breast assist with the around the nipple. Calculated Tyrer-Cuzick remaining lifetime risk of breast cancer 7.4%. PFSH Medical History Pancytopenia Easy bruising Thrombocytopenia Menopause Loss of balance Hypersplenism Cytopenia ASCUS with positive high risk HPV cervical Alcoholic liver disease Alcohol abuse Surgical History History of bilateral carpal tunnel release Family History Mother Cancer of rectum Father Hypertension Social History Household Members: Significant Other Housing: Apartment Alcohol intake: current Alcohol intake frequency: 3 or more drinks per day Alcohol type: beer and hard liquor Patient Tobacco Use Status: Never used Tobacco e-Cigarette/Vaping Use: Never Used Second Hand Smoke Exposure: Yes (Fiance vapes) service: No Current occupational status: employed 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/hazards: No Cognitive needs: No Hearing needs: No Vision needs: No Female Reproductive History Menstrual Age of Menarche: 14 Date of last menstrual period: 04/02/09 control method: none Menopause type: natural Total pregnancies: 1 Full term: 2 (twins) Date of Mammogram: 03/27/24 History of abnormal mammogram: Yes Other: 1 twin girls Review of Systems Const All systems reviewed & are unremarkable except as noted in HPI and below Denies chills, Denies fever(s), Denies headache(s), Denies poor appetite and Denies weakness ENT Denies headache(s) Card Denies chest pain, Denies irregular heart rhythm, Denies palpitations and Denies dyspnea Resp Denies cough, Denies excessive phlegm production and Denies dyspnea GI Denies abdominal pain, Denies bloating, Denies change in bowel habits, Denies constipation, Denies heartburn, Denies diarrhea, Denies nausea and Denies vomiting Denies urinary frequency and Denies nipple discharge Musc Denies back pain, Denies muscle weakness and Denies numbness Skin/Breast Denies breast skin changes, Reports breast pain, Denies breast mass, Denies changing lesions, Denies nipple discharge and Denies unusual bruising Neuro Denies headache(s), Denies numbness, Denies paresthesias and Denies weakness Psych Denies anxiety and Denies depression Endo Denies palpitations Rey/Lymph Denies lymphadenopathy Physical Exam Vital Signs: Last Vital Signs Pulse 85 04/22/24 08:29 BP 117/60 04/22/24 08:29 BMI result Body Mass Index 22.1 Const General: cooperative and no acute distress Nutritional Appearance: well nourished Orientation/consciousness: patient oriented x3 Limitations: no limitations HEENT Head: Yes normocephalic and Yes atraumatic Ears: hearing grossly normal bilaterally Chest Other: Left breast: No skin change, no nipple retraction, no nipple discharge, no palpable mass, no enlarged lymph nodes. Right breast: No skin change, no nipple retraction, no nipple discharge, no palpable mass, no enlarged lymph nodes Chest/axillae images: 2 1. Possible incision noted in the upper outer quadrant Macarena areolar Resp Effort & Inspection: normal respiratory effort, no audible wheezes, no cough and no respiratory distress Cardio Jugular venous distension: no JVD GI Inspection: Yes normal to inspection Skin Other: Warm, dry, no rash Neuro General: patient oriented x3 Extrem General: Yes no clubbing, cyanosis or edema Assessment & Plan Assessment & Plan (1) Abnormal mammogram of right breast: Code(s): R92.8 - Other abnormal and inconclusive findings on diagnostic imaging of breast Category: Medical Plan 53-year-old female patient presenting with a recent diagnostic mammogram and ultrasound which revealed two evolving cluster of calcifications in the right breast, 1 located in a periareolar location a 2nd in the lower inner quadrant both felt to be suspicious for malignancy. She is scheduled for a stereotactic guided core biopsy of the 2 leads on 04/24/2024. Examination today revealed no suspicious findings in either breast. I recommended a follow-up visit in 1 week to review the pathology results and discuss treatment options. She expressed understanding and agrees with the plan. Orders: Orders 2 MM stereotactic biopsy RT Today R92.8 - Other abnormal and inconclusive findings on diagnostic imaging of breast MM stereotactic biopsy ea add Today R92.8 - Other abnormal and inconclusive findings on diagnostic imaging of breast Coding Level of Care Code New Pt Level 4 (27304) Diagnoses Abnormal mammogram of right breast R92.8
== END 2024-04-22 08:56 | disposition home or self-care (01) ==
PROVIDERS: PCP Family Medicine; Visit Provider Surgery
DX: R92.8 Other abnormal and inconclusive findings on diagnostic imaging of breast (principal)
CPT/HCPCS: 99214

== ENCOUNTER → 2024-04-22 08:26 | Outpatient (BNVA) | payer OTHER, SELFPAY | PROVIDERS: PCP Family Medicine; Visit Provider Surgery | DX: R92.1 Mammographic calcification found on diagnostic imaging of breast (principal) | CPT/HCPCS: 99212 ==

== ENCOUNTER 2024-04-24 09:47 | Outpatient (REF) | payer OTHER, SELFPAY ==
--- NOTE | ~2024-04-24 | MM_ITS ---
EXAMINATION: STEREOTACTICALLY-GUIDED RIGHT BREAST BIOPSY at two sites right breast. CLINICAL INFORMATION: 2 groups of suspicious calcifications in the right breast. COMPARISON: Comparison is made with available priors. INFORMED CONSENT: After the details of the procedure, as well as the risks (including, but not limited to, bleeding, hematoma formation, and infection), benefits and alternatives (including doing nothing, short-interval follow up, and surgery) to the procedure were explained to the patient in detail and all of her questions were answered, informed written consent was obtained. TECHNIQUE/FINDINGS: A timeout was performed. The lesions intended for biopsy was identified stereotactically and targeted. The skin of the right breast was then cleansed with sterile solution. Site 1: Retrorareolar calcifications, anterior site. Using stereotactic guidance, aseptic technique, and 1% lidocaine with and without epinephrine for local anesthesia, a total of 14 cores were obtained through the targeted area with a 9-gauge vacuum-assisted Eviva core biopsy device from a superior approach. Specimen radiography reveals the targeted calcifications in the sampled tissue. At the completion of tissue sampling, a single top hat-shaped metallic clip was deposited at the biopsy site. Site 2: Grouped calcifications in the lower inner breast, posterior site. Using stereotactic guidance, aseptic technique, and 1% lidocaine with and without epinephrine for local anesthesia, a total of 12 cores were obtained through the targeted area with a 9-gauge vacuum-assisted Eviva core biopsy device from a inferior approach. Specimen radiography reveals the targeted calcifications in the sampled tissue. At the completion of tissue sampling, a single mini cork-shaped metallic clip was deposited at the biopsy site. Adequate sampling was achieved. The postprocedure 2-view direct digital mammogram reveals satisfactory positioning of the biopsy clips and postprocedural hematoma. The patient tolerated the procedure well and, after assuring adequate hemostasis, was discharged in good condition after reviewing postbiopsy breast care instructions. Final pathology results are pending. MM/MM stereotactic biopsy ea add IMPRESSION: 1. Uncomplicated stereotactically-guided core biopsy of the right breast at 2 sites. The 2-view direct digital postprocedure mammogram reveals satisfactory positioning of the biopsy clips. 2. Final pathology results are pending. A separate report with final recommendations will be issued once these results are made available. Electronically signed by: Kellie Dwyer DO 04/25/2024 01:14 PM EST RP
--- NOTE | ~2024-04-24 | MM_ITS ---
EXAMINATION: STEREOTACTICALLY-GUIDED RIGHT BREAST BIOPSY at two sites right breast. CLINICAL INFORMATION: 2 groups of suspicious calcifications in the right breast. COMPARISON: Comparison is made with available priors. INFORMED CONSENT: After the details of the procedure, as well as the risks (including, but not limited to, bleeding, hematoma formation, and infection), benefits and alternatives (including doing nothing, short-interval follow up, and surgery) to the procedure were explained to the patient in detail and all of her questions were answered, informed written consent was obtained. TECHNIQUE/FINDINGS: A timeout was performed. The lesions intended for biopsy was identified stereotactically and targeted. The skin of the right breast was then cleansed with sterile solution. Site 1: Retrorareolar calcifications, anterior site. Using stereotactic guidance, aseptic technique, and 1% lidocaine with and without epinephrine for local anesthesia, a total of 14 cores were obtained through the targeted area with a 9-gauge vacuum-assisted Eviva core biopsy device from a superior approach. Specimen radiography reveals the targeted calcifications in the sampled tissue. At the completion of tissue sampling, a single top hat-shaped metallic clip was deposited at the biopsy site. Site 2: Grouped calcifications in the lower inner breast, posterior site. Using stereotactic guidance, aseptic technique, and 1% lidocaine with and without epinephrine for local anesthesia, a total of 12 cores were obtained through the targeted area with a 9-gauge vacuum-assisted Eviva core biopsy device from a inferior approach. Specimen radiography reveals the targeted calcifications in the sampled tissue. At the completion of tissue sampling, a single mini cork-shaped metallic clip was deposited at the biopsy site. Adequate sampling was achieved. The postprocedure 2-view direct digital mammogram reveals satisfactory positioning of the biopsy clips and postprocedural hematoma. The patient tolerated the procedure well and, after assuring adequate hemostasis, was discharged in good condition after reviewing postbiopsy breast care instructions. Final pathology results are pending. MM/MM stereotactic biopsy RT IMPRESSION: 1. Uncomplicated stereotactically-guided core biopsy of the right breast at 2 sites. The 2-view direct digital postprocedure mammogram reveals satisfactory positioning of the biopsy clips. 2. Final pathology results are pending. A separate report with final recommendations will be issued once these results are made available. Electronically signed by: Kellie Dwyer DO 04/25/2024 01:14 PM [facility]
[2024-04-24] MEDS: Lidocaine HCl 1 % 20 ML VIAL 7 ML SUBCUT (12:19)
[2024-04-24] MEDS: Sodium Bicarbonate 8.4% 50 MEQ/50 ML VIAL SUBCUT (12:20)
[2024-04-24] MEDS: Lidocaine HCl 1%/Epi 1:100,000 10 ML VIAL 16 ML SUBCUT (12:21)
== END 2024-04-24 09:48 | disposition home or self-care (01) ==
LOC: HO.MAMMO 09:47
PROVIDERS: PCP Family Medicine; Visit Provider Surgery
DX: R92.8 Other abnormal and inconclusive findings on diagnostic imaging of breast (principal)
CPT/HCPCS: 19081; 19082; 88305; A4648; J2003; J2004

== ENCOUNTER → 2024-04-24 10:00 | Outpatient (BNV) | payer OTHER, SELFPAY | PROVIDERS: PCP Family Medicine; Visit Provider Internal Medicine | DX: R92.1 Mammographic calcification found on diagnostic imaging of breast (principal) | CPT/HCPCS: 19081; 19082 ==

== ENCOUNTER 2024-05-02 10:11 | Outpatient (AMB) | payer OTHER, SELFPAY ==
--- NOTE | 2024-05-02 10:11 | MHC.OFFVIS ---
Vital Signs 05/02/24 10:17 Height 5 ft 3 in Weight 123 lb BMI 21.8 BP 142/77 H Blood Pressure Location Lt brachial Position Sitting Pulse 101 H Intake Visit Reasons: Biopsy results Intake Note: Patient is seen in office for right breast Stereotactic biopsy RESULTS for calcifications x2 areas. 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 Both areas were felt to be suspicious for malignancy and stereotactic guided core biopsy was recommended for each. This has been scheduled at the [facility] on 04/24/2024. She reports some soreness in the breast but denies any palpable mass. She denies a previous history of breast problems or breast surgery. Menarche at age 14, with twin daughters when she was 31 years old. She denies hormone replacement therapy. Family history is negative for breast or ovarian cancer. Her mother was treated for rectal cancer with and now has a colostomy. She denies any palpable mass in the breast but does have some pain in the right breast assist with the around the nipple. Calculated Tyrer-Cuzick remaining lifetime risk of breast cancer 7.4%. She underwent a stereotactic guided core biopsy x2 of the right breast. Pathology revealed benign breast tissue with hyalinized stromal fibrosis and calcifications; no atypia or malignancy identified. The 2nd lesion revealed benign breast tissue with hyalinized fibroadenomatous change and coarse calcifications; no atypia or malignancy identified. Radiology recommended six-month follow-up diagnostic mammogram of the right breast. She reports significant bleeding and soreness following the procedure and still has small amount of bloody discharge from the 2 incisions. PFSH Medical History Pancytopenia Easy bruising Thrombocytopenia Menopause Loss of balance Hypersplenism Cytopenia ASCUS with positive high risk HPV cervical Alcoholic liver disease Alcohol abuse Surgical History History of bilateral carpal tunnel release Family History Mother Cancer of rectum Father Hypertension Social History Household Members: Significant Other Housing: Apartment Alcohol intake: current Alcohol intake frequency: 3 or more drinks per day Alcohol type: beer and hard liquor Patient Tobacco Use Status: Never used Tobacco e-Cigarette/Vaping Use: Never Used Second Hand Smoke Exposure: Yes (Fiance vapes) service: No Current occupational status: employed 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 Steri-Strips were removed and replaced with a new Steri-Strips. No palpable hematoma is appreciated. Resp Effort & Inspection: normal respiratory effort, no audible wheezes, no cough and no respiratory distress Extrem General: Yes no clubbing, cyanosis or edema Assessment & Plan Assessment & Plan (1) Abnormal mammogram of right breast: Code(s): R92.8 - Other abnormal and inconclusive findings on diagnostic imaging of breast Category: Medical Plan 54-year-old female patient with a suspicious finding on right mammogram now presenting status post stereotactic guided core biopsy x2 of the right breast. Pathology findings were benign and follow-up mammogram in 6 months is recommended. Patient expressed understanding and agrees with the plan. She will follow-up after the mammogram to review the results. She is welcome to call sooner for any new concerns. Orders: Orders MM diagnostic mammo unilat RT 10/29/24 R92.8 - Other abnormal and inconclusive findings on diagnostic imaging of breast Coding Level of Care Code Est Pt Level 3 (37339) Diagnoses Abnormal mammogram of right breast R92.8
[2024-05-02 10:17] VITALS: BP 142/77; PULSE 101; BMI 21.8
== END 2024-05-02 10:31 | disposition home or self-care (01) ==
PROVIDERS: PCP Family Medicine; Visit Provider Surgery
DX: R92.8 Other abnormal and inconclusive findings on diagnostic imaging of breast (principal)
CPT/HCPCS: 99213

== ENCOUNTER → 2024-05-02 10:11 | Outpatient (BNVA) | payer OTHER, SELFPAY | PROVIDERS: PCP Family Medicine; Visit Provider Surgery | DX: R92.8 Other abnormal and inconclusive findings on diagnostic imaging of breast (principal) | CPT/HCPCS: 99212 ==

== ENCOUNTER 2024-06-05 09:15 | Outpatient (AMB) | payer OTHER, SELFPAY ==
--- NOTE | 2024-06-05 09:24 | A.OFFVIS_ITS ---
Vital Signs 3 06/05/24 09:29 Height 5 ft 3 in Weight 123 lb BMI 21.8 BP 126/69 Blood Pressure Location Lt brachial Position Sitting Pulse 103 H Intake Visit Reasons: Swelling and hard spot (R) Breast Intake Note: Patient is seen in office for wound check, post right breast biopsy. Pt c/o: admits to swelling and hard lump in the incision area, bruising, uncomfortable when laying on it, denies redness, discharge Machine Finisher Required: No Network Support Manager: Network Support Manager Present Accompanied by: Family/Other Allergies No Known Allergies Allergy (Verified 06/05/24 09:24) Medication List - Last Reconciled 06/05/24 by Torito Jordan MD acetaminophen ER 650 mg PO Q8H PRN calcium carbonate 1,200 mg PO DAILY folic acid 1 mg PO DAILY magnesium citrate 100 mg PO BEDTIME multivitamin 1 tab PO DAILY naltrexone microspheres ER (Vivitrol) 380 mg IM Q4W prednisone 4 tabs daily for 4 days, 3 tabs daily for 2 days, 2 tabs daily for 2 days, 1 tab daily for 2 days PO daily; 10 days thiamine mononitrate (vit B1) 100 mg PO DAILY HPI Comments Details: 54-year-old female patient presenting for re-evaluation of her right breast which remains swollen with overlying bruising. She underwent stereotactic guided core biopsy x2 of the right breast on 04/24/2024. She now has an area of swelling and bruising in the area around the biopsy. She has some discomfort occasionally requires ibuprofen or Tylenol for pain. PFSH Medical History Pancytopenia Easy bruising Thrombocytopenia Menopause Loss of balance Hypersplenism Cytopenia ASCUS with positive high risk HPV cervical Alcoholic liver disease Alcohol abuse Surgical History History of bilateral carpal tunnel release Family History Mother Cancer of rectum Father Hypertension Social History Household Members: Significant Other Housing: Apartment Alcohol intake: current Alcohol intake frequency: 3 or more drinks per day Alcohol type: beer and hard liquor Patient Tobacco Use Status: Never used Tobacco e-Cigarette/Vaping Use: Never Used Second Hand Smoke Exposure: Yes (Fiance vapes) service: No Current occupational status: employed 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 Area of ecchymosis and firmness consistent with an underlying hematoma. Biopsy site is located above and below this hematoma. No evidence of skin necrosis or erythema is appreciated. Resp Effort & Inspection: normal respiratory effort Skin Other: Warm, dry, no rash Neuro General: patient oriented x3 Assessment & Plan Assessment & Plan (1) Hematoma of right breast: Code(s): N64.89 - Other specified disorders of breast Category: Medical Plan 54-year-old female patient returning with a hematoma of the right breast following a stereotactic guided core biopsy. This may have been aggravated by her pancytopenia/thrombocytopenia. Options include ultrasound with possible needle aspiration, non operative observation with warm compresses, or surgical drainage of the hematoma. After discussion of the options we decided to hold off on any workup at this time. Recommended warm compresses and observation. She will return in 1 month for repeat examination. Coding Level of Care Code Est Pt Level 3 (33746) Diagnoses Hematoma of right breast N64.89
[2024-06-05 09:29] VITALS: BP 126/69; PULSE 103; BMI 21.8
== END 2024-06-05 09:40 | disposition home or self-care (01) ==
PROVIDERS: PCP Family Medicine; Visit Provider Surgery
DX: N64.89 Other specified disorders of breast (principal)
CPT/HCPCS: 99213

== ENCOUNTER → 2024-06-05 09:15 | Outpatient (BNVA) | payer OTHER, SELFPAY | PROVIDERS: PCP Family Medicine; Visit Provider Surgery | DX: N64.89 Other specified disorders of breast (principal) | CPT/HCPCS: 99212 ==

== ENCOUNTER 2024-06-12 10:00 | Outpatient (AMB) | payer OTHER, SELFPAY ==
--- NOTE | 2024-06-12 10:00 | AM.OFFVISNUR ---
Vital Signs 06/12/24 10:17 BP 150/90 H Blood Pressure Location Rt brachial Position Sitting Respiration 19 Pulse 88 Pulse Source Pulse Oximeter Pulse Oximetry (%) 98 Oxygen Delivery Method Room Air Intake Visit Reasons: Vivitrol Injection Allergies No Known Allergies Allergy (Verified 06/05/24 09:24) Nursing Note Patient Presents for Vivitrol Injection. Current Dose 380mg . Given in the with RG no noted or stated complications. Denies any issues with previous injection. Denies symptoms, and denies any break through cravings. Will need to meet with provider next visit. Office Meds Vivitrol 380 mg intramuscular suspension,extended release Performing Provider: Shelli Mcmahan CNP Performing Location: [facility] Administered by: Preethi Hansen RN on 06/12/24 10:17 Dose Route Admin Location Dispensed Lot Number Expiration Date [facility] Heavy Equipment Mechanic 380 mg IM RG 380 mg [id number] 11/30/26 49765-505-29 [employer] Assessment & Plan Assessment & Plan Orders: Orders AMB Naltrexone Injection Patient Supplied (NC) Today F10.20 - Alcohol dependence, uncomplicated Coding
[2024-06-12 10:17] VITALS: BP 150/90; PULSE 88; RESP 19; O2SAT 98
== END 2024-06-12 10:42 | disposition home or self-care (01) ==
LOC: HO.HCC 10:01
PROVIDERS: PCP Family Medicine
DX: F10.20 Alcohol dependence, uncomplicated (principal)

== ENCOUNTER → 2024-06-12 10:00 | Outpatient (BNVA) | payer OTHER, SELFPAY | PROVIDERS: PCP Family Medicine | DX: F10.20 Alcohol dependence, uncomplicated (principal); Z51.81 Encounter for therapeutic drug level monitoring; Z79.899 Other long term (current) drug therapy | CPT/HCPCS: 96372; J2315 ==

== ENCOUNTER 2024-07-01 10:37 | Outpatient (AMB) | payer OTHER, SELFPAY ==
--- NOTE | 2024-07-01 10:39 | A.OFFVIS_ITS ---
Vital Signs 3 07/01/24 10:46 Height 5 ft 3 in Weight 123 lb BMI 21.8 BP 131/63 Blood Pressure Location Lt brachial Position Sitting Pulse 91 Intake Visit Reasons: 1 mth follow up Swelling and hard spot (R) Breast [facility] Note[facility], following hematoma of the right breast. Pt c/o:continued pain and sore int he right breast, breast is still bruised Stave And Bolt Equalizer Required: No Receivables Specialist: Receivables Specialist Present Accompanied by: Family/Other Allergies No Known Allergies Allergy (Verified 07/01/24 10:46) Medication List - Last Reconciled 07/01/24 by Torito Jordan MD acetaminophen ER 650 mg PO Q8H PRN calcium carbonate 1,200 mg PO DAILY folic acid 1 mg PO DAILY magnesium citrate 100 mg PO BEDTIME multivitamin 1 tab PO DAILY naltrexone microspheres ER (Vivitrol) 380 mg IM Q4W prednisone 4 tabs daily for 4 days, 3 tabs daily for 2 days, 2 tabs daily for 2 days, 1 tab daily for 2 days PO daily; 10 days thiamine mononitrate (vit B1) 100 mg PO DAILY HPI Comments Details: 54-year-old female patient presenting for re-evaluation of her right breast which remains swollen with overlying bruising. She underwent stereotactic guided core biopsy x2 of the right breast on 04/24/2024. She now has an area of persistent swelling and bruising in the area around the biopsy. She has some discomfort occasionally requires ibuprofen or Tylenol for pain. The previous bruising has subsequently subsided but the mass is still present. She finds the region very tender. PFSH Medical History Pancytopenia Easy bruising Thrombocytopenia Menopause Loss of balance Hypersplenism Cytopenia ASCUS with positive high risk HPV cervical Alcoholic liver disease Alcohol abuse Surgical History History of bilateral carpal tunnel release Family History Mother Cancer of rectum Father Hypertension Social History Household Members: Significant Other Housing: Apartment Alcohol intake: current Alcohol intake frequency: 3 or more drinks per day Alcohol type: beer and hard liquor Patient Tobacco Use Status: Never used Tobacco e-Cigarette/Vaping Use: Never Used Second Hand Smoke Exposure: Yes (Fiance vapes) service: No Current occupational status: employed 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 occupational 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 There is a palpable firmness in the upper inner quadrant consistent with a residual hematoma/seroma with no overlying redness in the skin to indicate abscess. Site is tender to palpation. Chest/axillae images: 2 1. Palpable mass, possible seroma/hematoma 2. Skin dimpling upper inner quadrant 3. Skin dimpling lower inner quadrant Resp Effort & Inspection: normal respiratory effort Skin Other: Warm, dry, no rash Neuro General: patient oriented x3 Assessment & Plan Assessment & Plan (1) Hematoma of right breast: Code(s): N64.89 - Other specified disorders of breast Category: Medical Plan 54-year-old female patient with a persistent area of swelling in the upper inner quadrant of the right breast following a needle core biopsy. Patient was still very symptomatic in is willing to undergo aspiration if a fluid collection is present. I recommended further evaluation with an ultrasound of the breast. She will follow-up after the study to review the results and discuss treatment options. Orders: Orders 2 US breast RT limited Today N64.89 - Other specified disorders of breast Coding Level of Care Code Est Pt Level 3 (26252) Diagnoses Hematoma of right breast N64.89
[2024-07-01 10:46] VITALS: BP 131/63; PULSE 91; BMI 21.8
== END 2024-07-01 11:10 | disposition home or self-care (01) ==
PROVIDERS: PCP Family Medicine; Visit Provider Surgery
DX: N64.89 Other specified disorders of breast (principal)
CPT/HCPCS: 99213

== ENCOUNTER → 2024-07-01 10:37 | Outpatient (BNVA) | payer OTHER, SELFPAY | PROVIDERS: PCP Family Medicine; Visit Provider Surgery | DX: N64.89 Other specified disorders of breast (principal) | CPT/HCPCS: 99212 ==

== ENCOUNTER 2024-07-14 10:46 | Outpatient (AMB) | payer OTHER, SELFPAY ==
--- NOTE | 2024-07-14 10:53 | MHC.OFFVIS ---
Vital Signs 07/14/24 11:10 Height 5 ft 3 in Weight 128 lb BMI 22.7 Pulse 89 Pulse Source Pulse Oximeter Pulse Oximetry (%) 97 Oxygen Delivery Method Room Air Intake Visit Reasons: MAT/ Vivitrol Injection Allergies No Known Allergies Allergy (Verified 07/14/24 11:10) HPI HPI MAT/ Vivitrol Injection: Details: She has been doing well with Vivitrol injection but mentions that it sometimes isnt enough to get through the month. PFSH Medical History Pancytopenia Easy bruising Thrombocytopenia Menopause Loss of balance Hypersplenism Cytopenia ASCUS with positive high risk HPV cervical Alcoholic liver disease Alcohol abuse Surgical History History of bilateral carpal tunnel release Family History Mother Cancer of rectum Father Hypertension Social History Household Members: Significant Other Housing: Apartment Alcohol intake: current Alcohol intake frequency: 3 or more drinks per day Alcohol type: beer and hard liquor Patient Tobacco Use Status: Never used Tobacco e-Cigarette/Vaping Use: Never Used Second Hand Smoke Exposure: Yes (Fiance vapes) service: No Current occupational status: employed 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/hazards: No Cognitive needs: No Hearing needs: No Vision needs: No Female Reproductive History Menstrual Age of Menarche: 14 Review of Systems Const All systems reviewed & are unremarkable except as noted in HPI and below Physical Exam Vital Signs: Last Vital Signs Pulse 89 07/14/24 11:10 Pulse Ox 97 07/14/24 11:10 Oxygen Delivery Method Room Air 07/14/24 11:10 BMI result Body Mass Index 22.7 Const General: cooperative Office Meds Vivitrol 380 mg intramuscular suspension,extended release Performing Provider: Jessica Santana MD Performing Location: [facility] Administered by: Jessica Santana MD on 07/14/24 14:08 Dose Route Admin Location Dispensed Lot Number Expiration Date [employer] Agronomy Specialist 380 mg IM left buttock 380 mg [id number] 10/30/26 63079-789-24 [facility] Results AMB 14 Panel Urine Drug Screen Urine Marijuana (THC) Negative Last Edit by Odaly Matt Ozuna, SALES ESTIMATOR on 07/14/24 11:12 Urine Cocaine Negative Last Edit by Kleber Ozuna CMA on 07/14/24 11:12 Urine Morphine Negative Last Edit by Kleber Ozuna CMA on 07/14/24 11:12 Urine Methamphetamine Negative Last Edit by Kleber Ozuan CMA on 07/14/24 11:12 Urine Amphetamine Negative Last Edit by Kleber Ozuna CMA on 07/14/24 11:12 Urine Benzodiazepine Negative Last Edit by Kleber Ozuna CMA on 07/14/24 11:12 Urine Barbiturates Negative Last Edit by Kleber Ozuna CMA on 07/14/24 11:12 Urine Methadone Negative Last Edit by Kleber Ozuna CMA on 07/14/24 11:12 Urine Buprenorphine Negative Last Edit by Kleber Ozuna CMA on 07/14/24 11:12 Urine Tricyclic Antidepressant Negative Last Edit by Kleber Ozuna CMA on 07/14/24 11:12 Urine MDMA Negative Last Edit by Kleber Ozuna CMA on 07/14/24 11:12 Urine Oxycodone Negative Last Edit by Kleber Ozuna CMA on 07/14/24 11:12 Urine Phencyclidine Negative Last Edit by Kleber Ozuna CMA on 07/14/24 11:12 Urine Propoxyphene Negative Last Edit by Kleber Ozuna CMA on 07/14/24 11:12 AMB Test Urine AMB Test Urine Negative Last Edit by Kleber Ozuna CMA on 07/14/24 11:14 Results Reviewed Results Reviewed: Laboratory Last Values [facility] Negative 07/14/24 11:11 POC Urine Buprenorphine Negative 07/14/24 11:11 POC Urine Morphine Negative 07/14/24 11:11 POC Urine Oxycodone Negative 07/14/24 11:11 POC Urine Methadone Negative 07/14/24 11:11 POC Urine Propoxyphene Negative 07/14/24 11:11 POC Urine Barbiturates Negative 07/14/24 11:11 POC U Tricyclic Antidpr Negative 07/14/24 11:11 POC Urine PCP Negative 07/14/24 11:11 POC Ur Amphetamines Negative 07/14/24 11:11 POC Ur Methamphetamine Negative 07/14/24 11:11 POC Urine MDMA Negative 07/14/24 11:11 POC Ur Benzodiazepine Negative 07/14/24 11:11 POC Urine Cocaine Negative 07/14/24 11:11 POC Ur Marijuana (THC) Negative 07/14/24 11:11 Assessment & Plan Assessment & Plan (1) Alcohol use disorder, severe, dependence: Comment: She tolerated injection ,but luer lock continued to turn but got injection Code(s): F10.20 - Alcohol dependence, uncomplicated Category: Medical Plan: Did give extra Naltrexone 50 mg po in case feels wearing off after 21 days and can see if earlier appointments say at 21 weeks can happen. Orders: Orders AMB 14 Panel Urine Drug Screen Today Z51.81 - Encounter for therapeutic drug level monitoring AMB HCG Urine Test Today Z32.02 - Encounter for test, result negative AMB Naltrexone Injection Patient Supplied (NC) Today F10.20 - Alcohol dependence, uncomplicated Medications: New naltrexone 50 mg PO DAILY 30 days 30 tabs 1RF naltrexone microspheres ER 380 mg IM Q4W 1 ea 5RF 30 days naltrexone 50 mg PO DAILY 30 tabs 1RF 30 days naltrexone microspheres ER 380 mg IM Q4W 1 ea 0RF Coding Level of Care Code Est Pt Level 3 (96297) Diagnoses Alcohol use disorder, severe, dependence F10.20
[2024-07-14 11:10] VITALS: PULSE 89; O2SAT 97; BMI 22.7
== END 2024-07-14 11:42 | disposition home or self-care (01) ==
LOC: HO.HID 10:46
PROVIDERS: PCP Family Medicine; Visit Provider Internal Medicine
DX: F10.20 Alcohol dependence, uncomplicated (principal)
CPT/HCPCS: 99213

== ENCOUNTER → 2024-07-14 10:46 | Outpatient (BNVA) | payer OTHER, SELFPAY | PROVIDERS: PCP Family Medicine; Visit Provider Internal Medicine | DX: F10.20 Alcohol dependence, uncomplicated (principal); Z51.81 Encounter for therapeutic drug level monitoring; Z79.899 Other long term (current) drug therapy | CPT/HCPCS: 96372; 99212; J2315 ==

== ENCOUNTER 2024-07-24 12:21 | Outpatient (REF) | payer OTHER, SELFPAY ==
--- NOTE | ~2024-07-24 | US_ITS ---
EXAMINATION: MM DIAGNOSTIC DIGITAL BREAST TOMOSYNTHESIS, LEFT CLINICAL INFORMATION: Patient had 2 benign stereotactic core needle biopsies of the right breast in April 2024 now has palpable lumps at both sites. COMPARISON: Mammography: Priors on PACS. TECHNIQUE: Digital breast tomosynthesis is performed in both the craniocaudal and mediolateral oblique views along with computer-aided detection (CAD). Synthesized 2D images are generated from the tomosynthesis. FINDINGS: The breasts are heterogeneously dense, which may obscure small masses (ACR BI-RADS breast composition Category c). Markers at 2 sites of palpable lumps upper outer breast area of previously biopsied benign calcifications and lower inner breast with an underlying marker clip and oval 17 mm focal asymmetry likely representing a postbiopsy hematoma. No suspicious calcifications or other abnormal findings. Targeted color Doppler ultrasound scanning in the area of palpable lump in the upper outer breast demonstrates normal fibronodular breast tissue. Targeted color Doppler ultrasound scanning at 5:00 4 7 m from the nipple area of palpable lump and previously benign biopsied calcifications demonstrates a post procedural hematoma measuring 20 x 12 x 19 mm which correlates with the oval mass and postbiopsy hematoma on mammography. US/US breast RT limited mamm only IMPRESSION: Probable postbiopsy hematoma in the right breast at 5:00 4 cm from the nipple correlating with the patient's palpable lump and benign stereotactic core needle biopsy. Recommend 6 month follow-up ultrasound for further evaluation and follow-up until resolution. ASSESSMENT: BI-RADS BI-RADS 3 - Probably benign finding(s) - 6 month follow-up suggested RECOMMENDATION: 6 Month F/U Results were discussed with the patient at time of visit. This patient's information was entered into a reminder system with a target due date for their next mammogram. Electronically signed by: Kellie Dwyer DO 07/24/2024 01:46 PM EDT
== END 2024-07-24 12:22 | disposition home or self-care (01) ==
LOC: HO.MAMMO 12:21
PROVIDERS: PCP Family Medicine; Visit Provider Surgery
DX: N64.89 Other specified disorders of breast (principal)
CPT/HCPCS: 76642; 77061; 77065

== ENCOUNTER → 2024-07-24 13:00 | Outpatient (BNV) | payer OTHER, SELFPAY | PROVIDERS: PCP Family Medicine; Visit Provider Internal Medicine | DX: N63.13 Unspecified lump in the right breast, lower outer quadrant (principal) | CPT/HCPCS: 76642; 77061; 77065 ==

== ENCOUNTER 2024-08-11 10:23 | Outpatient (AMB) | payer OTHER, SELFPAY ==
--- NOTE | 2024-08-11 10:44 | A.OFFVISCC_ITS ---
Vital Signs 08/11/24 10:45 BP 128/76 Blood Pressure Location Rt brachial Pulse 91 Pulse Source Pulse Oximeter Pulse Oximetry (%) 99 Oxygen Delivery Method Room Air Intake Visit Reasons: MAT Allergies No Known Allergies Allergy (Verified 07/14/24 11:10) HPI HPI MAT: Details: She is doing well on Vivitrol. She has no complaints. She is not drinking at all. Review of Systems Const All systems reviewed & are unremarkable except as noted in HPI and below Physical Exam Vital Signs: Last Vital Signs Pulse 91 08/11/24 10:45 BP 128/76 08/11/24 10:45 Pulse Ox 99 08/11/24 10:45 Oxygen Delivery Method Room Air 08/11/24 10:45 Const General: cooperative Office Meds Vivitrol 380 mg intramuscular suspension,extended release Performing Provider: Jessica Santana MD Performing Location: [facility] Administered by: Jessica Santana MD on 08/11/24 16:08 Dose Route Admin Location Dispensed Lot Number Expiration Date [facility] [place] [employer] Molder 380 mg IM left buttock 380 mg [id number] 12/30/26 18065-920-11 [employer] [facility] Medical History Pancytopenia Easy bruising Thrombocytopenia Menopause Loss of balance Hypersplenism Cytopenia ASCUS with positive high risk HPV cervical Alcoholic liver disease Alcohol abuse Surgical History History of bilateral carpal tunnel release Family History Mother Cancer of rectum Father Hypertension Social History Household Members: Significant Other Housing: Apartment Alcohol intake: current Alcohol intake frequency: 3 or more drinks per day Alcohol type: beer and hard liquor Patient Tobacco Use Status: Never used Tobacco e-Cigarette/Vaping Use: Never Used Second Hand Smoke Exposure: Yes (Fiance vapes) service: No Current occupational status: employed 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 Continue with PCP or GI continue follow liver. Orders: Orders AMB Naltrexone Injection - Practice Supplied Today F10.20 - Alcohol dependence, uncomplicated Medications: New Vivitrol ER (naltrexone microspheres) 380 mg IM Q4W 1 ea 0RF NS F10.20 - Alcohol dependence, uncomplicated
[2024-08-11 10:45] VITALS: BP 128/76; PULSE 91; O2SAT 99
== END 2024-08-11 11:33 | disposition home or self-care (01) ==
LOC: HO.HCC 10:24
PROVIDERS: PCP Family Medicine; Visit Provider Internal Medicine
DX: F10.20 Alcohol dependence, uncomplicated (principal)
CPT/HCPCS: 99213

== ENCOUNTER → 2024-08-11 10:23 | Outpatient (BNVA) | payer OTHER, SELFPAY | PROVIDERS: PCP Family Medicine; Visit Provider Internal Medicine | DX: F10.20 Alcohol dependence, uncomplicated (principal) | CPT/HCPCS: 96372; 99212; J2315 ==

== ENCOUNTER 2024-09-08 11:32 | Outpatient (AMB) | payer OTHER, SELFPAY ==
--- NOTE | 2024-09-08 12:13 | AM.OFFVISNUR ---
Vital Signs 09/08/24 12:14 BP 126/82 Blood Pressure Location Rt brachial Position Sitting Respiration 18 Pulse 103 H Pulse Source Pulse Oximeter Intake Visit Reasons: MAT/ Injection Allergies No Known Allergies Allergy (Verified 07/14/24 11:10) Nursing Note Mimi is here for 4 week AUD check in and Vivitrol injection. Mimi is alert, oriented, calm and cooperativen with appropriate affect. Mimi reports doing okay, taking it a day at a time she reports a significant reduction in alcohol consumption to a couple of times a week and 1-2 drinks at a time mostly in the days just prior to her injection, she was reminded that she can use the oral naltrexone as needed and prescribed. 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 Follow-up injection appointment scheduled for 4 weeks Office Meds Vivitrol 380 mg intramuscular suspension,extended release Performing Provider: Jessica Santana MD Performing Location: [facility] Administered by: Mikayla Williamson RN on 09/08/24 12:25 Dose Route Admin Location Dispensed Lot Number Expiration Date [facility] [employer] Plant [employer] 380 mg IM RG 380 mg [id number] 01/30/27 58839-639-30 [employer] Comments: Pt here for 4 week AUD check in and Vivitrol inj. Pt reports no issues with previous injection and tolerated injection well. Educated on s/s of infection, urged to call [facility] with any questions or concerns. Pt verbalized understanding. Follow up appt. made in 4 weeks. Assessment & Plan Assessment & Plan Orders: Orders AMB Naltrexone Injection Patient Supplied (NC) Today F10.20 - Alcohol dependence, uncomplicated Medications: New Vivitrol ER (naltrexone microspheres) 380 mg IM ONCE 1 ea 0RF NS F10.20 - Alcohol dependence, uncomplicated Coding
[2024-09-08 12:14] VITALS: BP 126/82; PULSE 103; RESP 18
== END 2024-09-08 12:49 | disposition home or self-care (01) ==
LOC: HO.HCC 11:32
PROVIDERS: PCP Family Medicine; Visit Provider Internal Medicine
DX: F10.20 Alcohol dependence, uncomplicated (principal)

== ENCOUNTER → 2024-09-08 11:32 | Outpatient (BNVA) | payer OTHER, SELFPAY | PROVIDERS: PCP Family Medicine; Visit Provider Internal Medicine | DX: F10.20 Alcohol dependence, uncomplicated (principal); Z79.899 Other long term (current) drug therapy | CPT/HCPCS: 96372; J2315 ==

== ENCOUNTER 2024-09-17 11:54 | Outpatient (AMB) | payer OTHER, SELFPAY ==
--- NOTE | 2024-09-17 11:56 | AM.OFFWIN_ITS ---
Intake Vital Signs 09/17/24 11:59 Height 5 ft 3 in Weight 124 lb BMI 22.0 BP 138/78 Blood Pressure Location Lt brachial Position Sitting Respiration 13 Pulse 97 Pulse Source Pulse Oximeter Temp 97.2 F Temp Source Oral Pulse Oximetry (%) 97 Oxygen Delivery Method Room Air Intake Visit Reasons: possible sinus infection Intake Note: Patient c/o watery eyes, runny nose, dizziness headache, face pressure, and headaches since Sunday Patient Tobacco Use Status: Never used Tobacco Auditor Medical Claims Required: No Allergies No Known Allergies Allergy (Verified 09/17/24 12:06) Medication List - Last Reconciled 09/17/24 by Jazmin Tate, MUSIC SOUND LIGHT TECHNICIAN-BC acetaminophen ER 650 mg PO Q8H PRN calcium carbonate 1,200 mg PO DAILY folic acid 1 mg PO DAILY magnesium citrate 100 mg PO BEDTIME multivitamin 1 tab PO DAILY naltrexone 50 mg PO DAILY 30 days naltrexone microspheres ER 380 mg IM Q4W 30 days naltrexone microspheres ER (Vivitrol) 380 mg IM Q4W Do you need a note to return to daycare/school/sports/work: No HPI HPI Comments History of Present Illness Details 54 y/o F here today w/ sinus complaints Sunday started w/ runny nose Sx progressed to sinus pressure, L ear pain and popping Heavy sensation in face and chills Denies fever, sore throat, cough. Did try otc allergy med w/o relief Denies itching of nose throat or eyes. Exam Awake alert NAD Sclera and conjunctiva clear bilat Nares mucoid d/c, turbinates pale and edematous, + sinus tenderness with palpation bilat maxillary and L frontal TM intact and clear R, Mild erythema on L MMM, pharynx WNL RRR LS CTAB Plan Augmentin BID x 7 w/ food Ok to cont allergy meds RTO if no improvement. PFSH Medical History Pancytopenia Easy bruising Thrombocytopenia Menopause Loss of balance Hypersplenism Cytopenia ASCUS with positive high risk HPV cervical Alcoholic liver disease Alcohol abuse Surgical History History of bilateral carpal tunnel release Family History Mother Cancer of rectum Father Hypertension Social History Household Members: Significant Other Housing: Apartment Alcohol intake: current Alcohol intake frequency: 3 or more drinks per day Alcohol type: beer and hard liquor Patient Tobacco Use Status: Never used Tobacco e-Cigarette/Vaping Use: Never Used Second Hand Smoke Exposure: Yes (Fiance vapes) service: No Current occupational status: employed 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 occupational exposures/hazards: No Cognitive needs: No Hearing needs: No Vision needs: No Female Reproductive History Menstrual Age of Menarche: 14 Physical Exam Vital Signs: Last Vital Signs Temp 97.2 F 09/17/24 11:59 Pulse 97 09/17/24 11:59 Resp 13 09/17/24 11:59 BP 138/78 09/17/24 11:59 Pulse Ox 97 09/17/24 11:59 Oxygen Delivery Method Room Air 09/17/24 11:59 BMI result Body Mass Index 22.0 Assessment & Plan Assessment & Plan (1) Acute bacterial sinusitis: Code(s): J01.90 - Acute sinusitis, unspecified; B96.89 - Other specified bacterial agents as the cause of diseases classified elsewhere Plan . Medications: New amoxicillin-pot clavulanate 875-125 mg 1 tab PO BID 14 tabs 0RF 7 days Coding Level of Care Code Est Pt Level 3 (29480) Diagnoses Acute bacterial sinusitis J01.90; B96.89
[2024-09-17 11:59] VITALS: BP 138/78; PULSE 97; RESP 13; TEMP 36.2; O2SAT 97; BMI 22.0
== END 2024-09-17 12:12 | disposition home or self-care (01) ==
LOC: HO.HMCFM 11:54
PROVIDERS: PCP Family Medicine; Visit Provider Nurse Practitioner Family
DX: J01.90 Acute sinusitis, unspecified (principal); B96.89 Other specified bacterial agents as the cause of diseases classified elsewhere

== ENCOUNTER → 2024-09-17 11:54 | Outpatient (BNVA) | payer OTHER, SELFPAY | PROVIDERS: PCP Family Medicine; Visit Provider Nurse Practitioner Family | DX: R42 Dizziness and giddiness (principal); J01.90 Acute sinusitis, unspecified; B96.89 Other specified bacterial agents as the cause of diseases classified elsewhere | CPT/HCPCS: 99212 ==

== ENCOUNTER 2024-10-02 11:30 | Outpatient (REF) | payer OTHER, SELFPAY ==
[2024-10-02 21:41] LABS: CT PCR NOT DETECTED (Not Detect.); NG PCR NOT DETECTED (Not Detect.)
== END 2024-10-02 11:31 | disposition home or self-care (01) ==
LOC: HO.LNP 11:30
PROVIDERS: PCP Family Medicine; Visit Provider Obstetrics & Gynecology
DX: Z01.411 Encounter for gynecological examination (general) (routine) with abnormal findings (principal); N93.0 Postcoital and contact bleeding; K74.60 Unspecified cirrhosis of liver; R79.1 Abnormal coagulation profile; R32 Unspecified urinary incontinence
CPT/HCPCS: 87491; 87591; 87626; 88175; 99212; 99386

== ENCOUNTER 2024-10-02 11:30 | Outpatient (AMB) | payer OTHER, SELFPAY ==
[2024-10-02 11:36] VITALS: BP 130/82; BMI 21.1
--- NOTE | 2024-10-02 11:36 | A.OFFVIS_ITS ---
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 Complaining of postcoital bleeding with the last few months in addition to urine incontinence. Last Pap/HPV was many years ago Last Mammogram was BI-RADS 3 in 07/25, the recommendation was to repeat in six- months, scheduled on 01/28/2025 Last Colonoscopy was 2 years ago at [facility] according to the patient, no records available, the recommendation was to repeat in 10 years [facility] Medical History Pancytopenia Easy bruising Thrombocytopenia Menopause Loss of balance Hypersplenism Cytopenia ASCUS with positive high risk HPV cervical Alcoholic liver disease Alcohol abuse Surgical History History of bilateral carpal tunnel release Family History Mother Cancer of rectum Father Hypertension Social History Household Members: Significant Other Housing: Apartment Alcohol intake: current Alcohol intake frequency: 3 or more drinks per day Alc ohol type: beer and hard liquor Patient Tobacco Use Status: Never used Tobacco e-Cigarette/Vaping Use: Never Used Second Hand Smoke Exposure: Yes (Fiance vapes) service: No Current occupational status: employed 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 occupational exposures/hazards: No Cognitive needs: No Hearing needs: No Vision needs: No Female Reproductive History Menstrual Age of Menarche: 14 Date of Mammogram: 07/24/24 Review of Systems Const All systems reviewed & are unremarkable except as noted in HPI and below Card Reports as per HPI Resp Reports as per HPI GI Reports as per HPI and Reports no additional complaints Reports as per HPI Physical Exam Vital Signs: BMI result Body Mass Index 21.1 Const General: cooperative, healthy appearing and comfortable Chest Chest palpation & inspection: normal inspection of the chest and normal palpation of entire chest wall Breast/axilla inspection: normal inspection of the breasts and normal inspection of the axillae Breast/axilla palpation: normal palpation of the breasts, normal palpation of the axillae and no axillary lymphadenopathy Resp Effort & Inspection: normal respiratory effort Auscultation: clear to auscultation bilaterally Percussion: percussion normal Cardio Palpation: normal PMI Rate: regular rate Rhythm: regular rhythm Heart sounds: no murmurs and no rubs Peripheral pulses: Peripheral pulses 2+ throughout GI Inspection: Yes normal to inspection Palpation (GI): Soft to palpation, nontender, no guarding, not rigid and No hepatosplenomegaly present Percussion: Yes normal to percussion Auscultation: normal bowel sounds Rectal Exam - Female: deferred General: Yes bladder normal to palpation External Female Exam: No lesion Speculum Exam - Vagina: normal appearance of the vagina, normal palpation, normal vaginal discharge and not erythematous Speculum Exam - Cervix: normal appearance of the cervix and normal palpation Bimanual exam- vagina & uterus: normal bimanual exam, normal palpation, uterine size normal, bladder normal to palpation, consistency normal and normal palpation Bimanual Exam- Adnexa, other: normal adnexae, no masses and no tenderness Assessment & Plan Assessment & Plan (1) Well woman exam: Comment: Liver cirrhosis with elevated PT Code(s): Z01.419 - Encounter for gynecological examination (general) (routine) without abnormal findings Category: Medical Plan: Co testing done. Counseled the patient about the recommended dietary allowance of 1200 mg of Calcium & 600 IU of vitamin D. Mammogram scheduled on 01/28/2025, the patient is aware. The patient was referred to GI for screening colonoscopy . The patient was instructed to perform monthly self-breast exams and schedule annual exam in a year. All questions answered and the patient verbalized understanding. (2) Postcoital bleeding: Code(s): N93.0 - Postcoital and contact bleeding Category: Medical Plan: Discussed with the patient the differential diagnosis of post coital bleeding with normal pelvic exam including but not limited to, endometrial hyperplasia, cancer, polyps and other causes; co testing done, recommended ultrasound to measure the endometrial stripe; discussed with the patient that if the endometrial thickness is 4 mm or less the negative predictive value of endometrial pathology is 99%, otherwise If endometrial thickness is more than 4 mm will proceed with endometrial sampling versus hysteroscopy D&C polypectomy depending on the ultrasound findings. Instructed the patient to schedule an ultrasound with a follow-up appointment in 2 weeks. All questions answered, the patient verbalized understanding and agreed with the plan. This note was generated with a voice recognition program. Some errors may have been overlooked during the review of this note. Sometimes these errors may affect the content or meaning of a given sentence. (3) Urine incontinence: Code(s): R32 - Unspecified urinary incontinence Category: Medical Plan: Discussed with the patient the different types of Urine incontinence, stress urinary incontinence, intrinsic sphincter deficiency, overactive bladder and its work up. We will refer to Urology. All questions answered, the patient verbalized understanding. Orders: Orders Pap Smear Today Z01.419 - Encounter for gynecological examination (general) (routine) without abnormal findings CT NG by PCR Vag/Cerv Today Z01.419 - Encounter for gynecological examination (general) (routine) without abnormal findings HPV High risk Today Z01.419 - Encounter for gynecological examination (general) (routine) without abnormal findings Referrals Urology Referral R32 - Unspecified urinary incontinence Coding Level of Care Code New Pt Level 3 (28597) New Pt Prev Care 40-64y(15132) Diagnoses Well woman exam Z01.419 Postcoital bleeding N93.0 Urine incontinence R32
== END 2024-10-02 12:00 | disposition home or self-care (01) ==
LOC: HO.HWS 11:31
PROVIDERS: PCP Family Medicine; Visit Provider Obstetrics & Gynecology
DX: Z01.419 Encounter for gynecological examination (general) (routine) without abnormal findings (principal); N93.0 Postcoital and contact bleeding; R32 Unspecified urinary incontinence
CPT/HCPCS: 99213; 99386; 99459

== ENCOUNTER 2024-11-12 14:44 | Outpatient (REF) | payer OTHER, SELFPAY ==
--- NOTE | ~2024-11-12 | US_ITS ---
EXAMINATION: US PELVIS TRANSABDOMINAL AND TRANSVAGINAL HISTORY: N93.0 - Postcoital and contact bleeding COMPARISON: There are no prior studies available for comparison. TECHNIQUE: Transabdominal and endovaginal real-time 2D duffy-scale ultrasound was performed. FINDINGS: Uterus: The uterus is normal in size, measuring 5.0 x 2.7 x 3.2 cm. Myometrium has a normal echotexture. No fibroids are identified. Endometrium: The endometrial stripe measures 1 mm in thickness. Right ovary: The right ovary measures 1.5 x 1.0 x 1.1 cm. The right ovary is normal in size and echotexture. Left ovary: The left ovary measures 2.3 x 0.7 x 1.1 cm. The left ovary is normal in size and echotexture. Pelvic fluid: none. There are multiple prominent pelvic vessels which can be seen in the setting of pelvic congestion syndrome. US/US pelvic and transvaginal IMPRESSION: Prominent pelvic vessels which can be seen in the setting of pelvic congestion syndrome. Otherwise unremarkable pelvic ultrasound. Electronically signed by: Hossein Costello MD 11/12/2024 03:30 PM EDT
== END 2024-11-12 14:45 | disposition home or self-care (01) ==
LOC: HO.US 14:44
PROVIDERS: PCP Family Medicine; Visit Provider Obstetrics & Gynecology
DX: N93.0 Postcoital and contact bleeding (principal)
CPT/HCPCS: 76830; 76856

== ENCOUNTER → 2024-11-12 14:46 | Outpatient (BNV) | payer OTHER, SELFPAY | PROVIDERS: PCP Family Medicine; Visit Provider Radiology Diagnostic Radiology | DX: N93.0 Postcoital and contact bleeding (principal); N94.89 Other specified conditions associated with female genital organs and menstrual cycle | CPT/HCPCS: 76830; 76856 ==

== ENCOUNTER 2024-11-27 12:25 | Outpatient (AMB) | payer OTHER, SELFPAY ==
--- NOTE | 2024-11-27 12:26 | A.OFFVIS_ITS ---
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 Myometrium has a normal echotexture. No fibroids are identified. Endometrium: The endometrial stripe measures 1 mm in thickness. Right ovary: The right ovary measures 1.5 x 1.0 x 1.1 cm. The right ovary is normal in size and echotexture. Left ovary: The left ovary measures 2.3 x 0.7 x 1.1 cm. The left ovary is normal in size and echotexture. Pelvic fluid: none. There are multiple prominent pelvic vessels which can be seen in the setting of pelvic congestion syndrome. Last co testing in 10/24 was negative PFSH Medical History Pancytopenia Easy bruising Thrombocytopenia Menopause Loss of balance Hypersplenism Cytopenia ASCUS with positive high risk HPV cervical Alcoholic liver disease Alcohol abuse Surgical History History of bilateral carpal tunnel release Family History Mother Cancer of rectum Father Hypertension Social History Household Members: Significant Other Housing: Apartment Alcohol intake: current Alcohol intake frequency: 3 or more drinks per day Alcohol type: beer and hard liquor Patient Tobacco Use Status: Never used Tobacco e-Cigarette/Vaping Use: Never Used Second Hand Smoke Exposure: Yes (Fiance vapes) service: No Current occupational status: employed 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 hysteroscopy D&C) & the risks were discussed with the patient including but not limited: pain, uterine perforation, bleeding, infection, possible injury to bladder, bowel, ureter, possible need for blood transfusion with all its possible risks. The patient verbalized understanding all questions answered and signed consent. The patient was placed into the dorsal lithotomy position; a speculum was inserted in the vagina. Using aseptic technique for the procedure, the cervix was cleansed with Betadine. The anterior lip of the cervix was grasped with a single tooth tenaculum. The uterus was sounded to 7 cm with a 4 mm Pipelle was used. ECC was done afterward. Tissues samples were obtained and placed in formalin, in a patient labeled container and sent to the pathology department. At the end of the procedure, there was minimal bleeding noted The patient tolerated the procedure well and was discharged in good condition with the following instructions: Nothing in the vagina until the bleeding stops. No sex until the bleeding stops, to call if any of the following occurs: fever (>100.4), flu-like symptoms, abdominal pain, heavy bleeding, four smelling vaginal discharge. The patient was instructed to schedule a Follow up appointment in 2 weeks to discuss pathology results of the biopsy and treatment options. This note was generated with a voice recognition program. Some errors may have been overlooked during the review of this note. Sometimes these errors may affect the content or meaning of a given sentence. [id number] Biopsy Assessment & Plan Assessment & Plan (1) Postcoital bleeding: Code(s): N93.0 - Postcoital and contact bleeding Category: Medical Plan: Discussed with the patient the results of ultrasound showing 1 mm endometrial thickness but since postcoital bleeding is recurrent, recommend ECC with EMB. ECC/EMB done, see procedure note Orders: Orders AMB Endometrial Biopsy Today N93.0 - Postcoital and contact bleeding Coding Level of Care Code Procedure Only Diagnoses Postcoital bleeding N93.0 CPT Codes Endometrial Biopsy - CPT: 94623-[id number] Biopsy ([id number]) Comment With ECC
[2024-11-27 12:27] VITALS: BMI 21.1
== END 2024-11-27 13:02 | disposition home or self-care (01) ==
LOC: HO.HWS 12:25
PROVIDERS: PCP Family Medicine; Visit Provider Obstetrics & Gynecology
DX: N93.0 Postcoital and contact bleeding (principal)
CPT/HCPCS: 58100

== ENCOUNTER 2024-11-27 12:25 | Outpatient (REF) | payer OTHER, SELFPAY | END 2024-11-27 12:26 | disposition home or self-care (01) | LOC: HO.LNP 12:25 | PROVIDERS: PCP Family Medicine; Visit Provider Obstetrics & Gynecology | DX: N93.0 Postcoital and contact bleeding (principal) | CPT/HCPCS: 58100; 88305 ==

== ENCOUNTER 2024-12-09 10:44 | Outpatient (AMB) | payer OTHER, SELFPAY ==
--- NOTE | 2024-12-09 10:54 | MHC.OFFVIS ---
Intake Visit Reasons: urinary incontinence Intake Note: Patient is present for URINARY INCONTINENCE Urology Medication:NONE Antibiotic Allergy:AMOXICILLIN Blood Thinner:NONE TODAY'S PVR: 12ML'S Stock Roller Required: No Allergies amoxicillin Allergy (Intermediate, Verified 12/09/24 11:24) Vomiting Medication List - Last Reconciled 12/09/24 by PRINCESS Johnson calcium carbonate 1,200 mg PO DAILY magnesium citrate 100 mg PO BEDTIME multivitamin 1 tab PO DAILY HPI Comments Details: Mimi is a very pleasant 54-year-old female patient of Dr. Molina. She has a past medical history of pancytopenia, thrombocytopenia, hypersplenism, alcohol liver disease, and alcohol abuse. She presents to the office today as a new patient for ongoing lower urinary tract symptoms. In discussion with the patient today she reports a longstanding history since childhood of ongoing urinary urgency and frequency. She reports previously following up with her continuous improvement black belt many years ago and being told everything was within normal limits however feels symptoms have been affecting activities of daily living. She describes having days where she utilizes the bathroom over 25 times. She discusses she also experiences nocturia up to 4 times per night. In office urinalysis results reviewed with the patient today. PVR 12 mL. We did discussed at length potential causes of lower urinary tract symptoms she is experiencing as well as further treatment options and risks and benefits of these treatment options. Printed information was provided. We also discussed obtaining bladder diary for further assessment evaluation. She denies hematuria, dysuria, foul smelling urine, changes to urinary stream, flank pain, fever, and or chills. Discussion Notes I discussed with the patient the potential diagnosis of overactive bladder, considering her lifelong symptoms of frequent urination and nocturia. We reviewed bladder triggers and irritants. I explained the normal findings from her urinalysis and postvoid residual. We discussed further diagnostic options, including a renal and bladder ultrasound, pelvic floor therapy, and potential pharmacological treatments. I provided information on pelvic floor therapy and its benefits, as well as the possibility of urodynamic testing if symptoms persist. The patient was advised to maintain a bladder diary to monitor fluid intake and urinary output for a few days. PFSH Medical History Pancytopenia Easy bruising Thrombocytopenia Menopause Loss of balance Hypersplenism Cytopenia ASCUS with positive high risk HPV cervical Alcoholic liver disease Alcohol abuse Surgical History History of bilateral carpal tunnel release Family History Mother Cancer of rectum Father Hypertension Social History Household Members: Significant Other Housing: Apartment Alcohol intake: current Alcohol intake frequency: 3 or more drinks per day Alcohol type: beer and hard liquor Patient Tobacco Use Status: Never used Tobacco e-Cigarette/Vaping Use: Never Used Second Hand Smoke Exposure: Yes (Fiance vapes) service: No Current occupational status: employed 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[employer] Current occupational exposures/hazards: No Cognitive needs: No Hearing needs: No Vision needs: No Female Reproductive History Menstrual Age of Menarche: 14 Review of Systems Const All systems reviewed & are unremarkable except as noted in HPI and below Physical Exam Const General: cooperative, comfortable, no acute distress, well developed, alert and awake Orientation/consciousness: patient oriented x3 Limitations: no limitations HEENT Head: Yes normal to inspection, Yes normocephalic and Yes atraumatic Ears: hearing grossly normal bilaterally Eyes General: appearance normal, both eyes and all related structures Neck Neck: Yes normal visual inspection and Yes trachea midline Chest Chest palpation & inspection: normal inspection of the chest Resp Effort & Inspection: normal respiratory effort and able to speak in complete sentences Cardio Rate: regular rate GI Inspection: Yes normal to inspection General: Yes no CVA tenderness Back/Spine/Pelvis Back: no CVA tenderness Skin General skin exam: no rashes or lesions noted Neuro General: patient oriented x3 Extrem General: Yes normal to inspection Psych Appearance: grossly normal and well kempt Mental Status: mental status grossly normal Speech and movement: Normal speech and movement present and Clear speech present Affect: normal affect Attitude: cooperative Thought process: Normal thought process present Thought content: Normal thought content present Insight: Fair insight present (Psych) Judgement: Fair judgement present (Psych) Office Procedures Post Void Residual Post Residual Void Post Void Residual (PVR): 12 26987-Afqx Void Residual by ultrasound Results AMB Urinalysis, Automated UA Leukoctes 0 Catracho/uL Last Edit by CITLALY Vallecillo on 12/09/24 11:07 UA Nitrite Negative Last Edit by CITLALY Vallecillo on 12/09/24 11:07 UA Urobilinogen 0.2 mg/dL Last Edit by Dayne Baron [facility] on 12/09/24 11:07 UA Protein 0 mg/dL Last Edit by Dayne Baron [facility] on 12/09/24 11:07 UA pH 6.0 Last Edit by Dayne Baron [facility] on 12/09/24 11:07 UA Blood 0 Elvin/uL Last Edit by Dayne Baron, [facility] on 12/09/24 11:07 UA Specific [place] 1.010 Last Edit by Dayne Baron [facility] on 12/09/24 11:07 UA Ketone Negative Last Edit by Dayne Baron [facility] on 12/09/24 11:07 UA Bilirubin 0 mg/dL Last Edit by Dayne Baron [facility] on 12/09/24 11:07 UA Glucose 0 mg/dL Last Edit by Dayne Baron [facility] on 12/09/24 11:07 Results Reviewed Results Reviewed: Laboratory Last Values Urine pH (Auto) 6.0 12/09/24 11:06 Specific [place] (Auto) 1.010 12/09/24 11:06 Urine Protein (Auto) 0 mg/dL 12/09/24 11:06 Glucose (UA)(Auto) 0 mg/dL 12/09/24 11:06 Urine Ketones (Auto) Negative 12/09/24 11:06 Urine Blood (Auto) 0 Elvin/uL 12/09/24 11:06 Urine Nitrite (Auto) Negative 12/09/24 11:06 Urine Bilirubin (Auto) 0 mg/dL 12/09/24 11:06 Urine Urobilinogen (Auto) 0.2 mg/dL 12/09/24 11:06 Leukocyte Esterase (Auto) 0 Catracho/uL 12/09/24 11:06 Assessment & Plan Assessment & Plan (1) Urinary urgency: Code(s): R39.15 - Urgency of urination Category: Medical (2) Increased urinary frequency: Code(s): R35.0 - Frequency of micturition Category: Medical Plan In office urinalysis results with the patient today; as noted above. PVR 12 mL. Will obtain retroperitoneal ultrasound for further assessment evaluation. We did discussed potential causes of lower urinary tract symptoms as well as further treatment options and risks and benefits of these treatment options. Information provided regarding bladder diary. All questions were answered. We discussed bladder triggers and irritants. Follow-up in 1-3 months with imaging to be completed prior; or sooner with any issues, concerns, and or questions. Orders: Orders US retroperitoneal comp Today R35.0 - Frequency of micturition, R39.15 - Urgency of urination AMB Urinalysis Automated Today Z13.9 - Encounter for screening, unspecified Patient Instructions: The patient had an opportunity to ask questions regarding the treatment plan. All questions were answered. Physical exam, labs, and imaging were discussed and reviewed in detail. As well as risks, benefits, and discussion of treatment choices. No major barriers to understanding were identified. The patient expressed understanding and agreement with the above treatment plan. The patient was made aware they should contact our office by phone for worsening of their current condition, the appearance of new symptoms, or with any questions or concerns. Compliance is encouraged with any medications and follow up testing that is ordered. It is a privilege to be allowed the opportunity to participate in? your urological care.? Again, if you have any questions or concerns If you have any questions or concerns please do not hesitate to contact me. The office is [phone]. This note is constructed using voice recognition software. While every effort has been made to ensure accuracy dog trainer errors may have been included. Yours sincerely, PRINCESS Johnson Coding Level of Care Code New Pt Level 3 (59516) Diagnoses Urinary urgency R39.15 Increased urinary frequency R35.0 CPT Codes Post Residual Void - PVR CPT Code: 48785-Lqfh Void Residual by ultrasound ([id number])
== END 2024-12-09 11:31 | disposition home or self-care (01) ==
LOC: HO.HUSH 10:45
PROVIDERS: PCP Family Medicine; Visit Provider Nurse Practitioner Family
DX: R39.15 Urgency of urination (principal); R35.0 Frequency of micturition; Z13.9 Encounter for screening, unspecified
CPT/HCPCS: 99203

== ENCOUNTER → 2024-12-09 10:44 | Outpatient (BNVA) | payer OTHER, SELFPAY | PROVIDERS: PCP Family Medicine; Visit Provider Nurse Practitioner Family | DX: R39.15 Urgency of urination (principal); R35.0 Frequency of micturition; F10.20 Alcohol dependence, uncomplicated; Z13.9 Encounter for screening, unspecified | CPT/HCPCS: 51798; 81003; 99202 ==

== ENCOUNTER 2024-12-18 07:45 | Outpatient (AMB) | payer OTHER, SELFPAY ==
--- NOTE | 2024-12-18 07:48 | MHC.OFFVIS ---
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 The patient has no complaints, no vaginal bleeding, no feverishness chills or abdominal pain. The following workup was done: Endometrial/endocervical biopsy done, the pathology report showed the following: A. Endometrium, biopsy: Superficial strips of endometrium and rare endocervical epithelium within normal limits; mucoinflammatory material; no atypia identified. B. Endocervix, curettage: Scant fragments of endocervical and squamous epithelium within normal limits; mucoinflammatory material; no atypia identified Pelvic ultrasound showed the following: Uterus: The uterus is normal in size, measuring 5.0 x 2.7 x 3.2 cm. Myometrium has a normal echotexture. No fibroids are identified. Endometrium: The endometrial stripe measures 1 mm in thickness. Right ovary: The right ovary measures 1.5 x 1.0 x 1.1 cm. The right ovary is normal in size and echotexture. Left ovary: The left ovary measures 2.3 x 0.7 x 1.1 cm. The left ovary is normal in size and echotexture. Pelvic fluid: none. There are multiple prominent pelvic vessels which can be seen in the setting of pelvic congestion syndrome. GC/CT was negative Co testing was negative PFSH Medical History Pancytopenia Easy bruising Thrombocytopenia Menopause Loss of balance Hypersplenism Cytopenia ASCUS with positive high risk HPV cervical Alcoholic liver disease Alcohol abuse Surgical History History of bilateral carpal tunnel release Family History Mother Cancer of rectum Father Hypertension Social History Household Members: Significant Other Housing: Apartment Alcohol intake: current Alcohol intake frequency: 3 or more drinks per day Alcohol type: beer and hard liquor Patient Tobacco Use Status: Never used Tobacco e-Cigarette/Vaping Use: Never Used Second Hand Smoke Exposure: Yes (Fiance vapes) service: No Current occupational status: employed 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 occupational 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/hazards: No Cognitive needs: No Hearing needs: No Vision needs: No Female Reproductive History Menstrual Age of Menarche: 14 Review of Systems Const All systems reviewed & are unremarkable except as noted in HPI and below Reports as per HPI and Reports no additional complaints GI Reports no additional complaints Reports no additional complaints Physical Exam Vital Signs: Last Vital Signs BP 114/66 12/18/24 07:51 BMI result Body Mass Index 21.1 Assessment & Plan Assessment & Plan (1) Postcoital bleeding: Code(s): N93.0 - Postcoital and contact bleeding Category: Medical Plan: Discussed with the patient the results of the workup including EMB/ECC, co testing, GC and chlamydia and pelvic ultrasound. Discussed with the patient the sensitivity, specificity, positive and negative predictive value, of endometrial biopsy in detecting endometrial pathology including but not limited to endometrial hyperplasia, cancer and other pathology; instructed the patient to call in case post co bleeding recurs, the next step will be to proceed with further evaluation to rule out endometrial pathology. All questions answered and the patient verbalized understanding and agreed with the plan. Coding Level of Care Code Est Pt Level 3 (95180) Diagnoses Postcoital bleeding N93.0
[2024-12-18 07:51] VITALS: BP 114/66; BMI 21.1
== END 2024-12-18 08:09 | disposition home or self-care (01) ==
LOC: HO.HWS 07:45
PROVIDERS: PCP Family Medicine; Visit Provider Obstetrics & Gynecology
DX: N93.0 Postcoital and contact bleeding (principal)
CPT/HCPCS: 99213

== ENCOUNTER → 2024-12-18 07:45 | Outpatient (BNVA) | payer OTHER, SELFPAY | PROVIDERS: PCP Family Medicine; Visit Provider Obstetrics & Gynecology | DX: N93.0 Postcoital and contact bleeding (principal) | CPT/HCPCS: 99212 ==

== ENCOUNTER → 2025-01-28 14:00 | Outpatient (BNV) | payer OTHER, SELFPAY | PROVIDERS: PCP Family Medicine; Visit Provider Internal Medicine | DX: R92.8 Other abnormal and inconclusive findings on diagnostic imaging of breast (principal) | CPT/HCPCS: 76642; 77062; 77066 ==

== ENCOUNTER 2025-01-28 14:02 | Outpatient (REF) | payer OTHER, SELFPAY ==
--- NOTE | ~2025-01-28 | MM_ITS ---
EXAMINATION: MM DIAGNOSTIC DIGITAL BREAST TOMOSYNTHESIS, BILATERAL Right limited ultrasound. CLINICAL INFORMATION: Recent benign stereotactic core needle biopsies of the right breast at 2 sites with benign pathology. 6 month follow-up recommended for focal asymmetry in the right breast and retroareolar calcifications. Patient has right breast pain 8:00. COMPARISON: Mammography: Comparison is made with relevant prior exams. TECHNIQUE: Digital breast mammography with tomosynthesis is performed in both the craniocaudal and mediolateral oblique views along with computer-aided detection (CAD). FINDINGS: The breasts are heterogeneously dense, which may obscure small masses. Right: Retroareolar calcifications are not significantly changed from priors marker clip anterior depth in the upper central breast just superior liver specimen radiograph did demonstrate calcifications within the biopsy and pathology was benign. The previously seen focal asymmetry in the lower inner breast at site of prior stereotactic core needle biopsy with benign pathology is no longer seen and likely represented a postprocedural hematoma. Previously seen focal asymmetry upper central is no longer seen and likely represented overlapping breast tissue. Targeted color Doppler ultrasound scanning in the right breast area of previously seen hypoechoic area at 5:00 demonstrates normal fibroglandular breast tissue. Targeted color Doppler ultrasound scanning from 8-10 o'clock in the area the patient's pain demonstrates normal fibroglandular breast tissue. Left: No suspicious masses or other abnormal findings. Retroareolar amorphous calcifications or increased from 2022 Results are provided to the patient at time of visit by the technologist. MM/MM tomosynthesis diagnostic BI IMPRESSION: Left: Retroareolar calcifications are increased from 2022. Recommend histology was stereotactic core needle biopsy at this time for confirmation. The findings and recommendations were discussed with patient the procedure will be scheduled. Right: 1. Retroareolar calcifications not significantly changed from prior's. Recommend six-month follow-up with magnification views to demonstrate stability. 2. No mammographic or sonographic abnormal finding to account for the patient's bilateral breast pain. Recommend clinical evaluation follow-up. 3. Previously seen hypoechoic area and focal asymmetry are no longer seen and represented post procedural hematoma which is now resolved. ASSESSMENT: BI-RADS Category 4: Suspicious RECOMMENDATION: Biopsy recommended Electronically signed by: Kellie Dwyer DO 01/28/2025 05:03 PM EDT
== END 2025-01-28 14:03 | disposition home or self-care (01) ==
LOC: HO.MAMMO 14:02
PROVIDERS: PCP Family Medicine; Visit Provider Surgery
DX: R92.8 Other abnormal and inconclusive findings on diagnostic imaging of breast (principal); N64.89 Other specified disorders of breast
CPT/HCPCS: 76642; 77062; 77066

== ENCOUNTER 2025-02-03 07:42 | Outpatient (REF) | payer OTHER, SELFPAY ==
--- NOTE | ~2025-02-03 | MM_ITS ---
EXAMINATION(s)/PROCEDURE(s): 1. STEREOTACTIC TOMOSYNTHESIS-GUIDED VACUUM-ASSISTED BREAST BIOPSY, LEFT 2. SPECIMEN RADIOGRAPH, LEFT 3. POST PROCEDURE DIGITAL MAMMOGRAM, LEFT CLINICAL INFORMATION: -Patient is status post diagnostic mammogram on January 28, 2025 that recommended stereotactic needle core biopsy of left retroareolar calcifications. -Patient is status post stereotactic needle core biopsy of 2 sides on the right breast on April 24, 2024, both with benign results. The calcifications associated with the top hat clip/anterior were recommended for 6 month follow-up on the left diagnostic mammogram on January 28, 2025. COMPARISON: Diagnostic mammogram on January 28, 2025. TECHNIQUE/PROCEDURE: Informed consent was obtained from the patient after discussion of the benefits, risks, and alternatives to biopsy today. Patient appeared to understand. Gave opportunity for questions. Patient signed consent form. BIOPSY TABLE: [employer] Affirm Prone Biopsy System. LESION: Regional retroareolar calcifications, in the lateral breast. LOCAL ANESTHESIA: 15 cc of lidocaine 1% buffered with Sodium Bicarbonate 8.4% (9ml:1ml ratio). 5 cc of lidocaine 1% with epinephrine. DERMATOTOMY: Single skin jewel dermatotomy performed. NEEDLE: Eviva 9-gauge vacuum assisted core biopsy device. APPROACH: Lateral. TARGETING: Digital breast tomosynthesis used for targeting. CORES: 12. CLIP: [employer] for Eviva mini cork shape SPECIMEN RADIOGRAPH: Specimen radiograph is taken in separate room using digital mammography. The index calcifications are in the excised cores. The needle was then removed and adequate hemostasis was achieved following approximately 30 minutes of manual compression. Estimated blood loss: Small amount POST PROCEDURE UNILATERAL DIGITAL MAMMOGRAM: The post biopsy mammogram is performed in separate room using separate digital mammography equipment from the biopsy procedure. ML 90 degrees, MLO and CC views are obtained. . The mini cork shape clip marker is in satisfactory position. Small local hematoma noted. The patient tolerated the procedure well. Home instructions reviewed with the patient. Final pathology results are pending. MM/MM stereotactic biopsy LT IMPRESSION: 1. Digital tomosynthesis-guided core biopsy left breast retroareolar calcifications with mini cork clip placement. Complicated by a small local hematoma. 2. Specimen radiograph taken and post procedure mammogram. There is satisfactory positioning of the mini cork shape biopsy clip. 3. Final pathology results pending. An addendum report will be issued. Electronically signed by: Elvira Zimmer MD 02/03/2025 02:38 PM [facility]
[2025-02-03] MEDS: Lidocaine HCl 1 % 20 ML VIAL 15 ML SUBCUT (09:24)
== END 2025-02-03 07:43 | disposition home or self-care (01) ==
LOC: HO.MAMMO 07:42
PROVIDERS: PCP Nurse Practitioner Family; Visit Provider Surgery
DX: R92.8 Other abnormal and inconclusive findings on diagnostic imaging of breast (principal)
CPT/HCPCS: 19081; 88305; 88342; J2003

== ENCOUNTER → 2025-02-03 08:00 | Outpatient (BNV) | payer OTHER, SELFPAY | PROVIDERS: PCP Nurse Practitioner Family; Visit Provider Radiology Body Imaging | DX: R92.8 Other abnormal and inconclusive findings on diagnostic imaging of breast (principal) | CPT/HCPCS: 19081; 77065 ==

== ENCOUNTER 2025-02-23 09:36 | Outpatient (AMB) | payer OTHER, SELFPAY ==
--- NOTE | 2025-02-23 09:38 | A.OFFVIS_ITS ---
Vital Signs 02/23/25 09:42 Height 5 ft 3 in Weight 118 lb 13.266 oz BMI 21.0 Respiration 16 Pulse 90 Intake Visit Reasons: bx results Intake Note: Patient is seen in office to discuss biopsy results. Pt c/o: biopsy site is still bruise and sore, has questions regarding next steps post bx Accompanied by: Family/Other Allergies amoxicillin Allergy (Intermediate, Verified 02/23/25 09:42) Vomiting HPI Comments Details: 54-year-old female patient returning following her recent stereotactic biopsy of the left breast performed on 02/03/2025 at the [facility]. Pathology revealed focal atypical lobular hyperplasia with dense stromal fibrosis with calcifications. She tolerated the procedure well but does note some bruising following the procedure. She presents today to discuss next steps including left breast lumpectomy with localizer. PFSH Medical History Pancytopenia Easy bruising Thrombocytopenia Menopause Loss of balance Hypersplenism Cytopenia ASCUS with positive high risk HPV cervical Alcoholic liver disease Alcohol abuse Surgical History History of bilateral carpal tunnel release Family History Mother Cancer of rectum Father Hypertension Social History Household Members: Significant Other Housing: Apartment Alcohol intake: current Alcohol intake frequency: 3 or more drinks per day Alcohol type: beer and hard liquor Patient Tobacco Use Status: Never used Tobacco e-Cigarette/Vaping Use: Never Used Second Hand Smoke Exposure: Yes (Fiance vapes) service: No Current occupational status: employed 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 Resp Effort & Inspection: normal respiratory effort Skin Other: Warm, dry, no rash Neuro General: patient oriented x3 Assessment & Plan Assessment & Plan (1) Atypical lobular hyperplasia (ALH) of left breast: Code(s): N60.92 - Unspecified benign mammary dysplasia of left breast Category: Medical Plan 54-year-old female patient presenting with a recently diagnosed left breast atypical lobular hyperplasia. I reviewed the pathology results and mammographic findings in detail with the patient and discussed the recommendation of a left breast lumpectomy with localizer. I reviewed the procedure, risks and alternatives, and she consents to the left breast lumpectomy. I also discussed the high-risk breast cancer protocol for enhanced screening. She expressed understanding and agrees with the plan. She will be scheduled as a short-stay surgery for the left breast lumpectomy with localizer. Coding Level of Care Code Est Pt Level 4 (16630) Diagnoses Atypical lobular hyperplasia (ALH) of left breast N60.92
[2025-02-23 09:42] VITALS: PULSE 90; RESP 16; BMI 21.0
== END 2025-02-23 10:16 | disposition home or self-care (01) ==
LOC: HO.HGS 09:37
PROVIDERS: PCP Nurse Practitioner Family; Visit Provider Surgery
DX: N60.92 Unspecified benign mammary dysplasia of left breast (principal)
CPT/HCPCS: 99214

== ENCOUNTER → 2025-02-23 09:36 | Outpatient (BNVA) | payer OTHER, SELFPAY | PROVIDERS: PCP Nurse Practitioner Family; Visit Provider Surgery | DX: Z71.2 Person consulting for explanation of examination or test findings (principal); N60.92 Unspecified benign mammary dysplasia of left breast | CPT/HCPCS: 99212 ==

== ENCOUNTER 2025-03-11 11:21 | Outpatient (AMB) | payer OTHER, SELFPAY ==
--- NOTE | 2025-03-11 11:24 | MHC.PC.OV ---
Vital Signs 03/11/25 11:31 Height 5 ft 3 in Weight 123 lb 8 oz BMI 21.9 BP 124/68 Blood Pressure Location Lt brachial Position Sitting Respiration 12 Pulse 93 Pulse Source Pulse Oximeter Temp 97.5 F Temp Source Oral Pulse Oximetry (%) 97 Oxygen Delivery Method Room Air Intake Visit Reasons: Left Breast surgery at [facility] Intake Note: Pre op for breast surgery at [facility]. Patient went to urgent care this past Sunday and was diagnosed with ear infection and patient states she is still not feeling better. Tree Specialist Required: No Allergies amoxicillin Allergy (Intermediate, Verified 03/11/25 11:53) Vomiting Medication List - Last Reconciled 03/11/25 by Jazmin Tate, MOLDER TRIMMER- albuterol 90 mcg/actuation mcg inhalation benzonatate 100 mg PO TID loratadine (Allergy Relief (loratadine)) 10 mg PO DAILY magnesium citrate 100 mg PO BEDTIME multivitamin 1 tab PO DAILY Tobacco use date assessed: 03/11/25 Dental Screening Dental Screen Date: 03/11/25 Did you have a dental visit in the last 12 months?: Yes Did you have a dental problem in the last 6 months where you did not have access to dental care?: No Was dental information given to patient?: Patient has dentist HPI HPI Comments History of Present Illness Details 54-year-old female with alcohol use disorder, liver cirrhosis, pancytopenia, splenomegaly, family history of rectal cancer in her mom, L breast Foocal atypical lobular hyperplasia 12/2024 History of Present Illness The patient is a 54 year old female presenting with a preoperative clearance for an upcoming left breast lumpectomy. Preoperative Surgical Clearance and Focal Atypical Lobular Dysplasia of Left Breast: - The patient was recently diagnosed with left breast focal atypical lobular dysplasia and is scheduled for a left breast lumpectomy with a localizer by Dr. Jordan. - A surgery date has not been set, pending this preoperative clearance. - The surgeon desires to perform the procedure before . - The patient has significant ecchymosis on the breast from a prior procedure, which has persisted for approximately three weeks. - She has tried cold compresses and was advised to use a moist heating pad to help with reabsorption. Upper Respiratory Infection: - The patient went to an urgent care on Sunday with complaints of ear pain, sore throat, cough, and a feeling of heaviness in her chest. - She was not tested for COVID-19 or influenza at that visit and reports no improvement in her symptoms. - She reports that her cough has mostly resolved but she still has a mild cough, sore throat, and tender glands. - She was prescribed cough pills which caused lightheadedness. - No antibiotics were prescribed at the urgent care visit. Alcohol Use Disorder: - The patient reports a history of alcohol use disorder and had been sober for one year before a recent relapse. - She is currently seeing a therapist for support. - She was previously on Vivitrol but discontinued it as she felt it was not helping. Past Medical History: - In addition to alcohol use disorder, the patient has a history of liver cirrhosis, pancytopenia, and splenomegaly. - Her liver condition contributes to easy bruising. - Family history is significant for rectal cancer in her mother. - The patient has a history of prior surgeries which she tolerated well without complications from anesthesia. - She denies any history of heart surgery, atrial fibrillation, asthma, or diabetes. - She reports being able to climb stairs without chest pain. - Current medications include albuterol inhaler as needed, loratadine, and a multivitamin, with magnesium taken as needed for sleep and Tylenol as needed for headaches. - She reports experiencing significant stress and crying daily. Past Medical History - Alcohol use disorder, with recent relapse after one year of sobriety - Liver cirrhosis - Pancytopenia - Splenomegaly - Left breast focal atypical lobular dysplasia - Prior surgeries, tolerated without complication - COVID-19 infection (3 previous episodes) - Family History: Mother with rectal cancer. - Allergies: Amoxicillin Review of Systems - Constitutional: Denies fever. Reports feeling unwell. - Eyes/Ears/Nose/Throat: Reports ear pain, sore throat, and tender glands. Denies hearing loss. - Cardiovascular: Denies chest pain, including with exertion. Denies history of atrial fibrillation. - Respiratory: Reports a mild residual cough and a sensation of chest heaviness. Denies shortness of breath. Denies history of asthma. - Hematologic/Lymphatic: Reports easy bruising. Denies history of pancytopenia. - Endocrine: Denies history of diabetes. - Psychiatric: Reports feeling stressed and crying daily. Reports feeling scared. Surgery Type: left breast lumpectomy with localizer Dr Jordan Anesthesia Type: Surgeon: Dr Jordan Date: TBD Any past surgical procedures: denies Any complications from anesthesia or in post-op period: denies ASA or NSAID Use: denies Current smoker: denies Alcohol use: Y daily Drug use: denies METs: 4 climb flight of stairs, golf, walk, yardwork Medical history: Asthma denies COPD denies Obesity bMI 21.9 Diabetes denies AL < 6 weeks, unstable angina, CHF, severe valve disease Denies Physical Exam General: Well developed, well nourished, in no acute distress. Appears stated age. Head: Normocephalic, atraumatic. Eyes: Pupils are equal, round and reactive to light and accommodation. Conjunctivae are clear. Ears: TM intact bilat, mild clouding in L Nose: patent, + pansinus TTP Pharynx: clear, shotty ac adenopathy bilat Lungs: Clear to auscultation bilaterally. No rales, rhonchi or wheeze noted. Good air flow in all you. Chest: Ecchymosis to L breast Heart: Regular rate and rhythm. No murmurs, click, rubs or gallops are noted. Psych: Mood and affect appropriate, but patient reports feeling mentally stressed and crying every day. Results - Tests and Diagnostics: EKG was normal. Labs pending Medical Decision Making The patient is a 54-year-old female with a complex medical history including alcohol-related liver cirrhosis, pancytopenia, and splenomegaly, who presents for preoperative clearance for a left breast lumpectomy. She is also acutely ill with symptoms of an upper respiratory infection, including ear pain, sore throat, cough, and tender cervical lymph nodes. Physical exam revealed fluid behind the left tympanic membrane. Surgical clearance is contingent upon resolving her acute illness and obtaining updated lab work due to her underlying conditions. Swabs for COVID-19, influenza, and RSV were collected to differentiate between viral and bacterial etiologies for her current symptoms. If the viral panel is negative, antibiotics will be prescribed. A blood draw was ordered to assess her baseline hematologic and metabolic status, which is crucial given her pancytopenia and liver disease. The patient's easy bruising is consistent with her liver disease and impaired clotting ability. Her recent relapse in alcohol use is concerning, especially in the perioperative period, and the risk of withdrawal was noted. Given these factors, clearance is currently a work in progress, and Dr. Jordan's office will be updated on her status. Plan 1. Preoperative Surgical Clearance - The patient's clearance for surgery is currently pending. - Blood work has been ordered and will be completed today. - A COVID-19/Flu/RSV swab was performed to evaluate her acute illness, as surgery will be delayed if she is unwell. - Will message Dr. Jordan's office to update them on the patient's status and the pending clearance. 2. Focal Atypical Lobular Dysplasia Of Left Breast - Proceed with planned left breast lumpectomy once medical clearance is granted. - The patient was educated that her easy bruising is related to her liver condition and that she should expect more bruising after the procedure. - She was advised to use moist heat and gentle massage on the breast to help with the reabsorption of the current ecchymosis. 3. Upper Respiratory Infection - A triple swab for COVID-19, influenza, and RSV was collected. - If the results are negative, a course of antibiotics will be prescribed. - If the results are positive, the condition is viral and will be managed with supportive care as it runs its course. - The patient will be notified of the results via the patient portal. 4. Alcohol Use Disorder - The patient has relapsed after one year of sobriety. - She continues to see a therapist. - The risk of alcohol withdrawal in the perioperative period was noted. - Continue to monitor and support sobriety efforts. Patient Instructions - Go to the lab to have your blood drawn today before you leave. - The results of your COVID/flu/RSV swab may take up to 24 hours to come back. You will be able to see the results on the patient portal as soon as they are available, and I will follow up with you. - If your swab test is negative, I will call in a prescription for antibiotics. If it is positive, the illness is viral and will need to run its course. - For the bruising on your breast, you can apply a moist, warm compress, like a wet towel heated in the microwave for a few seconds. You can also perform gentle massage. - Your surgical clearance is pending until we have the results of your tests. My office will contact your surgeon's office to keep them updated. - It is normal to feel scared, but you are in good hands with your surgeon, Dr. Jordan. Consent Patient was informed and verbally consented to the use of an ambient scribe for clinic note documentation during this visit. Total time spent caring for the patient today was 40 minutes. This includes time spent before the visit reviewing the chart, time spent during the visit, and time spent after the visit on documentation, reviewing laboratory results, diagnostic imaging, medications, performing a medically necessary evaluation, counseling on diagnoses, care coordination, ordering appropriate tests, ordering appropriate medications, review of tests performed by other providers, reporting test results with the patient, communication with other healthcare providers. [facility] Medical History Pancytopenia Easy bruising Thrombocytopenia Menopause Loss of balance Hypersplenism Cytopenia ASCUS with positive high risk HPV cervical Alcoholic liver disease Alcohol abuse Surgical History History of bilateral carpal tunnel release Family History Mother Cancer of rectum Father Hypertension Social History Household Members: Significant Other Housing: Apartment Alcohol intake: current Alcohol intake frequency: 3 or more drinks per day Alcohol type: beer and hard liquor Patient Tobacco Use Status: Never used Tobacco e-Cigarette/Vaping Use: Never Used Second Hand Smoke Exposure: Yes (Fiance vapes) service: No Current occupational status: employed 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 1. Little interest or pleasure in doing things: not at all 2. Feeling down, depressed, or hopeless: not at all 3. Trouble falling or staying asleep, or sleeping too much: not at all 4. Feeling tired or having little energy: not at all 5. Poor appetite or overeating: not at all 6. Feeling bad about yourself - or that you are a failure or have let yourself or your family down: not at all 7. Trouble concentrating on things, such as reading the newspaper or watching television: not at all 8. Moving or speaking so slowly that other people could have noticed. Or the opposite - being so fidgety or restless that you have been moving around a lot more than usual: not at all 9. Thoughts that you would be better off or of hurting yourself in some way: not at all Total score: 0 Depression Screening Interpretation: Negative Depression Screening Done: Yes 70851 - PHQ-9 Billing: Yes Source: Developed by Drs. Hossein Dougherty, Starla Harmon, Song Fernandez and colleagues, with an educational marco a from [employer]. Thrive Questionnaire Date Thrive assessed: 03/11/25 I am a: Patient What is your living situation today?: I have a steady place to live Within the past 12 months, did the food you bought not last and you didn't have the money to get more?: Never true Within the past 12 months, did you worry whether your food would run out before you got money to buy more?: Never true Do you have trouble paying for medicines?: No Do you have trouble getting transportation to medical appointments?: No Do you have trouble paying your heating and electricity bill?: No Do you have trouble taking care of your child, family member or friend?: No Do you have trouble with day-to-day activities such as bathing, preparing meals, shopping, managing finances, etc.?: No Are you currently unemployed and looking for a job?: No Are you interested in more education?: No Please select the resources that you would like help with: None Currently or been in a relationship where the following occur: No concerns reported THRIVE Score: 0 LETICIA-7 AMB Questionnaire LETICIA-7 Date LETICIA - 7 assessed: 03/11/25 Feeling nervous, anxious, or on edge: 0 = Not at all Not being able to stop or control worryin = Not at all Worrying too much about different things: 0 = Not at all Trouble relaxin = Not at all Being so restless that it is hard to sit still: 0 = Not at all Becoming easily annoyed or irritable: 0 = Not at all Feeling afraid as if something awful might happen: 0 = Not at all Total LETICIA-7 score (0-4 normal; 5-9 mild; 10-14 moderate; 15-21 severe): 0 Source: Developed by Drs. Hossein Dougherty, Starla Harmon, Song Fernandez and colleagues, with an educational marco a from [employer]. LETICIA-7 Assessment Billing LETICIA-7 Assessment Tool: LETICIA-7 Assessment 76493 Physical exam (Primary Care) Vital Signs: Last Vital Signs Temp 97.5 F 03/11/25 11:31 Pulse 93 03/11/25 11:31 Resp 12 03/11/25 11:31 BP 124/68 03/11/25 11:31 Pulse Ox 97 03/11/25 11:31 Oxygen Delivery Method Room Air 03/11/25 11:31 BMI result Body Mass Index 21.9 Tobacco/Smoking Status: Tobacco use Status Tobacco use date assessed 03/11/25 03/11/25 11:32 Patient Tobacco Use Status Never used Tobacco 03/11/25 11:32 e-Cigarette/Vaping Use Never Used 03/11/25 11:32 PHQ-9: PHQ-9 Score PHQ-9: Total score 0 03/11/25 11:48 Depression Screening Interpretation: Negative Thrive Assessment: Date of Thrive Assessment Date Thrive assessed 03/11/25 03/11/25 11:32 Currently or been in a relationship where the following occur: No concerns reported Office Procedures EKG [id number], Complete Coding Level of Care Code Est Pt Level 5 (10335) Add On Problem Visit Only Diagnoses Pre-op exam Z01.818 Alcohol use disorder, severe, dependence F10.20 Alcoholic cirrhosis of liver without ascites K70.30 Ascites presence: without ascites Atypical lobular hyperplasia (ALH) of left breast N60.92 Pancytopenia D61.818 Viral URI J06.9 CPT Codes EKG - CPT: 90542-[id number], Complete ([id number]) Additional Codes LETICIA-7 Assessment Billing - LETICIA-7 Assessment Tool: LETICIA-7 Assessment 35400 ([id number]) PHQ-9 - 69114 - PHQ-9 Billing: Yes ([id number]) Assessment & Plan Assessment & Plan (1) Pre-op exam: Code(s): Z01.818 - Encounter for other preprocedural examination (2) Alcohol use disorder, severe, dependence: Comment: She is doing well with Vivitrol Code(s): F10.20 - Alcohol dependence, uncomplicated Category: Medical (3) Cirrhosis, alcoholic: Code(s): K70.30 - Alcoholic cirrhosis of liver without ascites Category: Medical Qualifiers: Ascites presence: without ascites Qualified Code(s): K70.30 - Alcoholic cirrhosis of liver without ascites (4) Atypical lobular hyperplasia (ALH) of left breast: Code(s): N60.92 - Unspecified benign mammary dysplasia of left breast Category: Medical (5) Pancytopenia: Code(s): D61.818 - Other pancytopenia Category: Medical (6) Viral URI: Code(s): J06.9 - Acute upper respiratory infection, unspecified Plan . Orders: Orders Comprehensive Met. Panel Today D61.818 - Other pancytopenia, K70.30 - Alcoholic cirrhosis of liver without ascites Prothrombin Time INR Today D61.818 - Other pancytopenia, K70.30 - Alcoholic cirrhosis of liver without ascites Partial Thromboplastin Time Today D61.818 - Other pancytopenia, K70.30 - Alcoholic cirrhosis of liver without ascites SARS-CoV2/FLU/RSV Today R09.89 - Other specified symptoms and signs involving the circulatory and respiratory systems Complete Blood Count no Diff Today D61.818 - Other pancytopenia, K70.30 - Alcoholic cirrhosis of liver without ascites
[2025-03-11 11:31] VITALS: BP 124/68; PULSE 93; RESP 12; TEMP 36.4; O2SAT 97; BMI 21.9
== END 2025-03-11 12:05 | disposition home or self-care (01) ==
LOC: HO.HMCFM 11:22
PROVIDERS: PCP Nurse Practitioner Family; Visit Provider Nurse Practitioner Family
DX: Z01.818 Encounter for other preprocedural examination (principal); J06.9 Acute upper respiratory infection, unspecified; K70.30 Alcoholic cirrhosis of liver without ascites; F10.20 Alcohol dependence, uncomplicated; D61.818 Other pancytopenia; N60.92 Unspecified benign mammary dysplasia of left breast

== ENCOUNTER 2025-03-11 11:21 | Outpatient (REF) | payer OTHER, SELFPAY ==
[2025-03-11 15:21] LABS: INTERNATIONAL NORM RATIO 1.2 (0.9-1.1); Prothrombin Time 14.5 SEC (11.2-13.5)
[2025-03-11 15:24] LABS: Partial Thromboplastin Time 35.3 SEC (26.7-34.1)
[2025-03-11 16:13] LABS: Resp Syncy Virus RNA Qual PCR NEGATIVE (Negative); SARS COV2 PCR INHOUSE NEGATIVE (Negative)
[2025-03-11 18:53] LABS: Hematocrit 35.0 % (37.0-47.0); Hemoglobin 11.4 g/dl (12.0-16.0); Mean Corpuscular HGB Conc 32.6 g/dl (31.0-35.0); Mean Corpuscular Hemoglobin 29.2 pg (27.0-33.0); Mean Corpuscular Volume 89.5 fL (80.0-98.0); NRBC Abs Auto 0.000 X10*3/uL (0.0-0.012); NRBC Pct Auto 0.0 /100WBC (0.0-0.2); Red Blood Count 3.91 X10*6/uL (4.20-5.50)
[2025-03-11 18:58] LABS: Alanine Aminotransferase 47 U/L (0-31); Albumin Level 4.3 g/dL (3.5-5.0); Alkaline Phosphatase 84 U/L (39-117); Anion Gap 15 (12-20); Aspartate Amino Transferase 151 U/L (5-31); Blood Urea Nitrogen 4 mg/dL (9-16); Calcium 9.4 mg/dL (8.4-10.2); Carbon Dioxide 27 mmol/L (22-29); Chloride 102 mmol/L (96-108); Estimated Glomerular Filt Rate > 60; Potassium 3.9 mmol/L (3.3-5.1); Sodium 140 mmol/L (135-145); Total Protein 7.4 g/dL (6.5-8.0)
[2025-03-11 19:00] LABS: White Blood Count 0.9 X10*3/uL (4.8-10.8)
[2025-03-11 19:01] LABS: Platelet Count 10 X10*3/uL (160-400)
== END 2025-03-11 11:22 | disposition home or self-care (01) ==
LOC: HO.LAB 11:21
PROVIDERS: PCP Nurse Practitioner Family; Visit Provider Nurse Practitioner Family
DX: Z01.818 Encounter for other preprocedural examination (principal); K70.30 Alcoholic cirrhosis of liver without ascites; D61.818 Other pancytopenia; R09.89 Other specified symptoms and signs involving the circulatory and respiratory systems; F10.20 Alcohol dependence, uncomplicated; N60.92 Unspecified benign mammary dysplasia of left breast; J06.9 Acute upper respiratory infection, unspecified
CPT/HCPCS: 36415; 80053; 85027; 85610; 85730; 87637; 93005; 96127; 99212